=== PATIENT | male | born 1940 | race Caucasian/White ===

== ENCOUNTER 2018-05-02 10:23 | Inpatient (IN) | payer OTHER, MEDICARE ==
[2018-05-02] VITALS (9 sets, daily range): BP systolic 106–142; BP diastolic 51–64; PULSE 60–71; RESP 18–28; TEMP 96.9–99; O2SAT 92–100
[~2018-05-02] VITALS: Ht 182.9 cm; Wt 93.1 kg
[~2018-05-02 10:23] MED LIST: AMLO5TAB2 PO; ATOR40TA16 PO; LISI-515 PO; METF1000 PO; MULT-135 PO; PANT40TA3 PO; TOLT1CAP4 PO; TRAM50 PO; WARF-23 PO
--- NOTE | 2018-05-02 10:44 | PD ---
HPI Chief Complaint: Respiratory Symptoms Time Seen by Provider: 10:30 Travel History International Travel<30 days: No Contact w/Intl Traveler<30days: No Traveled to known affect area: No History of Present Illness HPI This 77-year-old male is complaining of increasing shortness of breath. He says he has been short of breath for 3 or 4 weeks. He has a history of COPD. He smokes a pack of cigarettes a day. He also has had heart valve replacement. He has a [facility]. Basim's valve and is on Coumadin. He is not aware of any history of congestive heart failure. He does have a history of neuropathy of the legs. He has had some swelling of his legs. He had been on water pills and he stopped them about a week ago because are making him urinate quite often. He denies any recent chest pain. He does have a pacemaker. He has been more unsteady on his feet than usual and has had several falls recently PFSH Past Medical History Hx Anticoagulant Therapy: Yes (COUMADIN) Arthritis: Yes Asthma: No Autoimmune Disease: No Anxiety: No Depression: No Heart Rhythm Problems: Yes (HX AFIB, PACER PLACED) Cancer: Yes (BLADDER OVER 10 YEARS) Cardiovascular Problems: Yes (HEART VALVE/PACER) High Cholesterol: Yes (HX) Chemotherapy: Yes (BCG TREATMENTS) Chest Pain: No Congestive Heart Failure: No COPD: No Cerebrovascular Accident: Yes Diabetes: Yes (TYPE 11) Endocrine: No Gastrointestinal Disorders: Yes (GIB) GERD: Yes Genitourinary: Yes (ENLARGED PROSTATE) Hiatal Hernia: Yes (repaired) Hypertension: Yes Immune Disorder: No Implanted Vascular Access Dvce: Yes Musculoskeletal: Yes Neurologic: Yes Psychiatric: No Reproductive: No Respiratory: No Migraines: No Radiation Therapy: No Seizures: No Sickle Cell Disease: No Sleep Apnea: No Thyroid Disease: No Ulcer: No Past Surgical History Abdominal Surgery: Yes (HIATAL HERNIA) AICD: No Arteriovenous Shunt: No Cardiac Surgery: Yes (AORTIC VALVE REPLACEMENT;PACEMAKER) Ear Surgery: No Endocrine Surgery: No Eye Surgery: No Genitourinary Surgery: Yes (BLADDER POLYP REMOVED) Gynecologic Surgery: No Insulin Pump: No Joint Replacement: Yes (RIGHT ) Oral Surgery: No Pacemaker: Yes Thoracic Surgery: No Valve Replacement: Yes Other Surgery: Yes (hiatal hernia repair) Social History Alcohol Use: No Tobacco Use: Yes (PPD) Substance Use: No Allergies-Medications (Allergen,Severity, Reaction): Coded Allergies: MRI PRECAUTION (Verified Adverse Reaction, Severe, ST BASIM PACEMAKER MODEL #[id number], 05/02/18) DML celecoxib (Unverified Adverse Reaction, Unknown, Bleeding, 05/02/18) severe bleeding had to receive 9 units of blood Reported Meds & Prescriptions Reported Meds & Active Scripts Active Reported B12 (Cyanocobalamin) 1,000 Mcg Tab Gabapentin 100 Mg Cap 100 Mg PO BID Multi-Vitamin Daily (Multivitamin) 1 Each Tablet Feosol (Ferrous Sulfate) 325 Mg (65 Mg Iron) Tab 200 Mg PO DAILY Ditropan (Oxybutynin Chloride) 5 Mg Tab 5 Mg PO Q12HR Atorvastatin (Atorvastatin Calcium) 40 Mg Tab 40 Mg PO HS Warfarin 5 Mg Tab 5 Mg PO DAILY Lisinopril 20 Mg Tab 20 Mg PO DAILY Metformin (Metformin HCl) 1,000 Mg Tab 1,000 Mg PO BIDPC With meals Review of Systems General / Constitutional: No: Fever, Chills Eyes: No: Diploplia, Blurred Vision HENT: No: Headaches, Vertigo Cardiovascular: Positive: Edema, No: Chest Pain or Discomfort, Palpitations Respiratory: Positive: Cough, Shortness of Breath, No: Wheezing, Hemoptysis Gastrointestinal: No: Nausea, Vomiting Genitourinary: Positive: Frequency Musculoskeletal: No: Myalgias Skin: No Rash, No Itching Neurologic: Positive: Weakness, Dizziness Endocrine: No: Heat Intolerance, Cold Intolerance Hematologic/Lymphatic: No: Easy Bruising Physical Exam Narrative GENERAL well-developed male SKIN: Focused skin assessment warm/dry. Multiple ecchymotic areas HEAD: Atraumatic. Normocephalic. EYES: Pupils equal and round. No scleral icterus. No injection or drainage. ENT: No nasal bleeding or discharge. Mucous membranes pink and moist. NECK: Trachea midline. No JVD. CARDIOVASCULAR: Regular rate and rhythm. No murmur appreciated. RESPIRATORY: There are occasional rhonchi. There are bibasilar rales GASTROINTESTINAL: Abdomen soft, non-tender, nondistended. Hepatic and splenic margins not palpable. MUSCULOSKELETAL: No obvious deformities. No clubbing. No cyanosis. Bilateral pedal edema NEUROLOGICAL: Awake and alert. No obvious cranial nerve deficits. Motor grossly within normal limits. Slow speech. PSYCHIATRIC: Appropriate mood and affect; insight and judgment normal. Data Data Last Documented VS Vital Signs Date Time Temp Pulse Resp B/P (MAP) Pulse Ox O2 Delivery O2 Flow Rate FiO2 05/02/18 11:00 62 28 119/51 (73) 96 Nasal Cannula 2.00 05/02/18 10:25 99.0 Orders Orders Complete Blood Count With Diff (05/02/18 10:41) Comprehensive Metabolic Panel (05/02/18 10:41) B-Type Natriuretic Peptide (05/02/18 10:41) Act Partial Throm Time (Ptt) (05/02/18 10:41) Prothrombin Time / Inr (Pt) (05/02/18 10:41) Magnesium (Mg) (05/02/18 10:41) Troponin I (05/02/18 10:41) Ua Includes Microscopic (05/02/18 10:41) Iv Access Insert/Monitor (05/02/18 10:41) Electrocardiogram (05/02/18 10:41) Ecg Monitoring (05/02/18 10:41) Oximetry (05/02/18 10:41) Oxygen Administration (05/02/18 10:41) Chest, Single Ap (05/02/18 10:41) Sodium Chloride 0.9% Flush (Ns Flush) (05/02/18 10:45) Albuterol-Ipratropium Neb (Duoneb Neb) (05/02/18 10:45) Ct Brain W/O Iv Contrast(Rout) (05/02/18 11:28) Furosemide Inj (Lasix Inj) (05/02/18 11:45) Admit Order (Ed Use Only) (05/02/18 11:47) Labs Laboratory Tests Test 05/02/18 10:40 White Blood Count 13.8 TH/MM3 Red Blood Count 3.36 MIL/MM3 Hemoglobin 9.6 GM/DL Hematocrit 28.9 % Mean Corpuscular Volume 85.9 FL Mean Corpuscular Hemoglobin 28.7 PG Mean Corpuscular Hemoglobin Concent 33.4 % Red Cell Distribution Width 17.7 % Platelet Count 277 TH/MM3 Mean Platelet Volume 7.6 FL Neutrophils (%) (Auto) 85.6 % Lymphocytes (%) (Auto) 4.9 % Monocytes (%) (Auto) 8.1 % Eosinophils (%) (Auto) 0.1 % Basophils (%) (Auto) 1.3 % Neutrophils # (Auto) 11.8 TH/MM3 Lymphocytes # (Auto) 0.7 TH/MM3 Monocytes # (Auto) 1.1 TH/MM3 Eosinophils # (Auto) 0.0 TH/MM3 Basophils # (Auto) 0.2 TH/MM3 CBC Comment DIFF FINAL Differential Comment Prothrombin Time 56.9 SEC Prothromb Time International Ratio 5.7 RATIO Activated Partial Thromboplast Time 57.8 SEC Blood Urea Nitrogen 59 MG/DL Creatinine 3.80 MG/DL Random Glucose 103 MG/DL Total Protein 7.6 GM/DL Albumin 3.1 GM/DL Calcium Level 8.2 MG/DL Magnesium Level 1.8 MG/DL Alkaline Phosphatase 69 U/L Aspartate Amino Transf (AST/SGOT) 25 U/L Alanine Aminotransferase (ALT/SGPT) 20 U/L Total Bilirubin 0.5 MG/DL Sodium Level 128 MEQ/L Potassium Level 5.6 MEQ/L Chloride Level 99 MEQ/L Carbon Dioxide Level 15.4 MEQ/L Anion Gap 14 MEQ/L Estimat Glomerular Filtration Rate 16 ML/MIN Troponin I 0.04 NG/ML B-Type Natriuretic Peptide 1125 PG/ML [facility] Medical Decision Making Medical Screen Exam Complete: Yes Emergency Medical Condition: Yes Medical Record Reviewed: Yes Differential Diagnosis EKG shows a paced rhythm. Hemoglobin is 9.6 with a white count of 13.8. Sodium is 128 with potassium of 5.6 BUN is elevated at 59 with creatinine of 3.8. Creatinine was previously normal. His INR is 5.7. Patient has congestive failure but also has renal insufficiency. His oxygen saturation on arrival was about 88-90. He has been given repeated nebulizer treatments. He has been diagnosed with COPD in the past and he continues to smoke a pack a day. Narrative Course Patient has CHF and renal insufficiency. He has been given 40 mg IV Lasix. We will need to be admitted for further evaluation Diagnosis Primary Impression: CHF (congestive heart failure) Additional Impression: Renal insufficiency Admitting Information Admitting Physician Requests: Admit Zander Claudio MD May 02, 2018 10:44
[2018-05-02] MEDS ORDERED: SODIUM CHLORIDE 0.9% FLUSH 10 ML FLUSH IVF PRN (10:45)
[2018-05-02] MEDS: RESP: ALBUTEROL 2.5 MG/IPRATROPIUM 0.5 MG NEB (SCH) INH ×2 (10:47→10:48)
[2018-05-02] MEDS ORDERED: FERR200T PO (11:00)
[2018-05-02] MEDS ORDERED: OXYB5TAB8 PO (11:00)
[2018-05-02] MEDS ORDERED: CYAN1TAB24 (11:00)
[2018-05-02] MEDS ORDERED: GABA100C4 PO (11:00)
[2018-05-02] MEDS ORDERED: MULT1TAB46 (11:00)
[2018-05-02 11:03] LABS: AUTOMATED NEUTROPHIL # 11.8 TH/MM3 (1.8-7.7); BASOPHIL # 0.2 TH/MM3 (0-0.2); BASOPHIL % 1.3 % (0.0-2.0); EOSINOPHIL % 0.1 % (0.0-4.0); HEMATOCRIT 28.9 % (39.0-51.0); HEMOGLOBIN 9.6 GM/DL (13.0-17.0); LYMPH % 4.9 % (9.0-44.0); LYMPHOCYTE # 0.7 TH/MM3 (1.0-4.8); MEAN CELL VOLUME 85.9 FL (80.0-100.0); MEAN CORPUSCULAR HEMOGLOBIN 28.7 PG (27.0-34.0); MEAN CORPUSCULAR HGB CONC 33.4 % (32.0-36.0); MEAN PLATELET VOLUME 7.6 FL (7.0-11.0); MONO % 8.1 % (0.0-8.0); MONOCYTE # 1.1 TH/MM3 (0-0.9); NEUT % 85.6 % (16.0-70.0); PLATELET COUNT 277 TH/MM3 (150-450); RED BLOOD COUNT 3.36 MIL/MM3 (4.50-5.90); RED CELL DISTRIBUTION WIDTH 17.7 % (11.6-17.2); WHITE BLOOD COUNT 13.8 TH/MM3 (4.0-11.0)
[2018-05-02 11:16] LABS: CHLORIDE 99 MEQ/L (98-107); SODIUM (NA) 128 MEQ/L (136-145)
[2018-05-02 11:20] LABS: ALBUMIN 3.1 GM/DL (3.4-5.0); CALCIUM 8.2 MG/DL (8.5-10.1)
[2018-05-02 11:21] LABS: BICARBONATE 15.4 MEQ/L (21.0-32.0); BLOOD UREA NITROGEN 59 MG/DL (7-18); GLUCOSE,RANDOM 103 MG/DL (74-106); MAGNESIUM 1.8 MG/DL (1.5-2.5)
[2018-05-02 11:22] LABS: INTERNATIONAL NORMALIZED RATIO 5.7 RATIO; PROTHROMBIN TIME - PATIENT 56.9 SEC (9.8-11.6)
[2018-05-02 11:24] LABS: ALT (GPT) 20 U/L (12-78); AST (GOT) 25 U/L (15-37); GLOMERULAR FILTRATION RATE 16 ML/MIN (>89)
[2018-05-02 11:25] LABS: TOTAL BILIRUBIN ADULT 0.5 MG/DL (0.2-1.0); TOTAL PROTEIN 7.6 GM/DL (6.4-8.2)
--- NOTE | 2018-05-02 11:26 | RADRPT ---
EXAM DATE: 05/02/2018 11:14 AM EDT AGE/SEX: 77 years / Male INDICATIONS: Short of breath CLINICAL DATA: This is the patient's initial encounter. Patient reports that signs and symptoms have been present for 1 month and indicates a pain score of 4/10. MEDICAL/SURGICAL HISTORY: Chronic obstructive pulmonary disease. Hypertension. Carcinoma, kylee dder. AFIb, GERD, Diabetes II Pacemaker. Aortic valve replacement, Hiatal hernia repair COMPARISON: [facility] – [place], CHEST SINGLE AP, 11/21/2016. . FINDINGS: A single AP view of the chest demonstrates cardiomegaly. Pulmonary vessels are engorged. Interstitial prominence throughout the lungs. No effusions. Pacing device overlies the left chest. Median sternot mely wires noted. CONCLUSION: Cardiomegaly with pulmonary vascular engorgement and mild interstitial edema. Electronically signed by: Prudencio Renee MD 05/02/2018 11:25 AM EDT
[2018-05-02 11:27] LABS: ALKALINE PHOSPHATASE 69 U/L (45-117)
[2018-05-02 11:29] LABS: TROPONIN I 0.04 NG/ML (0.02-0.05)
[2018-05-02] MEDS ORDERED: FUROSEMIDE 40 MG/4 ML VIAL IV PUSH ONE (11:45)
[2018-05-02] MEDS ORDERED: RESP: ALBUTEROL 2.5 MG/IPRATROPIUM 0.5 MG NEB (PRN) NEB (12:00)
[2018-05-02] MEDS ORDERED: GLUCAGON 1 MG/ML VIAL OTHER PRN (12:00)
[2018-05-02] MEDS ORDERED: DEXTROSE 50% IN WATER 50 ML VIAL(D50) IV PUSH PRN (12:00)
[2018-05-02] MEDS: INSULIN ASPART SUPPLEMENTAL SCALE SQ SCH ×3 (12:00→20:45)
[2018-05-02] MEDS ORDERED: SODIUM CHLORIDE 0.9% FLUSH 10 ML FLUSH IV FLUSH PRN (12:00)
[2018-05-02] MEDS ORDERED: ACETAMINOPHEN 325 MG TAB PO PRN (12:15)
[2018-05-02] MEDS ORDERED: CALCIUM CARBONATE 500 MG CHEWABLE TAB CHEW PRN (12:15)
[2018-05-02] MEDS ORDERED: ONDANSETRON HCL 4 MG/2 ML VIAL IV PUSH PRN (12:15)
[2018-05-02] MEDS ORDERED: DOCUSATE SODIUM 100 MG CAP PO PRN (12:15)
--- NOTE | 2018-05-02 12:17 | RADRPT ---
EXAM DATE: 05/02/2018 12:01 PM EDT AGE/SEX: 77 years / Male INDICATIONS: Multiple falls. Evaluate for dural hematoma. CLINICAL DATA: This is the patient's initial encounter. Patient reports that signs and symptoms have been present for 3 days and indicates a pain score of 0/10. MEDICAL/SURGICAL HISTORY: Gastroesophageal reflux disease. Carcinoma, bladder. Cerebrovascular di sease. Cardiovascular disease. Hypertension. Diabetes. Pacemaker. Hiatal hernia repair. Aortic v alve replacement. RADIATION DOSE: 58.83 CTDI (mGy) [place] [facility] [place]2016. . TECHNIQUE: CT of the head without contrast. Using automated exposure control and adjustment of the mA and/or kV according to patient size, radiation dose was kept as low as reasonably achievable to ob tain optimal diagnostic quality images. FINDINGS: There is a tiny lacunar infarct in the left parietal periventricular white matter and patchy diminish ed attenuation in periventricular white matter elsewhere. These findings are stable. There is no evid ence of intracranial mass or hemorrhage. There is nothing to suggest acute infarction. The ventricles are stable and symmetric. Posterior fossa and brainstem are unremarkable. The extracranial structure s are benign and intact. CONCLUSION: Stable brain appearance. No acute findings. Electronically signed by: Omar Trent MD 05/02/2018 12:15 PM EDT
[2018-05-02] MEDS: RESP: ALBUTEROL 2.5 MG/IPRATROPIUM 0.5 MG NEB (SCH) NEB ×2 (13:49→19:58)
--- NOTE | 2018-05-02 14:57 | RADRPT ---
EXAM DATE: 05/02/2018 2:37 PM EDT AGE/SEX: 77 years / Male INDICATIONS: Increased Bun and Creatinine. CLINICAL DATA: This is the patient's initial encounter. Patient reports that signs and symptoms have been present for 1 day and indicates a pain score of 0/10. MEDICAL/SURGICAL HISTORY: Hypercholesterolemia. Hypertension. Gastroesophageal reflux disease . CVA. UTI. Bladder polyp. Enlarged prostate. Diabetes. Bladder cancer. Hiatal hernia. . Pacemaker. Aortic valve replacement. Right hip. Hiatal hernia repaired. Bladder polyp removed. COMPARISON: [facility] [place] ABDOMEN & PELVIS W/O CONTRAST, 08/23/2016. . MEASUREMENTS: Right Kidney:__12.6 x 7.3 x 6.9 cm cm Left Kidney:__12.5 x 5.1 x 7.1 cm cm FINDINGS: Right Kidney: There is moderate to severe hydronephrosis without a mass. Left Kidney: There is moderate to severe hydronephrosis without a mass. Bladder: The bladder is distended with estimated volume of 1331 cc and the patient could not void. CONCLUSION: 1. Significantly distended bladder and significant hydronephrosis in the kidneys not present on the prior examination. Distended bladder and the patient was unable to void possibility of bladder outlet obstruction should be entertained. Electronically signed by: Cindy Kincaid MD 05/02/2018 2:56 PM EDT
--- NOTE | 2018-05-02 15:02 | PD.PN.STU ---
Subjective Remarks HPI 77yo male with valve replacement and pacemaker, brought to the ER today for inability to urinate and increase in falls. and daughter are at bedside and provided most of the history. 7 days ago, pt experiencing urinary urgency, frequency, and dysuria. He began taking cipro 2x daily 5 days ago but stopped it after 3 days due to GI upset. His brought him in today because he has not been able to urinate and has not been eating. He fell while trying to get into the car to go to the ER. He fell 3 days ago when he lost his balance in the yard. He uses a cane to ambulate but his says he seems more off balance lately. Daughter says his struggles to walk because of pain from arthritis and always sounds out of breath. Pt denies any changes in his breathing or problems with SOB. They deny any hx of CHF or CKD. PCP is Dr. Gambino. Last saw [facility] in November. Was given lasix for leg swelling but stopped the med 3 weeks ago due to increased urination. Follows with Dr. Franco for chronic anemia. PMH COPD Valve Replacement Pacemaker Chronic anemia DM2 Leg neuropathy hx Bladder CA 10+ years Enlarged Prostate PSH Aortic Valve replacement Pacemaker Hiatal Hernia repair Bladder polyp removal R. Hip replacement Meds Gabapentin Iron oxybutynin Atorvastatin Warfarin Lisinopril Metformin Stiolto Objective Vitals Vital Signs Date Time Temp Pulse Resp B/P (MAP) Pulse Ox O2 Delivery O2 Flow Rate FiO2 05/02/18 13:52 99 2.00 05/02/18 13:19 96.9 60 18 122/60 (80) 96 05/02/18 12:56 05/02/18 11:00 62 28 119/51 (73) 96 Nasal Cannula 2.00 05/02/18 10:35 60 28 93 Nasal Cannula 3.00 05/02/18 10:25 99.0 63 20 142/64 (90) 92 Result Diagram: 05/02/18 1040 05/02/18 1040 Other Results Laboratory Tests Test 05/02/18 10:40 White Blood Count 13.8 TH/MM3 Red Blood Count 3.36 MIL/MM3 Hemoglobin 9.6 GM/DL Hematocrit 28.9 % Mean Corpuscular Volume 85.9 FL Mean Corpuscular Hemoglobin 28.7 PG Mean Corpuscular Hemoglobin Concent 33.4 % Red Cell Distribution Width 17.7 % Platelet Count 277 TH/MM3 Mean Platelet Volume 7.6 FL Neutrophils (%) (Auto) 85.6 % Lymphocytes (%) (Auto) 4.9 % Monocytes (%) (Auto) 8.1 % Eosinophils (%) (Auto) 0.1 % Basophils (%) (Auto) 1.3 % Neutrophils # (Auto) 11.8 TH/MM3 Lymphocytes # (Auto) 0.7 TH/MM3 Monocytes # (Auto) 1.1 TH/MM3 Eosinophils # (Auto) 0.0 TH/MM3 Basophils # (Auto) 0.2 TH/MM3 CBC Comment DIFF FINAL Differential Comment Prothrombin Time 56.9 SEC Prothromb Time International Ratio 5.7 RATIO Activated Partial Thromboplast Time 57.8 SEC Blood Urea Nitrogen 59 MG/DL Creatinine 3.80 MG/DL Random Glucose 103 MG/DL Total Protein 7.6 GM/DL Albumin 3.1 GM/DL Calcium Level 8.2 MG/DL Magnesium Level 1.8 MG/DL Alkaline Phosphatase 69 U/L Aspartate Amino Transf (AST/SGOT) 25 U/L Alanine Aminotransferase (ALT/SGPT) 20 U/L Total Bilirubin 0.5 MG/DL Sodium Level 128 MEQ/L Potassium Level 5.6 MEQ/L Chloride Level 99 MEQ/L Carbon Dioxide Level 15.4 MEQ/L Anion Gap 14 MEQ/L Estimat Glomerular Filtration Rate 16 ML/MIN Troponin I 0.04 NG/ML B-Type Natriuretic Peptide 1125 PG/ML Imaging Last Impressions Head CT 05/02/18 1128 Signed Impressions: CONCLUSION: Stable brain appearance. No acute findings. Chest X-Ray 05/02/18 1041 Signed Impressions: CONCLUSION: Cardiomegaly with pulmonary vascular engorgement and mild interstitial edema . Objective Remarks General - Well developed, no acute distress, oriented. Skin - numerous bruises on arms and chest consistent with fall. Skin tear over pacemaker HEENT - atraumatic, normocephalic. Pupils equal and reactive. Mouth mucosa is dry, upper dentures Cardiovascular - Regular rate and rhythm. No JVD. 2+ edema up to knees. Pulmonary - Bilateral crackles. On nasal cannula 2 L. No accessory muscle use. Abdominal - No pain with palpation. Neurologic - No focal deficits. Medications and IVs Current Medications Medications (Trade) Dose Ordered Sig/Ludmila Route PRN Reason Start Time Stop Time Status Last Admin Dose Admin Sodium Chloride (NS Flush) 2 ml BID IV FLUSH 05/02/18 21:00 Sodium Chloride (NS Flush) 2 ml UNSCH PRN IV FLUSH FLUSH AFTER USING IV ACCESS 05/02/18 12:00 Furosemide (Lasix Inj) 40 mg BID@09,18 IVP 05/02/18 18:00 Dextrose (D50w (Vial) Inj) 50 ml UNSCH PRN IV PUSH HYPOGLYCEMIA-SEE COMMENTS 05/02/18 12:00 Glucagon (Glucagon Inj) 1 mg UNSCH PRN OTHER HYPOGLYCEMIA-SEE COMMENTS 05/02/18 12:00 Insulin Aspart (NovoLOG SUPPLEMENTAL SCALE) 1 ACHS SLIDING SCALE SQ 05/02/18 12:00 Albuterol/ Ipratropium (Duoneb Neb) 1 ampule Q6HR WHILE AWAKE NEB NEB 05/02/18 14:00 05/02/18 13:49 Albuterol/ Ipratropium (Duoneb Neb) 1 ampule Q2HR NEB PRN NEB SOB/WHEEZING 05/02/18 12:00 Acetaminophen (Tylenol) 650 mg Q4H PRN PO Temp > 100.4 05/02/18 12:15 Ondansetron HCl (Zofran Inj) 4 mg Q6H PRN IV PUSH NAUSEA 05/02/18 12:15 Docusate Sodium (Colace) 100 mg BID PRN PO CONSTIPATION 05/02/18 12:15 Magnesium Hydroxide (Milk Of Magnesia Liq) 30 ml DAILY PRN PO for Severe Constipation 05/02/18 12:15 Calcium Carbonate (Tums Chew) 1,000 mg TID PRN CHEW DYSPEPSIA 05/02/18 12:15 Temazepam (Restoril) 15 mg HS PRN PO INSOMNIA 05/02/18 12:15 A/P Assessment and Plan 77yo male presents with inability to urinate and increase in falls Urinary Retention obstruction vs. medication Urinary cath of 1500cc Hx enlarged prostate Child Hold oxybutynin Consult urologist CHF: acute BNP 1125 CXR cardiomegaly, pulmonary vascular engorgement Order Echo Lasix - monitor cr Liquid restriction diet Acute Kidney Injury etiology urinary obstruction vs CHF Cr 3.8 BUN 59 repeat BMP tomorrow, suspect improvement with diuresis and child placement Possible UTI Urinalysis with culture Falls Hx peripheral neuropathy and falls CT neg - unlikely TIA/stroke PT evaluation DM2: chronic, stable Accu checks Sliding scale insulin Hx Valve replacement: chronic, stable Hold coumadin today Monitor INR daily COPD: chronic Wean O2 if sats are stable Breathing tx PRN The exam, history, and the medical decision-making described in the above note were completed with the assistance of KAMRAN Mohr. I reviewed and agree with the findings presented. I attest that I had a [id number] encounter with the patient on the same day, and personally performed and documented my assessment and findings in the medical record. Lelia Mohr May 02, 2018 15:02 Larisa Hurtado MD May 02, 2018 15:42
[2018-05-02] MEDS ORDERED: TAMSULOSIN HCL 0.4 MG CAP PO ONE (15:15)
--- NOTE | 2018-05-02 15:41 | HHI.HP ---
HPI Service [facility] Primary Care Physician Adele Snell MD Admission Diagnosis CHF, RENAL INSUFFICIENCY Diagnoses: Chief Complaint: Weakness, probalems urinating. Travel History International Travel<30 Days: No Contact w/Intl Traveler <30 Da: No Traveled to Known Affected Are: No History of Present Illness 77-year-old male with a medical history significant for diabetes, aortic valve replacement, pacemaker placement, history of bladder cancer and BPH who presented to the hospital for worsening weakness, trouble urinating and dysuria. History obtained from the patient's daughter who is a nurse and his at bedside. The report for the past couple of weeks, the patient has been having problems with urinary urgency, dysuria, and frequency. He is not able to empty his bladder. They thought he had a urinary tract infection and started him on leftover Cipro about 5 days ago for a few days but he stopped taking it due to GI side effects. Overall the patient has poor functional status and has been having issues with shortness of breath, reportedly recently diagnosed with COPD. He has had increasing bilateral lower extremity swelling, 2 pillow orthopnea. Workup in the emergency room revealed acute renal failure, evidence of acute CHF. Review of Systems Constitutional: DENIES: Fever, Chills Respiratory: COMPLAINS OF: Shortness of breath Cardiovascular: DENIES: Chest pain, Dyspnea on Exertion Gastrointestinal: DENIES: Nausea, Vomiting Genitourinary: COMPLAINS OF: Urinary frequency, Urgency, Dysuria Except as stated in HPI: all other systems reviewed are Neg Past Family Social History Past Medical History PMH COPD Valve Replacement Pacemaker Chronic anemia DM2 Leg neuropathy hx Bladder CA 10+ years Enlarged Prostate Past Surgical History Aortic Valve replacement Pacemaker Hiatal Hernia repair Bladder polyp removal R. Hip replacement Reported Medications Reported Meds & Active Scripts Active Reported B12 (Cyanocobalamin) 1,000 Mcg Tab Gabapentin 100 Mg Cap 100 Mg PO BID Multi-Vitamin Daily (Multivitamin) 1 Each Tablet Feosol (Ferrous Sulfate) 325 Mg (65 Mg Iron) Tab 200 Mg PO DAILY Ditropan (Oxybutynin Chloride) 5 Mg Tab 5 Mg PO Q12HR Atorvastatin (Atorvastatin Calcium) 40 Mg Tab 40 Mg PO HS Warfarin 5 Mg Tab 5 Mg PO DAILY Lisinopril 20 Mg Tab 20 Mg PO DAILY Metformin (Metformin HCl) 1,000 Mg Tab 1,000 Mg PO BIDPC With meals Allergies: Coded Allergies: MRI PRECAUTION (Verified Adverse Reaction, Severe, [facility] PACEMAKER MODEL #[id number], 05/02/18) DML celecoxib (Unverified Adverse Reaction, Unknown, Bleeding, 05/02/18) severe bleeding had to receive 9 units of blood Social History Patient continues to smoke 1 pack of cigarettes per day. Occasional alcohol. Physical Exam Vital Signs Vital Signs Date Time Temp Pulse Resp B/P (MAP) Pulse Ox O2 Delivery O2 Flow Rate FiO2 05/02/18 13:52 99 2.00 05/02/18 13:19 96.9 60 18 122/60 (80) 96 05/02/18 12:56 05/02/18 11:00 62 28 119/51 (73) 96 Nasal Cannula 2.00 05/02/18 10:35 60 28 93 Nasal Cannula 3.00 05/02/18 10:25 99.0 63 20 142/64 (90) 92 Physical Exam GENERAL: Elderly and frail male SKIN: Multiple wounds involving the upper torso from. One wound over his pacemaker appear more deep. Another superficial wound over the right shoulder. HEAD: Atraumatic. Normocephalic. No temporal or scalp tenderness. EYES: Pupils equal round and reactive. Extraocular motions intact. No scleral icterus. No injection or drainage. ENT: Nose without bleeding, purulent drainage or septal hematoma. Throat without erythema, tonsillar hypertrophy or exudate. Uvula midline. Airway patent. NECK: Trachea midline. No JVD or lymphadenopathy. Supple, nontender, no meningeal signs. CARDIOVASCULAR: Regular rate and rhythm without murmurs, gallops, or rubs. RESPIRATORY: Bilateral basilar crackles. Wet cough. GASTROINTESTINAL: Abdomen soft, non-tender, nondistended. MUSCULOSKELETAL: 2+ bilateral lower extremity edema NEUROLOGICAL: Awake and alert. Normal speech. Moves all extremities Laboratory Laboratory Tests Test 05/02/18 10:40 White Blood Count 13.8 Red Blood Count 3.36 Hemoglobin 9.6 Hematocrit 28.9 Mean Corpuscular Volume 85.9 Mean Corpuscular Hemoglobin 28.7 Mean Corpuscular Hemoglobin Concent 33.4 Red Cell Distribution Width 17.7 Platelet Count 277 Mean Platelet Volume 7.6 Neutrophils (%) (Auto) 85.6 Lymphocytes (%) (Auto) 4.9 Monocytes (%) (Auto) 8.1 Eosinophils (%) (Auto) 0.1 Basophils (%) (Auto) 1.3 Neutrophils # (Auto) 11.8 Lymphocytes # (Auto) 0.7 Monocytes # (Auto) 1.1 Eosinophils # (Auto) 0.0 Basophils # (Auto) 0.2 CBC Comment DIFF FINAL Differential Comment Prothrombin Time 56.9 Prothromb Time International Ratio 5.7 Activated Partial Thromboplast Time 57.8 Blood Urea Nitrogen 59 Creatinine 3.80 Random Glucose 103 Total Protein 7.6 Albumin 3.1 Calcium Level 8.2 Magnesium Level 1.8 Alkaline Phosphatase 69 Aspartate Amino Transf (AST/SGOT) 25 Alanine Aminotransferase (ALT/SGPT) 20 Total Bilirubin 0.5 Sodium Level 128 Potassium Level 5.6 Chloride Level 99 Carbon Dioxide Level 15.4 Anion Gap 14 Estimat Glomerular Filtration Rate 16 Troponin I 0.04 B-Type Natriuretic Peptide 1125 Result Diagram: 05/02/18 1040 05/02/18 1040 Imaging Last Impressions Head CT 05/02/18 1128 Signed Impressions: CONCLUSION: Stable brain appearance. No acute findings. Chest X-Ray 05/02/18 1041 Signed Impressions: CONCLUSION: Cardiomegaly with pulmonary vascular engorgement and mild interstitial edema . Renal Ultrasound 05/02/18 0000 Signed Impressions: CONCLUSION: 1. Significantly distended bladder and significant hydronephrosis in the kidne ys not present on the prior examination. Distended bladder and the patient was unable to void possibility of bladder outlet obstruction should be entertained. Caprini VTE Risk Assessment Caprini VTE Risk Assessment: Mod/High Risk (score >= 2) VTE Pharm Contraindication: Coagulopathy,INR elevated Caprini Risk Assessment Model Point Value = 1 Point Value = 2 Point Value = 3 Point Value = 5 Age 41-60 Minor surgery BMI > 25 kg/m2 Swollen legs Varicose veins or History of unexplained or recurrent spontaneous Oral contraceptives or hormone replacement Sepsis (< 1 month) Serious lung disease, including pneumonia (< 1 month) Abnormal pulmonary function Acute myocardial infarction Congestive heart failure (< 1 month) History of inflammatory bowel disease Medical patient at bed rest Age 61-74 Arthroscopic surgery Major open surgery (> 45 min) Laparoscopic surgery (> 45 min) Malignancy Confined to bed (> 72 hours) Immobilizing plaster cast Central venous access Age >= 75 History of VTE Family history of VTE Factor V Leiden Prothrombin [id number] Lupus anticoagulant Anticardiolipin antibodies Elevated serum homocysteine Heparin-induced thrombocytopenia Other congenital or acquired thrombophilia Stroke (< 1 month) Elective arthroplasty Hip, pelvis, or leg fracture Acute spinal cord injury (< 1 month) Prophylaxis Regimen Total Risk Factor Score Risk Level Prophylaxis Regimen 0-1 Low Early ambulation 2 Moderate Order ONE of the following: *Sequential Compression Device (SCD) *Heparin 5000 units SQ BID 3-4 Higher Order ONE of the following medications: *Heparin 5000 units SQ TID *Enoxaparin/Lovenox 40 mg SQ daily (WT < 150 kg, CrCl > 30 mL/min) *Enoxaparin/Lovenox 30 mg SQ daily (WT < 150 kg, CrCl > 10-29 mL/min) *Enoxaparin/Lovenox 30 mg SQ BID (WT < 150 kg, CrCl > 30 mL/min) AND/OR *Sequential Compression Device (SCD) 5 or more Highest Order ONE of the following medications: *Heparin 5000 units SQ TID (Preferred with Epidurals) *Enoxaparin/Lovenox 40 mg SQ daily (WT < 150 kg, CrCl > 30 mL/min) *Enoxaparin/Lovenox 30 mg SQ daily (WT < 150 kg, CrCl > 10-29 mL/min) *Enoxaparin/Lovenox 30 mg SQ BID (WT < 150 kg, CrCl > 30 mL/min) AND *Sequential Compression Device (SCD) Assessment and Plan Problem List: (1) Acute renal failure ICD Code: N17.9 - Acute kidney failure, unspecified (2) CHF (congestive heart failure) ICD Code: I50.9 - Heart failure, unspecified Status: Acute (3) HTN (hypertension) ICD Code: I10 - Essential (primary) hypertension Status: Chronic (4) Tobacco dependence ICD Code: F17.200 - Nicotine dependence, unspecified, uncomplicated Status: Chronic (5) Warfarin-induced coagulopathy ICD Code: T45.511A - Poisoning by anticoagulants, accidental (unintentional), initial encounter; D68.9 - Coagulation defect, unspecified Status: Acute (6) BPH (benign prostatic hyperplasia) ICD Code: N40.0 - Enlarged prostate without lower urinary tract symptoms Status: Chronic (7) COPD (chronic obstructive pulmonary disease) ICD Code: J44.9 - Chronic obstructive pulmonary disease, unspecified Status: Acute Assessment and Plan 77 Y/O male presents with worsening urinary retention, fluid overload, renal failure evidence of CHF. Acute renal failure/Urinary retention/obstruction: Likely secondary to combination of urinary retention, CHF - Pulido placed. 1500 cc out with 10 minutes - Known history of BPH. Start Flomax - Treat CHF with Lasix. Follow I/O closely. Acute CHF: BNP 1125, CXR personally reviewed showing cardiomegaly, pulmonary edema. History of aortic valve replacement and atrial fibrillation. - Lasix IV 40 mg twice daily - Follow I/O - Hold off on lisinopril and beta-wally given acute exacerbation and elevated potassium -2D echo ordered. Possible UTI: - Check UA Debility: Likely secondary to above comorbid conditions. PT to evaluate DM2: chronic, stable Accu checks Sliding scale insulin Hx Valve replacement: chronic, stable. INR 5.7 today Hold Coumadin today Monitor INR daily COPD: chronic Wean O2 if sats are stable Breathing tx PRN Discussed Condition With Lelia Mohr MS4 Physician Certification 2 Midnight Certification Type: Admission for Inpatient Services Order for Inpatient Services The services are ordered in accordance with Medicare regulations or non- Medicare payer requirements, as applicable. In the case of services not specified as inpatient-only, they are appropriately provided as inpatient services in accordance with the 2-midnight benchmark. Estimated LOS (days): 3 days is the estimated time the patient will need to remain in the hospital, assuming treatment plan goals are met and no additional complications. Post-Hospital Plan: [facility] Larisa Hurtado MD May 02, 2018 15:41
[2018-05-02] MEDS: FUROSEMIDE 40 MG/4 ML VIAL IVP SCH (17:18)
--- NOTE | 2018-05-02 17:38 | PD.CONS ---
HPI Service Nephrology Consult Requested By Dr. Hurtado Reason for Consult Acute renal failure Primary Care Physician Adele Snell MD History of Present Illness Patient is a 77-year-old white male with history of diabetes, aortic valve replacement, COPD, bladder cancer status post treatment 10 years ago, who was brought in because he was unable to void, has dysuria, poor stream, unable to empty his bladder and lower abdominal discomfort, ultrasound of the kidneys showed bilateral hydronephrosis with distended bladder, possible bladder outlet obstruction, patient continues to smoke cigarettes that he states he is aware of enlarged prostate but has not followed up with urology, Pulido catheter is in place and he is passing urine 3.2 L was collected. His baseline creatinine was 0.8 in October 2016. Current creatinine is 3.8 and potassium was 5.6. Review of Systems Constitutional: COMPLAINS OF: Fatigue Respiratory: COMPLAINS OF: Cough, Shortness of breath Genitourinary: COMPLAINS OF: Urgency, Dysuria Musculoskeletal: COMPLAINS OF: Joint pain, Stiffness, Joint Swelling, Back pain Past Family Social History Allergies: Coded Allergies: MRI PRECAUTION (Verified Adverse Reaction, Severe, [facility] PACEMAKER MODEL #[id number], 05/02/18) DML celecoxib (Unverified Adverse Reaction, Unknown, Bleeding, 05/02/18) severe bleeding had to receive 9 units of blood Past Medical History COPD Valve Replacement Pacemaker Chronic anemia DM2 Leg neuropathy hx Bladder CA 10+ years Enlarged Prostate AVM and GI bleed CVA Past Surgical History Aortic Valve replacement Pacemaker Hiatal Hernia repair Bladder polyp removal R. Hip replacement Reported Medications Reported Meds & Active Scripts Active Reported B12 (Cyanocobalamin) 1,000 Mcg Tab Gabapentin 100 Mg Cap 100 Mg PO BID Multi-Vitamin Daily (Multivitamin) 1 Each Tablet Feosol (Ferrous Sulfate) 325 Mg (65 Mg Iron) Tab 200 Mg PO DAILY Ditropan (Oxybutynin Chloride) 5 Mg Tab 5 Mg PO Q12HR Atorvastatin (Atorvastatin Calcium) 40 Mg Tab 40 Mg PO HS Warfarin 5 Mg Tab 5 Mg PO DAILY Lisinopril 20 Mg Tab 20 Mg PO DAILY Metformin (Metformin HCl) 1,000 Mg Tab 1,000 Mg PO BIDPC With meals Physical Exam Vital Signs Vital Signs Date Time Temp Pulse Resp B/P (MAP) Pulse Ox O2 Delivery O2 Flow Rate FiO2 6/6/18 17:02 66 05/02/18 13:52 99 2.00 05/02/18 13:19 96.9 60 18 122/60 (80) 96 05/02/18 12:56 05/02/18 11:00 62 28 119/51 (73) 96 Nasal Cannula 2.00 05/02/18 10:35 60 28 93 Nasal Cannula 3.00 05/02/18 10:25 99.0 63 20 142/64 (90) 92 05/02/18 03:00 96.9 71 18 120/58 (78) 100 Physical Exam GENERAL: Well-nourished, well-developed patient. SKIN: Warm and dry. HEAD: Normocephalic. EYES: No scleral icterus. No injection or drainage. NECK: Supple, trachea midline. No JVD or lymphadenopathy. CARDIOVASCULAR: Regular rate and rhythm without murmurs, gallops, or rubs. RESPIRATORY: Breath sounds diminished at bases with occasional rhonchi GASTROINTESTINAL: Abdomen soft, non-tender, nondistended. EXTREMITIES: No cyanosis, or edema. NEUROLOGICAL: Awake, alert, and oriented x 3. Non-focal. Laboratory Laboratory Tests Test 05/02/18 10:40 05/02/18 16:45 White Blood Count 13.8 Red Blood Count 3.36 Hemoglobin 9.6 Hematocrit 28.9 Mean Corpuscular Volume 85.9 Mean Corpuscular Hemoglobin 28.7 Mean Corpuscular Hemoglobin Concent 33.4 Red Cell Distribution Width 17.7 Platelet Count 277 Mean Platelet Volume 7.6 Neutrophils (%) (Auto) 85.6 Lymphocytes (%) (Auto) 4.9 Monocytes (%) (Auto) 8.1 Eosinophils (%) (Auto) 0.1 Basophils (%) (Auto) 1.3 Neutrophils # (Auto) 11.8 Lymphocytes # (Auto) 0.7 Monocytes # (Auto) 1.1 Eosinophils # (Auto) 0.0 Basophils # (Auto) 0.2 CBC Comment DIFF FINAL Differential Comment Prothrombin Time 56.9 Prothromb Time International Ratio 5.7 Activated Partial Thromboplast Time 57.8 Blood Urea Nitrogen 59 Creatinine 3.80 Random Glucose 103 Total Protein 7.6 Albumin 3.1 Calcium Level 8.2 Magnesium Level 1.8 Alkaline Phosphatase 69 Aspartate Amino Transf (AST/SGOT) 25 Alanine Aminotransferase (ALT/SGPT) 20 Total Bilirubin 0.5 Sodium Level 128 Potassium Level 5.6 Chloride Level 99 Carbon Dioxide Level 15.4 Anion Gap 14 Estimat Glomerular Filtration Rate 16 Troponin I 0.04 0.03 B-Type Natriuretic Peptide 1125 Result Diagram: 05/02/18 1040 05/02/18 1040 Imaging Last Impressions Head CT 05/02/18 1128 Signed Impressions: CONCLUSION: Stable brain appearance. No acute findings. Chest X-Ray 05/02/18 1041 Signed Impressions: CONCLUSION: Cardiomegaly with pulmonary vascular engorgement and mild interstitial edema . Renal Ultrasound 05/02/18 0000 Signed Impressions: CONCLUSION: 1. Significantly distended bladder and significant hydronephrosis in the kidne ys not present on the prior examination. Distended bladder and the patient was unable to void possibility of bladder outlet obstruction should be entertained. Assessment and Plan Problem List: (1) Acute bilateral obstructive uropathy ICD Codes: N13.9 - Obstructive and reflux uropathy, unspecified Plan: Patient appears to have bladder neck obstruction due to enlarged prostate and needs to follow with urology He has responded well to Pulido catheter placement and has good urine output His potassium to decline with post obstructive diuresis (2) Acute renal failure ICD Codes: N17.9 - Acute kidney failure, unspecified Status: Acute Plan: Due to obstructive uropathy, please consult urology to follow-up Nephrology can monitor labs remotely We will follow as needed basis (3) BPH (benign prostatic hyperplasia) ICD Codes: N40.0 - Enlarged prostate without lower urinary tract symptoms Status: Chronic Plan: Urological consult (4) Warfarin-induced coagulopathy ICD Codes: T45.511A - Poisoning by anticoagulants, accidental (unintentional), initial encounter; D68.9 - Coagulation defect, unspecified Status: Acute Plan: INR is 5.7 Josemanuel Gonzalez MD May 02, 2018 17:38
--- NOTE | 2018-05-02 17:41 | ECHRPT ---
Indication: HEART FAILURE CONCLUSIONS Normal left ventricular size. Mild concentric left ventricular hypertrophy. The left ventricular systolic function is normal with an estimated ejection fraction in the range of 55-60%. The left atrial size is moderately dilated. The right atrial size is moderately dilated.. Aortic valve sclerosis and calcification. Moderate to severe aortic stenosis. Moderate mitral valve regurgitation. Heavy calcification of the posterior mitral valve leaflet. Mitral annular calcification. There is moderate tricuspid valve regurgitation. There is estimated [id number] pulmonary hypertension present (range 60-70 mmHg). BP: 122 / 60 HR: 60 Rhythm: Sinus MEASUREMENTS (Male / Female) Normal Values Technical Quality:Very technically difficult study 2D ECHO LV Diastolic Diameter PLAX 4.4 cm 4.2 - 5.9 / 3.9 - 5.3 cm LV Systolic Diameter PLAX 3.7 cm IVS Diastolic Thickness 1.4 cm 0.6 - 1.0 / 0.6 - 0.9 cm LVPW Diastolic Thickness 1.4 cm 0.6 - 1.0 / 0.6 - 0.9 cm LV Relative Wall Thickness 0.6 RV Internal Dim ED PLAX 4.1 cm LVOT Diameter 1.9 cm Aortic Root Diameter 3.1 cm DOPPLER AV Peak Velocity 377.0 cm/s AV Peak Gradient 56.9 mmHg AV Mean Gradient 36.5 mmHg AV Velocity Time Integral 107.5 cm LVOT Peak Velocity 70.5 cm/s LVOT Peak Gradient 2.0 mmHg LVOT Velocity Time Integral 13.6 cm AV Area Cont Eq vti 0.4 cm AV Area Cont Eq pk 0.5 cm Mitral E Point Velocity 184.0 cm/s LV E' Lateral Velocity 8.7 cm/s Mitral E to LV E' Lateral Ratio 21.2 LV E' Septal Velocity 6.3 cm/s Mitral E to LV E' Septal Ratio 29.0 TV Peak Velocity 378.0 cm/s TR Peak Velocity 386.0 cm/s TR Peak Gradient 59.6 mmHg Right Atrial Pressure 10.0 mmHg Pulmonary Artery Systolic Pressu 69.6 mmHg Right Ventricular Systolic Press 69.6 mmHg PV Peak Velocity 36.1 cm/s PV Peak Gradient 0.5 mmHg FINDINGS LEFT VENTRICLE Normal left ventricular size. Mild concentric left ventricular hypertrophy. The left ventricular systolic function is normal with an estimated ejection fraction in the range of 55-60%. RIGHT VENTRICLE Normal right ventricular size and systolic function. LEFT ATRIUM The left atrial size is moderately dilated. RIGHT ATRIUM The right atrial size is moderately dilated. ATRIAL SEPTUM No atrial level shunt is demonstrated by color flow Doppler interrogation. AORTA The aortic root and proximal ascending aorta are not well visualized. MITRAL VALVE Mild thickening of the mitral valve leaflets. Moderate mitral valve regurgitation. Heavy calcification of the posterior mitral valve leaflet. Mitral annular calcification. AORTIC VALVE Aortic valve area is 0.36 cm. Aortic valve mean gradient is 36.5 mmHg. The aortic prosthesis is not well visualized. Moderate to severe aortic stenosis. Aortic valve sclerosis and calcification. TRICUSPID VALVE There is moderate tricuspid valve regurgitation. The estimated pulmonary arterial pressure is 69.6 mmHg. There is estimated [id number] pulmonary hypertension present (range 60-70 mmHg). PULMONARY VALVE No pulmonary valve regurgitation or stenosis. VESSELS The inferior vena cava is normal in size. PERICARDIUM No pericardial effusion. Marco Stephenson MD, FACC (Electronically Signed) Final Date:02 May 2018 17:40
--- NOTE | 2018-05-02 18:15 | EKG ---
Date Performed: 05/02/2018 Time Performed: 10:53:52 PTAGE: 77 years EKG: ELECTRONIC VENTRICULAR PACEMAKER ABNORMAL RHYTHM ECG PREVIOUS TRACING : 11/19/2016 12.18 Since the previous tracing, no significant change noted DOCTOR: Marco Stephenson Interpretating Date/Time 05/02/2018 18:14:31
[2018-05-02] MEDS: TEMAZEPAM 15 MG CAP PO PRN (20:43)
[2018-05-02] MEDS: SODIUM CHLORIDE 0.9% FLUSH 10 ML FLUSH IV FLUSH SCH (20:43)
[2018-05-02 23:12] LABS: BILIRUBIN, URINE NEG (NEG); BLOOD, URINE LARGE (NEG); GLUCOSE,URINE NEG (NEG); KETONE, URINE NEG (NEG); NITRITE,URINE NEG (NEG); URINE COLOR YELLOW (YELLW/STRAW); URINE LEUKOCYTE ESTERASE SMALL (NEG)
[2018-05-02 23:22] LABS: SQUAMOUS EPITHELIAL CELL URINE 0-5 /hpf (0-5); WBC, URINE INNUM /hpf (0-5); WHITE BLOOD CELL CLUMPS MOD
[2018-05-02 23:23] LABS: AMORPHOUS SEDIMENT, URINE MOD; BACTERIA, URINE OCC /hpf
[2018-05-03] VITALS (11 sets, daily range): BP systolic 96–134; BP diastolic 42–60; PULSE 56–80; RESP 17–20; TEMP 97.1–98.4; O2SAT 92–96
[2018-05-03 06:12] LABS: AUTOMATED NEUTROPHIL # 9.4 TH/MM3 (1.8-7.7); BASOPHIL % 0.2 % (0.0-2.0); EOSINOPHIL # 0.1 TH/MM3 (0-0.4); EOSINOPHIL % 0.5 % (0.0-4.0); HEMATOCRIT 24.8 % (39.0-51.0); HEMOGLOBIN 8.3 GM/DL (13.0-17.0); LYMPH % 5.9 % (9.0-44.0); LYMPHOCYTE # 0.7 TH/MM3 (1.0-4.8); MEAN CELL VOLUME 86.1 FL (80.0-100.0); MEAN CORPUSCULAR HEMOGLOBIN 28.9 PG (27.0-34.0); MEAN CORPUSCULAR HGB CONC 33.5 % (32.0-36.0); MEAN PLATELET VOLUME 7.8 FL (7.0-11.0); MONO % 8.9 % (0.0-8.0); NEUT % 84.5 % (16.0-70.0); PLATELET COUNT 238 TH/MM3 (150-450); RED BLOOD COUNT 2.88 MIL/MM3 (4.50-5.90); RED CELL DISTRIBUTION WIDTH 17.3 % (11.6-17.2); WHITE BLOOD COUNT 11.2 TH/MM3 (4.0-11.0)
[2018-05-03 06:23] LABS: PROTHROMBIN TIME - PATIENT 71.3 SEC (9.8-11.6)
[2018-05-03 06:24] LABS: BICARBONATE 20.2 MEQ/L (21.0-32.0)
[2018-05-03 06:27] LABS: CREATININE 2.9 MG/DL (0.60-1.30)
[2018-05-03 06:30] LABS: INTERNATIONAL NORMALIZED RATIO 7.1 RATIO
[2018-05-03] MEDS: RESP: ALBUTEROL 2.5 MG/IPRATROPIUM 0.5 MG NEB (SCH) NEB ×3 (07:31→19:44)
[2018-05-03] MEDS: INSULIN ASPART SUPPLEMENTAL SCALE SQ SCH ×4 (08:00→22:08)
[2018-05-03] MEDS: TAMSULOSIN HCL 0.4 MG CAP PO SCH (08:58)
[2018-05-03] MEDS: FUROSEMIDE 40 MG/4 ML VIAL IVP SCH (08:58)
[2018-05-03] MEDS: SODIUM CHLORIDE 0.9% FLUSH 10 ML FLUSH IV FLUSH SCH ×2 (08:59→22:09)
--- NOTE | 2018-05-03 09:07 | PD.PN.STU ---
Subjective Remarks Patient is sitting up and eating breakfast. Reports feeling better than yesterday but says the compression stockings and SCD are causing him pain and irritation. Denies SOB or abdominal pain. Pulido is not bothering him. Slept through the night. Objective Vitals Vital Signs Date Time Temp Pulse Resp B/P (MAP) Pulse Ox O2 Delivery O2 Flow Rate FiO2 05/03/18 07:31 94 Nasal Cannula 3.00 05/03/18 04:31 97.9 56 20 104/50 (68) 94 05/03/18 00:28 97.1 62 20 96/42 (60) 95 05/02/18 21:02 98.0 67 20 106/56 (73) 94 05/02/18 20:14 62 05/02/18 20:00 94 Nasal Cannula 3.00 05/02/18 17:02 66 05/02/18 13:52 99 2.00 05/02/18 13:19 96.9 60 18 122/60 (80) 96 05/02/18 12:56 05/02/18 11:00 62 28 119/51 (73) 96 Nasal Cannula 2.00 05/02/18 10:35 60 28 93 Nasal Cannula 3.00 05/02/18 10:25 99.0 63 20 142/64 (90) 92 I/O 05/02/18 05/02/18 05/02/18 05/03/18 05/03/18 05/03/18 07:00 15:00 23:00 07:00 15:00 23:00 Intake Total 480 ml Output Total 4120 ml 400 ml Balance -3640 ml -400 ml Intake Oral 480 ml Output Urine Total 4120 ml 400 ml # Voids 1 # Bowel Movements 0 Result Diagram: 05/03/18 0510 05/03/18 0510 Other Results Laboratory Tests Test 05/02/18 10:40 05/02/18 16:45 05/02/18 22:20 05/02/18 23:00 White Blood Count 13.8 TH/MM3 Red Blood Count 3.36 MIL/MM3 Hemoglobin 9.6 GM/DL Hematocrit 28.9 % Mean Corpuscular Volume 85.9 FL Mean Corpuscular Hemoglobin 28.7 PG Mean Corpuscular Hemoglobin Concent 33.4 % Red Cell Distribution Width 17.7 % Platelet Count 277 TH/MM3 Mean Platelet Volume 7.6 FL Neutrophils (%) (Auto) 85.6 % Lymphocytes (%) (Auto) 4.9 % Monocytes (%) (Auto) 8.1 % Eosinophils (%) (Auto) 0.1 % Basophils (%) (Auto) 1.3 % Neutrophils # (Auto) 11.8 TH/MM3 Lymphocytes # (Auto) 0.7 TH/MM3 Monocytes # (Auto) 1.1 TH/MM3 Eosinophils # (Auto) 0.0 TH/MM3 Basophils # (Auto) 0.2 TH/MM3 CBC Comment DIFF FINAL Differential Comment Prothrombin Time 56.9 SEC Prothromb Time International Ratio 5.7 RATIO Activated Partial Thromboplast Time 57.8 SEC Blood Urea Nitrogen 59 MG/DL Creatinine 3.80 MG/DL Random Glucose 103 MG/DL Total Protein 7.6 GM/DL Albumin 3.1 GM/DL Calcium Level 8.2 MG/DL Magnesium Level 1.8 MG/DL Alkaline Phosphatase 69 U/L Aspartate Amino Transf (AST/SGOT) 25 U/L Alanine Aminotransferase (ALT/SGPT) 20 U/L Total Bilirubin 0.5 MG/DL Sodium Level 128 MEQ/L Potassium Level 5.6 MEQ/L Chloride Level 99 MEQ/L Carbon Dioxide Level 15.4 MEQ/L Anion Gap 14 MEQ/L Estimat Glomerular Filtration Rate 16 ML/MIN Troponin I 0.04 NG/ML 0.03 NG/ML 0.04 NG/ML B-Type Natriuretic Peptide 1125 PG/ML Urine Color YELLOW Urine Turbidity SL CLOUDY Urine pH 5.0 Urine Specific Mission 1.015 Urine Protein 30 mg/dL Urine Glucose (UA) NEG mg/dL Urine Ketones NEG mg/dL Urine Occult Blood LARGE Urine Nitrite NEG Urine Bilirubin NEG Urine Urobilinogen 0.2 MG/DL Urine Leukocyte Esterase SMALL Urine RBC 10-14 /hpf Urine WBC INNUM /hpf Urine WBC Clumps MOD Urine Squamous Epithelial Cells 0-5 /hpf Urine Amorphous Sediment MOD Urine Bacteria OCC /hpf Microscopic Urinalysis Comment CATH-CULTURE IND Test 05/03/18 05:10 05/03/18 05:40 White Blood Count 11.2 TH/MM3 Red Blood Count 2.88 MIL/MM3 Hemoglobin 8.3 GM/DL Hematocrit 24.8 % Mean Corpuscular Volume 86.1 FL Mean Corpuscular Hemoglobin 28.9 PG Mean Corpuscular Hemoglobin Concent 33.5 % Red Cell Distribution Width 17.3 % Platelet Count 238 TH/MM3 Mean Platelet Volume 7.8 FL Neutrophils (%) (Auto) 84.5 % Lymphocytes (%) (Auto) 5.9 % Monocytes (%) (Auto) 8.9 % Eosinophils (%) (Auto) 0.5 % Basophils (%) (Auto) 0.2 % Neutrophils # (Auto) 9.4 TH/MM3 Lymphocytes # (Auto) 0.7 TH/MM3 Monocytes # (Auto) 1.0 TH/MM3 Eosinophils # (Auto) 0.1 TH/MM3 Basophils # (Auto) 0.0 TH/MM3 CBC Comment DIFF FINAL Differential Comment Blood Urea Nitrogen 62 MG/DL Creatinine 2.90 MG/DL Random Glucose 101 MG/DL Calcium Level 8.0 MG/DL Sodium Level 131 MEQ/L Potassium Level 5.1 MEQ/L Chloride Level 101 MEQ/L Carbon Dioxide Level 20.2 MEQ/L Anion Gap 10 MEQ/L Estimat Glomerular Filtration Rate 21 ML/MIN Prothrombin Time 71.3 SEC Prothromb Time International Ratio 7.1 RATIO Test 05/02/18 10:40 05/03/18 05:40 Prothromb Time International Ratio 5.7 RATIO 7.1 RATIO Prothrombin Time 56.9 SEC (9.8-11.6) 71.3 SEC (9.8-11.6) Objective Remarks NAD, sitting up right Dimished breath sounds more so on the right lower lob, crackles, dullness on percussion right lower lobe. Regular rate and rhythm 2+ edema bilateral legs and feet, improved from yesterday. Medications and IVs Current Medications Medications (Trade) Dose Ordered Sig/Ludmila Route PRN Reason Start Time Stop Time Status Last Admin Dose Admin Sodium Chloride (NS Flush) 2 ml BID IV FLUSH 05/02/18 21:00 05/02/18 20:43 Sodium Chloride (NS Flush) 2 ml UNSCH PRN IV FLUSH FLUSH AFTER USING IV ACCESS 05/02/18 12:00 Furosemide (Lasix Inj) 40 mg BID@09,18 IVP 05/02/18 18:00 05/02/18 17:18 Dextrose (D50w (Vial) Inj) 50 ml UNSCH PRN IV PUSH HYPOGLYCEMIA-SEE COMMENTS 05/02/18 12:00 Glucagon (Glucagon Inj) 1 mg UNSCH PRN OTHER HYPOGLYCEMIA-SEE COMMENTS 05/02/18 12:00 Insulin Aspart (NovoLOG SUPPLEMENTAL SCALE) 1 ACHS SLIDING SCALE SQ 05/02/18 12:00 Albuterol/ Ipratropium (Duoneb Neb) 1 ampule Q6HR WHILE AWAKE NEB NEB 05/02/18 14:00 05/03/18 07:31 Albuterol/ Ipratropium (Duoneb Neb) 1 ampule Q2HR NEB PRN NEB SOB/WHEEZING 05/02/18 12:00 Acetaminophen (Tylenol) 650 mg Q4H PRN PO Temp > 100.4 05/02/18 12:15 Ondansetron HCl (Zofran Inj) 4 mg Q6H PRN IV PUSH NAUSEA 05/02/18 12:15 Docusate Sodium (Colace) 100 mg BID PRN PO CONSTIPATION 05/02/18 12:15 Magnesium Hydroxide (Milk Of Magnesia Liq) 30 ml DAILY PRN PO for Severe Constipation 05/02/18 12:15 Calcium Carbonate (Tums Chew) 1,000 mg TID PRN CHEW DYSPEPSIA 05/02/18 12:15 Temazepam (Restoril) 15 mg HS PRN PO INSOMNIA 05/02/18 12:15 05/02/18 20:43 Tamsulosin HCl (Flomax) 0.4 mg DAILY PO 05/03/18 09:00 A/P Assessment and Plan Warfarin induced Coagulopathy INR 7.1 Hold Coumadin Repeat INR tomorrow Urinary Retention: stable hx BPH continue flomax Pulido Awaiting consult urologist Acute Kidney Injury improving Cr 2.9, trending down Repeat BMP tomorrow UTI wbc 11.2 Urinalysis positive for leuk esterase/ wbc/ bacteria Pending cultures Begin Rocephin Possible CHF BNP 1125 CXR cardiomegaly, pulmonary vascular engorgement Waiting on Echo results Lasix for pulmonary edema - monitor cr, monitor ins/outs Falls Hx peripheral neuropathy and falls CT neg - unlikely TIA/stroke Hold gabapentin for now PT evaluation DM2: chronic, stable Accu checks Sliding scale insulin Hx Valve replacement: chronic, stable Hold coumadin today Monitor INR daily COPD: chronic Wean O2 if sats are stable Breathing tx PRN The exam, history, and the medical decision-making described in the above note were completed with the assistance of KAMRAN Mohr. I reviewed and agree with the findings presented. I attest that I had a [id number] encounter with the patient on the same day, and personally performed and documented my assessment and findings in the medical record. Lelia Mohr May 03, 2018 09:07 Larisa Hurtado MD May 03, 2018 13:12
--- NOTE | 2018-05-03 13:20 | HHI.PR ---
Subjective Remarks Patient reports he is feeling better today. He slept well last night. Denies increase in shortness of breath. Lower extremity edema is improving. -4 L on fluid balance. Objective Vitals Vital Signs Date Time Temp Pulse Resp B/P (MAP) Pulse Ox O2 Delivery O2 Flow Rate FiO2 05/03/18 09:43 98.0 60 20 112/56 (74) 95 05/03/18 09:09 98.4 80 18 98/54 (69) 96 05/03/18 07:31 94 Nasal Cannula 3.00 05/03/18 04:31 97.9 56 20 104/50 (68) 94 05/03/18 00:28 97.1 62 20 96/42 (60) 95 05/02/18 21:02 98.0 67 20 106/56 (73) 94 05/02/18 20:14 62 05/02/18 20:00 94 Nasal Cannula 3.00 05/02/18 17:02 66 05/02/18 13:52 99 2.00 05/02/18 13:19 96.9 60 18 122/60 (80) 96 I/O 05/02/18 05/02/18 05/02/18 05/03/18 05/03/18 05/03/18 07:00 15:00 23:00 07:00 15:00 23:00 Intake Total 480 ml Output Total 4120 ml 400 ml Balance -3640 ml -400 ml Intake Oral 480 ml Output Urine Total 4120 ml 400 ml # Voids 1 # Bowel Movements 0 Result Diagram: 05/03/18 0510 05/03/18 0510 Objective Remarks GENERAL: Elderly male in no acute distress CARDIOVASCULAR: Normal rate and regular rhythm without murmurs, gallops, or rubs. RESPIRATORY: Good respiratory efforts. Faint crackles at the bases otherwise clear to auscultation bilaterally. GASTROINTESTINAL: Abdomen soft, non-tender, non-distended. Normal active bowel sounds MUSCULOSKELETAL: 1+ bilateral lower extremity edema NEURO: Alert & Oriented x4 to person, place, time, situation. Moves all ext x4 PSYCH: Appropriate mood and affect. A/P Problem List: (1) Acute renal failure ICD Code: N17.9 - Acute kidney failure, unspecified Status: Acute (2) CHF (congestive heart failure) ICD Code: I50.9 - Heart failure, unspecified Status: Acute (3) HTN (hypertension) ICD Code: I10 - Essential (primary) hypertension Status: Chronic (4) Tobacco dependence ICD Code: F17.200 - Nicotine dependence, unspecified, uncomplicated Status: Chronic (5) Warfarin-induced coagulopathy ICD Code: T45.511A - Poisoning by anticoagulants, accidental (unintentional), initial encounter; D68.9 - Coagulation defect, unspecified Status: Acute (6) BPH (benign prostatic hyperplasia) ICD Code: N40.0 - Enlarged prostate without lower urinary tract symptoms Status: Chronic (7) COPD (chronic obstructive pulmonary disease) ICD Code: J44.9 - Chronic obstructive pulmonary disease, unspecified Status: Acute Assessment and Plan 77 Y/O male presents with worsening urinary retention, fluid overload, renal failure evidence of CHF. Acute renal failure/Urinary retention/obstruction: Likely secondary to combination of urinary retention, CHF - Pulido in place and draining well. - Known history of BPH. Patient started on Flomax. Avoid oxybutynin. -Continue to treat CHF with Lasix. Can transition to oral. Follow I/O closely. - Appreciate urology input. Patient is to be discharged with a Pulido to follow- up outpatient with urology. Acute CHF: BNP 1125, CXR personally reviewed showing cardiomegaly, pulmonary edema. History of aortic valve replacement and atrial fibrillation. -Status post Lasix IV. Transition to oral Lasix 20 mg daily - Follow I/O - Hold off on lisinopril and beta-wally given acute exacerbation and elevated potassium - 2D echo results pending Possible UTI: -Start Rocephin. Follow urine cultures Debility: Likely secondary to above comorbid conditions. PT to evaluate DM2: chronic, stable Accu checks Sliding scale insulin Warfarin induced coagulopathy/Hx Valve replacement: INR up to 7 today. No signs of any active bleeding Continue to hold Coumadin today Monitor INR daily COPD: chronic Wean O2 if sats are stable Breathing tx PRN Discharge Planning Follow-up 2D echo, follow urine cultures. Possible discharge in the next 1-2 days. Needs to DC with the Pulido catheter to follow-up outpatient with urology. PT to evaluate. Larisa Hurtado MD May 03, 2018 13:20
--- NOTE | 2018-05-03 17:02 | PD.WCN.NOT ---
Wound Consult Description: Wound consult ordered by for wound management. Communicated with: Alexia MEYERS, Recommendation: 1. Cleanse Right upper extremity and left chest skin tears with normal saline 2. Apply Versatel to right upper extremity skin tear cover with ABD secure with rolled gauze .leave Versatel in place x7 days may change secondary dressing if dressing becomes soiled or dislodged. 3. Apply Xeroform single layer to left chest skin tear change every other day or as needed for dislodgement/exudate 4. Sign and date all dressings.Please avoid placing Adhesive directly on patient skin. Additional Information: Patient was seen today by sports writer for wound management of right upper extremity/ left chest skin tears.Patient alert and oriented x4 MINTO.Denies any discomfort distress at this time.Dressings removed from right upper extremity and left upper chest.Patient noted to have ~4 superficial skin tears to right upper extremity .All skin tears cleansed with normal saline and pat dry Versatel one applied to wound bases and covered with ABD secured with rolled gauze.Dressings signed and dated.Scant bloody drainage noted to posterior forearm skin tear.no signs and symptoms of infection.Superficial skin tear to left upper chest over pace maker cleansed with normal saline and pat dry single layer of Xeroform applied to wound base and left open to air.Armament Mechanic was able to partial reapproximate skin flap on all skin tears.Patient has very friable skin sports writer would recommend avoiding any adhesive directly on skin.Patients INR with in normal range at this time.No acute signs or symptoms of bleeding noted.Patient tolerated wound care well.Armament Mechanic assisted patient in sitting up in bed and meal preparation.Patient had no further questions or concerns upon writers departure. Kev Hester [facility] May 03, 2018 17:02
--- NOTE | 2018-05-03 18:42 | EKG ---
Date Performed: 05/02/2018 Time Performed: 16:32:20 PTAGE: 77 years EKG: ELECTRONIC VENTRICULAR PACEMAKER Consider lateral injury. Underlying rhythm is probably art rial fibrillation. Since PREVIOUS TRACING , no significant change noted, except one Intrinsic beat that appears on present tracing. PREVIOUS TRACIN05/02/2018 10.53 DOCTOR: Nicole Ortega Interpretating Date/Time 05/03/2018 18:40:41
--- NOTE | 2018-05-03 18:46 | EKG ---
Date Performed: 05/02/2018 Time Performed: 22:12:35 PTAGE: 77 years EKG: SUPRAVENTRICULAR RHYTHM Rhythm appears to anaccellerated junctional rhythm, but its fast en ough that the patient is overriding the pacemaker. I cannot exclude atrial fibrillation with a compet ing junctional Pacemaker. The ischemic appearing inferolateral T wave changes may be Simply due to ch ronic ventricular pacing, but myocardial ischemia Should be excluded clinically. INCOMPLETE RIGHT BUN DLE BRANCH BLOCK POSSIBLE LATERAL MYOCARDIAL INFARCTION MODERATE T-WAVE ABNORMALITY, CONSIDER ANTERIO R ISCHEMIA MODERATE T-WAVE ABNORMALITY, CONSIDER INFERIOR ISCHEMIA. ABNORMAL ECG PREVIOUS TRACING : 05/02/2018 16.32 DOCTOR: Nicole Ortega Interpretating Date/Time 05/03/2018 18:44:44
[2018-05-03] MEDS: MAGNESIUM HYDROXIDE SUSP 30 ML CUP PO PRN (20:37)
[2018-05-03] MEDS: TEMAZEPAM 15 MG CAP PO PRN (22:09)
[2018-05-04] VITALS (8 sets, daily range): BP systolic 127–156; BP diastolic 51–70; PULSE 60–64; RESP 18–20; TEMP 96.5–98.9; O2SAT 91–100
[2018-05-04] MEDS: RESP: ALBUTEROL 2.5 MG/IPRATROPIUM 0.5 MG NEB (SCH) NEB ×3 (07:45→20:02)
[2018-05-04 07:49] LABS: HEMATOCRIT 26.1 % (39.0-51.0); HEMOGLOBIN 9.1 GM/DL (13.0-17.0); MEAN CELL VOLUME 86.1 FL (80.0-100.0); MEAN CORPUSCULAR HEMOGLOBIN 29.8 PG (27.0-34.0); MEAN CORPUSCULAR HGB CONC 34.7 % (32.0-36.0); MEAN PLATELET VOLUME 7.9 FL (7.0-11.0); PLATELET COUNT 231 TH/MM3 (150-450); RED BLOOD COUNT 3.03 MIL/MM3 (4.50-5.90); RED CELL DISTRIBUTION WIDTH 17.5 % (11.6-17.2); WHITE BLOOD COUNT 7.7 TH/MM3 (4.0-11.0)
[2018-05-04 07:56] LABS: CALCIUM 8.4 MG/DL (8.5-10.1)
[2018-05-04 07:57] LABS: BICARBONATE 24.4 MEQ/L (21.0-32.0); PROTHROMBIN TIME - PATIENT 29.8 SEC (9.8-11.6)
[2018-05-04] MEDS: INSULIN ASPART SUPPLEMENTAL SCALE SQ SCH ×4 (08:00→20:33)
[2018-05-04 08:08] LABS: CREATININE 1.5 MG/DL (0.60-1.30)
[2018-05-04] MEDS: SODIUM CHLORIDE 0.9% FLUSH 10 ML FLUSH IV FLUSH SCH ×2 (08:13→20:31)
[2018-05-04] MEDS: TAMSULOSIN HCL 0.4 MG CAP PO SCH (08:13)
[2018-05-04] MEDS: FUROSEMIDE 40 MG TAB PO SCH (08:13)
[2018-05-04] MEDS: MAGNESIUM HYDROXIDE SUSP 30 ML CUP PO PRN (08:19)
--- NOTE | 2018-05-04 16:03 | HHI.PR ---
Subjective Remarks Pt has no complaints. Denies any CP/SOB/N/V Objective Vitals Vital Signs Date Time Temp Pulse Resp B/P (MAP) Pulse Ox O2 Delivery O2 Flow Rate FiO2 05/04/18 15:43 97.6 60 18 149/64 (92) 98 05/04/18 11:38 96.6 60 18 154/67 (96) 100 05/04/18 07:59 96.5 60 18 155/67 (96) 100 05/04/18 03:44 20 97 05/04/18 00:12 98.9 64 20 127/51 (76) 91 05/03/18 20:58 97.7 59 20 132/51 (78) 94 05/03/18 19:45 95 Nasal Cannula 2.00 05/03/18 16:00 97.6 60 17 134/60 (84) 96 I/O 05/03/18 05/03/18 05/03/18 05/04/18 05/04/18 05/04/18 07:00 15:00 23:00 07:00 15:00 23:00 Intake Total 920 ml 120 ml Output Total 400 ml 3900 ml 500 ml Balance -400 ml -2980 ml -380 ml Intake Oral 920 ml 120 ml Output Urine Total 400 ml 3900 ml 500 ml Stool Total 0 ml # Voids 1 Result Diagram: 05/04/18 0710 05/04/18 0710 Imaging Last Impressions Head CT 05/02/18 1128 Signed Impressions: CONCLUSION: Stable brain appearance. No acute findings. Chest X-Ray 05/02/18 1041 Signed Impressions: CONCLUSION: Cardiomegaly with pulmonary vascular engorgement and mild interstitial edema . Renal Ultrasound 05/02/18 0000 Signed Impressions: CONCLUSION: 1. Significantly distended bladder and significant hydronephrosis in the kidne ys not present on the prior examination. Distended bladder and the patient was unable to void possibility of bladder outlet obstruction should be entertained. Objective Remarks GENERAL: Elderly male in no acute distress CARDIOVASCULAR: Normal rate and regular rhythm without murmurs RESPIRATORY: Good respiratory efforts. mostly clear to auscultation bilaterally. GASTROINTESTINAL: Abdomen soft, non-tender, non-distended. Normal active bowel sounds MUSCULOSKELETAL: 1+ bilateral lower extremity edema NEURO: Moves all ext x4 A/P Problem List: (1) Acute renal failure ICD Code: N17.9 - Acute kidney failure, unspecified Status: Acute (2) CHF (congestive heart failure) ICD Code: I50.9 - Heart failure, unspecified Status: Acute (3) HTN (hypertension) ICD Code: I10 - Essential (primary) hypertension Status: Chronic (4) Tobacco dependence ICD Code: F17.200 - Nicotine dependence, unspecified, uncomplicated Status: Chronic (5) Warfarin-induced coagulopathy ICD Code: T45.511A - Poisoning by anticoagulants, accidental (unintentional), initial encounter; D68.9 - Coagulation defect, unspecified Status: Acute (6) BPH (benign prostatic hyperplasia) ICD Code: N40.0 - Enlarged prostate without lower urinary tract symptoms Status: Chronic (7) COPD (chronic obstructive pulmonary disease) ICD Code: J44.9 - Chronic obstructive pulmonary disease, unspecified Status: Acute Assessment and Plan 77 Y/O male presents with worsening urinary retention, fluid overload, renal failure evidence of CHF. Acute renal failure/Urinary retention/obstruction: Likely secondary to combination of urinary retention, CHF - Pulido in place and draining well. - Known history of BPH. Patient started on Flomax. Avoid oxybutynin. -Continue to treat CHF with Lasix po (s/p IV lasix). Follow I/O closely. - Appreciate urology input. Patient is to be discharged with a Pulido to follow- up outpatient with urology. Acute CHF: BNP 1125, CXR personally reviewed showing cardiomegaly, pulmonary edema. History of aortic valve replacement and atrial fibrillation. -Status post Lasix IV. On Lasix 40 mg daily - Follow I/O - Hold off on lisinopril and beta-wally given acute exacerbation and elevated potassium - 2D echo showing an EF of 55-60% Possible UTI: -on Rocephin. urine cultures pending Debility: Likely secondary to above comorbid conditions. PT to evaluate DM2: chronic, stable Accu checks Sliding scale insulin Warfarin induced coagulopathy/Hx Valve replacement: INR up to 7.1 yesterday and now down to 3.0. No signs of any active bleeding Continue to hold Coumadin today Monitor INR daily COPD: chronic Wean O2 if sats are stable Breathing tx PRN Discharge Planning follow final urine cultures. Possible discharge tomorrow. Needs to DC with the Pulido catheter to follow-up outpatient with urology. PT evaluated the patient and recommended rehab however apparently Pt is refusing this. agreeable w whatever decision pt wants. Will f/u in AM regarding d/c planning. If he continues to refuse, will offer home health PT and a 3008 form will be done in case pt changes his mind. Walk test has been ordered Daily Iqbal MD May 04, 2018 16:03
[2018-05-05] VITALS (7 sets, daily range): BP systolic 129–168; BP diastolic 60–68; PULSE 58–65; RESP 18–20; TEMP 97–98.7; O2SAT 93–96
[2018-05-05 06:40] LABS: AUTOMATED NEUTROPHIL # 5.6 TH/MM3 (1.8-7.7); BASOPHIL % 0.5 % (0.0-2.0); EOSINOPHIL # 0.2 TH/MM3 (0-0.4); EOSINOPHIL % 2.2 % (0.0-4.0); HEMOGLOBIN 8.7 GM/DL (13.0-17.0); LYMPH % 11.3 % (9.0-44.0); LYMPHOCYTE # 0.8 TH/MM3 (1.0-4.8); MEAN CELL VOLUME 85.7 FL (80.0-100.0); MEAN CORPUSCULAR HEMOGLOBIN 29.7 PG (27.0-34.0); MEAN CORPUSCULAR HGB CONC 34.7 % (32.0-36.0); MEAN PLATELET VOLUME 7.4 FL (7.0-11.0); MONO % 10.6 % (0.0-8.0); MONOCYTE # 0.8 TH/MM3 (0-0.9); NEUT % 75.4 % (16.0-70.0); PLATELET COUNT 289 TH/MM3 (150-450); RED BLOOD COUNT 2.92 MIL/MM3 (4.50-5.90); RED CELL DISTRIBUTION WIDTH 17.9 % (11.6-17.2); WHITE BLOOD COUNT 7.4 TH/MM3 (4.0-11.0)
[2018-05-05 06:47] LABS: INTERNATIONAL NORMALIZED RATIO 2.4 RATIO; PROTHROMBIN TIME - PATIENT 24.2 SEC (9.8-11.6)
[2018-05-05 06:53] LABS: CALCIUM 8.5 MG/DL (8.5-10.1)
[2018-05-05 06:54] LABS: BICARBONATE 26.3 MEQ/L (21.0-32.0); MAGNESIUM 1.9 MG/DL (1.5-2.5)
[2018-05-05] MEDS: RESP: ALBUTEROL 2.5 MG/IPRATROPIUM 0.5 MG NEB (SCH) NEB ×3 (07:25→19:15)
[2018-05-05] MEDS: INSULIN ASPART SUPPLEMENTAL SCALE SQ SCH ×4 (08:11→21:00)
[2018-05-05] MEDS: SODIUM CHLORIDE 0.9% FLUSH 10 ML FLUSH IV FLUSH SCH ×2 (08:14→23:08)
[2018-05-05] MEDS: FUROSEMIDE 40 MG TAB PO SCH (08:15)
[2018-05-05] MEDS: TAMSULOSIN HCL 0.4 MG CAP PO SCH (08:15)
[2018-05-05] MEDS: amLODIPine BESYLATE 5 MG TAB PO SCH (09:00)
--- NOTE | 2018-05-05 11:04 | HHI.PR ---
Subjective Remarks Pt has no complaints. no pain, nausea or vomiting. Per RN, he was very upset this morning but much calmer now. when asked if he would be ok going to rehab he states "I guess'. Objective Vitals Vital Signs Date Time Temp Pulse Resp B/P (MAP) Pulse Ox O2 Delivery O2 Flow Rate FiO2 05/05/18 07:35 97.4 58 20 168/68 (101) 93 05/05/18 07:30 94 21 05/05/18 00:00 97.4 60 20 143/63 (89) 93 05/04/18 20:05 94 21 05/04/18 20:00 98.1 64 20 156/70 (98) 96 05/04/18 15:43 97.6 60 18 149/64 (92) 98 05/04/18 11:38 96.6 60 18 154/67 (96) 100 I/O 05/04/18 05/04/18 05/04/18 05/05/18 05/05/18 05/05/18 07:00 15:00 23:00 07:00 15:00 23:00 Intake Total 120 ml 60 ml 120 ml Output Total 500 ml 200 ml 1150 ml Balance -380 ml -200 ml -1090 ml 120 ml Intake Oral 120 ml 60 ml 120 ml Output Urine Total 500 ml 200 ml 1150 ml Result Diagram: 05/05/18 0545 05/05/18 0545 Imaging Last Impressions Head CT 05/02/18 1128 Signed Impressions: CONCLUSION: Stable brain appearance. No acute findings. Chest X-Ray 05/02/18 1041 Signed Impressions: CONCLUSION: Cardiomegaly with pulmonary vascular engorgement and mild interstitial edema . Renal Ultrasound 05/02/18 0000 Signed Impressions: CONCLUSION: 1. Significantly distended bladder and significant hydronephrosis in the kidne ys not present on the prior examination. Distended bladder and the patient was unable to void possibility of bladder outlet obstruction should be entertained. Objective Remarks GENERAL: laying in bed, at times seems to want to ignore me but answers CARDIOVASCULAR: Normal rate and regular rhythm without murmurs RESPIRATORY: Good respiratory efforts. mostly clear to auscultation bilaterally. GASTROINTESTINAL: Abdomen soft, non-tender, non-distended. Normal active bowel sounds MUSCULOSKELETAL: moves ext A/P Problem List: (1) Acute renal failure ICD Code: N17.9 - Acute kidney failure, unspecified Status: Acute (2) CHF (congestive heart failure) ICD Code: I50.9 - Heart failure, unspecified Status: Acute (3) HTN (hypertension) ICD Code: I10 - Essential (primary) hypertension Status: Chronic (4) Tobacco dependence ICD Code: F17.200 - Nicotine dependence, unspecified, uncomplicated Status: Chronic (5) Warfarin-induced coagulopathy ICD Code: T45.511A - Poisoning by anticoagulants, accidental (unintentional), initial encounter; D68.9 - Coagulation defect, unspecified Status: Acute (6) BPH (benign prostatic hyperplasia) ICD Code: N40.0 - Enlarged prostate without lower urinary tract symptoms Status: Chronic (7) COPD (chronic obstructive pulmonary disease) ICD Code: J44.9 - Chronic obstructive pulmonary disease, unspecified Status: Acute Assessment and Plan 77 Y/O male presents with worsening urinary retention, fluid overload, renal failure evidence of CHF. Acute renal failure/Urinary retention/obstruction: Likely secondary to combination of urinary retention, CHF - Pulido in place and draining well. - Known history of BPH. Patient started on Flomax. Avoid oxybutynin. -Continue to treat CHF with Lasix po (s/p IV lasix). Follow I/O closely. - Appreciate urology input. Patient is to be discharged with a Pulido to follow- up outpatient with urology. Acute CHF: BNP 1125, CXR personally reviewed showing cardiomegaly, pulmonary edema. History of aortic valve replacement and atrial fibrillation. -Status post Lasix IV. On Lasix 40 mg daily - Follow I/O - Hold off on lisinopril and beta-wally given acute exacerbation and elevated potassium - 2D echo showing an EF of 55-60%, also shows mod to severe aortic stenosis. Discussed case w senior environmental consultant cardiology, pt to f/u w cards as an outpt. No need for inpatient consult as he is clinically stable. Possible UTI: -on Rocephin. urine cultures growing group D enteroccocus, waiting for final cultures. Debility: Likely secondary to above comorbid conditions. PT to evaluate DM2: chronic, stable Accu checks Sliding scale insulin Warfarin induced coagulopathy/Hx Valve replacement: INR up to 7.1 yesterday and now down to 2.4. No signs of any active bleeding. I have resumed his coumadin to 5mg po daily w a pharmacy consult in place. Monitor INR daily COPD: chronic Wean O2 if sats are stable Breathing tx PRN Discharge Planning awaiting final urine cultures which should be available later today. Possible discharge later today or tomorrow. Needs to DC with the Pulido catheter to follow-up outpatient with urology. PT evaluated the patient and recommended rehab however apparently Pt initially refusing this but today seems ok w going. agreeable w whatever decision pt wants. Will reconsult CM for assistance w d/c planning. If he continues to refuse, will offer home health PT and a [id number] form will be done in case pt changes his mind. Walk test was ordered and he passed Daily Iqbal MD May 05, 2018 11:04
[2018-05-05] MEDS ORDERED: AMOXICILLIN (TRIHYDRATE) 500 MG CAP PO ONE (12:00)
--- NOTE | 2018-05-05 15:11 | RADRPT ---
EXAM DATE: 05/05/2018 3:04 PM EDT AGE/SEX: 77 years / Male INDICATIONS: Altered mental status. History of multiple falls. CLINICAL DATA: This is the patient's subsequent encounter. Patient reports that signs and symptoms h ave been present for 3 days and indicates a pain score of 0/10. MEDICAL/SURGICAL HISTORY: . Hypercholesterolemia. Hypertension. Gastroesophageal reflux disease. CV A. UTI. Bladder polyp. Enlarged prostate. Diabetes. Bladder cancer. Hiatal hernia. . Pacemaker. Aort ic valve replacement. Right hip. Hiatal hernia repaired. Bladder polyp removed. RADIATION DOSE: 61.26 CTDI (mGy) COMPARISON: [facility], CT BRAIN W/O CONTRAST, 05/02/2018. [facility] [place], CT BRAIN W/O CONTRAST, 06/25/2016. . TECHNIQUE: CT of the head without contrast. Using automated exposure control and adjustment of the mA and/or kV according to patient size, radiation dose was kept as low as reasonably achievable to ob tain optimal diagnostic quality images. FINDINGS: Cerebrum: The ventricles and sulci are mildly prominent, characteristic of central and cortical atro phy, stable from 2016. No evidence of midline shift, mass lesion, hemorrhage or acute infarction. N o extraaxial fluid collections are seen. Posterior Fossa: The cerebellum and brainstem are intact. The 4th ventricle is midline. The cerebe llopontine angle is unremarkable. Extracranial: The visualized portion of the orbits is intact. Skull: The calvaria is intact. No evidence of skull fracture. CONCLUSION: 1. No acute findings in the brain. 2. Stable mild central and cortical atrophy. Electronically signed by: Prudencio Garcia MD 05/05/2018 3:09 PM EDT
[2018-05-05] MEDS: WARFARIN SOD 5 MG TAB PO SCH (17:27)
[2018-05-05] MEDS: AMOXICILLIN (TRIHYDRATE) 500 MG CAP PO SCH (20:13)
[2018-05-05] MEDS: TEMAZEPAM 15 MG CAP PO PRN (23:12)
[2018-05-06] MEDS: AMOXICILLIN (TRIHYDRATE) 500 MG CAP PO SCH ×3 (04:01→21:53)
[2018-05-06 07:33] VITALS: BP 132/60; PULSE 62; RESP 20; TEMP 97.2; O2SAT 94
[2018-05-06] MEDS: RESP: ALBUTEROL 2.5 MG/IPRATROPIUM 0.5 MG NEB (SCH) NEB (07:38)
[2018-05-06 07:39] VITALS: O2SAT 98
[2018-05-06] MEDS: FUROSEMIDE 40 MG TAB PO SCH (08:14)
[2018-05-06] MEDS: amLODIPine BESYLATE 5 MG TAB PO SCH (08:14)
[2018-05-06] MEDS: TAMSULOSIN HCL 0.4 MG CAP PO SCH (08:14)
[2018-05-06] MEDS: INSULIN ASPART SUPPLEMENTAL SCALE SQ SCH ×4 (08:14→21:00)
[2018-05-06] MEDS: SODIUM CHLORIDE 0.9% FLUSH 10 ML FLUSH IV FLUSH SCH ×2 (08:14→21:53)
[2018-05-06 09:30] LABS: INTERNATIONAL NORMALIZED RATIO 2.3 RATIO; PROTHROMBIN TIME - PATIENT 23.2 SEC (9.8-11.6)
[2018-05-06 09:37] LABS: CALCIUM 8.7 MG/DL (8.5-10.1); CREATININE 0.89 MG/DL (0.60-1.30)
[2018-05-06 09:38] LABS: BICARBONATE 26.6 MEQ/L (21.0-32.0)
[2018-05-06 11:09] VITALS: BP 162/67; PULSE 60; RESP 20; TEMP 96.6; O2SAT 96
[2018-05-06 11:36] LABS: FOLATE 8.1 NG/ML (3.1-17.5)
--- NOTE | 2018-05-06 13:43 | HHI.PR ---
Subjective Remarks Pt denies pain, now tells me that he wants to go home and not rehab. Pt knows he is at [facility], still cant tell me the year. states he is in [place], [place] , knows his . He does get annoyed w me asking him questions. Denies any pain , nausea or vomiting Objective Vitals Vital Signs Date Time Temp Pulse Resp B/P (MAP) Pulse Ox O2 Delivery O2 Flow Rate FiO2 05/06/18 11:09 96.6 60 20 162/67 (98) 96 05/06/18 07:39 98 21 05/06/18 07:33 97.2 62 20 132/60 (84) 94 05/05/18 23:50 97.0 60 18 129/60 (83) 93 05/05/18 20:00 98.4 65 18 153/67 (95) 96 05/05/18 19:17 95 21 I/O 05/05/18 05/05/18 05/05/18 05/06/18 05/06/18 05/06/18 07:00 15:00 23:00 07:00 15:00 23:00 Intake Total 60 ml 120 ml 840 ml 60 ml 240 ml Output Total 1150 ml 2850 ml 1000 ml Balance -1090 ml 120 ml -2010 ml -940 ml 240 ml Intake Oral 60 ml 120 ml 840 ml 60 ml 240 ml Output Urine Total 1150 ml 2850 ml 1000 ml # Bowel Movements 1 1 Result Diagram: 05/05/18 0545 05/06/18 0810 Imaging Last Impressions Head CT 05/05/18 0000 Signed Impressions: CONCLUSION: 1. No acute findings in the brain. 2. Stable mild central and cortical atrophy. Chest X-Ray 05/02/18 1041 Signed Impressions: CONCLUSION: Cardiomegaly with pulmonary vascular engorgement and mild interstitial edema . Renal Ultrasound 05/02/18 0000 Signed Impressions: CONCLUSION: 1. Significantly distended bladder and significant hydronephrosis in the kidne ys not present on the prior examination. Distended bladder and the patient was unable to void possibility of bladder outlet obstruction should be entertained. Objective Remarks GENERAL: sitting up on his recliner. appears comfortable CARDIOVASCULAR: Normal rate and regular rhythm without murmurs RESPIRATORY: Good respiratory efforts. mostly clear to auscultation bilaterally. GASTROINTESTINAL: Abdomen soft, non-tender, non-distended. Normal active bowel sounds MUSCULOSKELETAL: moves ext, 5/5 muscle strength on his extremities. follows command neuro: he is alert and oriented. cannot tell me the year. he can repeat "no ands , ifs or buts" gets upset w me asking him questions A/P Problem List: (1) Acute renal failure ICD Code: N17.9 - Acute kidney failure, unspecified Status: Acute (2) CHF (congestive heart failure) ICD Code: I50.9 - Heart failure, unspecified Status: Acute (3) HTN (hypertension) ICD Code: I10 - Essential (primary) hypertension Status: Chronic (4) Tobacco dependence ICD Code: F17.200 - Nicotine dependence, unspecified, uncomplicated Status: Chronic (5) Warfarin-induced coagulopathy ICD Code: T45.511A - Poisoning by anticoagulants, accidental (unintentional), initial encounter; D68.9 - Coagulation defect, unspecified Status: Acute (6) BPH (benign prostatic hyperplasia) ICD Code: N40.0 - Enlarged prostate without lower urinary tract symptoms Status: Chronic (7) COPD (chronic obstructive pulmonary disease) ICD Code: J44.9 - Chronic obstructive pulmonary disease, unspecified Status: Acute Assessment and Plan 77 Y/O male presents with worsening urinary retention, fluid overload, renal failure evidence of CHF. Acute renal failure/Urinary retention/obstruction: Likely secondary to combination of urinary retention, CHF - Pulido in place and draining well. - Known history of BPH. Patient started on Flomax. Avoid oxybutynin. -Continue to treat CHF with Lasix po (s/p IV lasix). Follow I/O closely. - Appreciate urology input. Patient is to be discharged with a Pulido to follow- up outpatient with urology. Acute CHF: BNP 1125, CXR personally reviewed showing cardiomegaly, pulmonary edema. History of aortic valve replacement and atrial fibrillation. -Status post Lasix IV. On Lasix 40 mg daily - Follow I/O - Hold off on lisinopril and beta-wally given acute exacerbation and elevated potassium - 2D echo showing an EF of 55-60%, also shows mod to severe aortic stenosis. Discussed case w powertrain control systems engineer cardiology on 04/04/18, pt to f/u w cards as an outpt. No need for inpatient consult as he is clinically stable. Possible UTI: -on Rocephin. urine cultures growing group D enteroccocus, waiting for final cultures. Debility: Likely secondary to above comorbid conditions. PT to evaluate DM2: chronic, stable Accu checks Sliding scale insulin Warfarin induced coagulopathy/Hx Valve replacement: INR up to 7.1 yesterday and now down to 2.3. No signs of any active bleeding. On coumadin to 5mg po daily w a pharmacy consult in place. Monitor INR daily. Pt is on coumadin Encephalopathy: neurology consulted. PT's concerned about pt's mentation. She feels that he is slow in finding his words and not acting himself. CT brain and ammonia levels negative. Pt has a pacemaker and MRI wasn't ordered. Will await recs from neuro. COPD: chronic Wean O2 if sats are stable Breathing tx PRN Discharge Planning Needs to DC with the Pulido catheter to follow-up outpatient with urology. Pt is scheduled to go to rehab. awaiting final recs from neuro Daily Iqbal MD May 06, 2018 13:43
[2018-05-06 15:05] VITALS: BP 158/66; PULSE 66; RESP 20; TEMP 97; O2SAT 96
[2018-05-06] MEDS: WARFARIN SOD 5 MG TAB PO SCH (16:17)
[2018-05-06] MEDS ORDERED: WARFARIN SOD 2.5 MG TAB PO ONE (18:00)
--- NOTE | 2018-05-06 19:09 | MB ---
cc: Daljit Ferreira MD, PhD DATE: 05/06/2018 REASON FOR CONSULTATION: Mental status change. HISTORY OF PRESENT ILLNESS: Mr. Miller is a 77-year-old man who has a history of aortic valve replacement, atrial fibrillation, and history of previous strokes, who presented to the hospital last week with generalized weakness, difficulty urinating with urinary retention, lower extremity edema, which was getting worse, and alteration in mental status. He was found to have a urinary tract infection, renal insufficiency, as well as CHF. He has been treated appropriately with antibiotics and diuresis. However, he has still had some mental status changes, which are improving actually the past day or 2, but then his noted yesterday, he seemed to have an episode where he had trouble getting words out, was more confused, but he had no focal weakness, no facial droop, etc. This has since improved. PAST MEDICAL HISTORY: Remarkable for [facility] aortic valve replacement. He has a history of pacemaker placement, COPD, history of bladder cancer, BPH, diabetes type 2, peripheral neuropathy with pain, hiatal hernia repair, bladder polyp removal, right hip replacement surgery. CURRENT MEDICATIONS: Coumadin 2.5 mg daily, amoxicillin, and also Coumadin 5 mg daily, amlodipine 5 mg daily, Lasix 40 mg daily, Flomax 0.4 mg daily, Tylenol p.r.n., Zofran p.r.n., Colace p.r.n. constipation, milk of magnesia p.r.n., Restoril p.r.n. NEUROLOGIC EXAMINATION: Blood pressure 158/66, pulse is 66, respirations are 20, temperature 97 degrees. Higher cortical function: Patient is alert. He is oriented to the month but not the year. He says it is 2007. He is oriented to self. He is oriented to place. He recalls 1/3 objects in 3 minutes. His remote memory is normal. 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 His speech is fluent at this time. He makes no paraphasic errors. His comprehension is normal. He has no dysarthria. Cranial nerves: The pupils are equal. Extraocular movements are intact. There is no facial asymmetry. Tongue protrudes to the midline. Facial sensation is normal. Sternocleidomastoid and trapezius strength are normal. On motor exam, he demonstrates 5/5 strength of his deltoid, biceps, triceps, interossei, iliopsoas, quads, hamstring and tibialis anterior muscles. He has no drift. Fine motor skills are normal. DIAGNOSTIC DATA: CT of the brain was accomplished on 05/02/2018 and then repeated yesterday on 05/05/2018. It shows atrophy, chronic ischemic changes, but no acute change present. There is no evidence of stroke. LABORATORY DATA: White count of 7400. When he came in, it was 13,800. Hemoglobin 8.7, hematocrit 25%, platelet count 289,000. Sedimentation rate is 1. Sodium is 141, potassium 4.3, chloride 106, CO2 is 26.6, the BUN is 26, creatinine 0.89, GFR is 83, glucose 107, calcium 8.7. B12 is 1523. INR 2.3, PT 23.2. INR on 05/03 was 7.1. UA: PH is 5, specific gravity 1.015, innumerable wbc's, 10-14 rbc's are identified. Urine culture is positive for Enterococcus faecalis. IMPRESSION: I believe the patient's mental status changes are most likely on the basis of a metabolic encephalopathy from urinary tract infection, dehydration and renal insufficiency, which seems to be improving. I do not find any focal signs to indicate a stroke at this time. Initial CT was negative and then a followup CT 3 days later was negative for acute stroke. The family asked me today about obtaining an MRI scan of the brain for further evaluation. I reviewed the cards associated with his aortic valve. The valve does appear to be MRI compatible with certain MRI machines. There is no literature that the family can provide at this time regarding the pacemaker, if whether or not that is MRI compatible. RECOMMENDATIONS: We will consult with the patient's quantitative developer as to whether or not the pacemaker is MRI compatible. If it is, I would recommend MRI of the brain. If it is not MRI compatible, then obviously would not recommend MRI of the brain because of the potential complications, especially in view of the fact that there is no definitive sign of stroke at this time. Will obtain, for completeness sake, an echocardiogram to check the aortic valve, rule out vegetation as well as carotid ultrasound. Thank you for asking us to see this patient in consultation. Daljit Ferreira MD, PhD ABBY/CHRISTOPHER , 05:53 PM , 07:08 PM
[2018-05-06 19:15] VITALS: O2SAT 95
[2018-05-06 20:00] VITALS: BP 144/65; PULSE 65; RESP 20; TEMP 97.9; O2SAT 95
[2018-05-06 23:25] LABS: BILIRUBIN, URINE NEG (NEG); BLOOD, URINE MOD (NEG); GLUCOSE,URINE NEG (NEG); KETONE, URINE NEG (NEG); NITRITE,URINE NEG (NEG); URINE COLOR YELLOW (YELLW/STRAW); URINE LEUKOCYTE ESTERASE SMALL (NEG)
[2018-05-06 23:29] LABS: BACTERIA, URINE FEW /hpf
[2018-05-07] VITALS (7 sets, daily range): BP systolic 143–169; BP diastolic 65–72; PULSE 59–64; RESP 20; TEMP 97.2–98; O2SAT 91–98
[2018-05-07] MEDS: AMOXICILLIN (TRIHYDRATE) 500 MG CAP PO SCH ×3 (04:55→20:44)
[2018-05-07 06:39] LABS: INTERNATIONAL NORMALIZED RATIO 2.5 RATIO; PROTHROMBIN TIME - PATIENT 25.5 SEC (9.8-11.6)
[2018-05-07] MEDS: INSULIN ASPART SUPPLEMENTAL SCALE SQ SCH ×4 (08:03→20:45)
[2018-05-07] MEDS: amLODIPine BESYLATE 5 MG TAB PO SCH (09:13)
[2018-05-07] MEDS: FUROSEMIDE 40 MG TAB PO SCH (09:13)
[2018-05-07] MEDS: TAMSULOSIN HCL 0.4 MG CAP PO SCH (09:13)
[2018-05-07] MEDS: SODIUM CHLORIDE 0.9% FLUSH 10 ML FLUSH IV FLUSH SCH ×2 (09:13→20:45)
--- NOTE | 2018-05-07 10:20 | RADRPT ---
EXAM DATE: 05/07/2018 9:58 AM EDT AGE/SEX: 77 years / Male INDICATIONS: Carotid stenosis. CLINICAL DATA: This is the patient's initial encounter. Patient reports that signs and symptoms have been present for 1 day and indicates a pain score of 0/10. MEDICAL/SURGICAL HISTORY: Hypercholesterolemia. Gastrointestinal bleed. Arthritis. CVA. AFib . HTN. Dyspnea. Anticoagulant therapy, Coumadin. Enlarged prostate. Dysuria. Type II Diabetes. Carcin yuliana, bladder. Pacemaker. Aortic valve replacement. Hiatal hernia repair. Bladder polyp removed. Righ t hip replacement. Chemotherapy. Blood transfusions. COMPARISON: None available. VELOCITY PARAMETERS: ICA/CCA Ratio: Right 1.5 , Left 2.1 ICA: Right 178 cm/sec, Left 229 cm/sec CCA: Right 122 cm/sec, Left 108 cm/sec ECA: Right 130 cm/sec, Left 161 cm/sec Vertebral: Right 68 cm/sec antegrade, Left 58 cm/sec antegrade FINDINGS: Right Carotid: There is moderate, calcified atherosclerotic plaquing at the bifurcation. The wavefo shai are within normal limits. Left Carotid: There is moderate, calcified atherosclerotic plaquing at the bifurcation. The wavefor ms are within normal limits. Other: None. CONCLUSION: 1. Right Internal Carotid Artery: Findings indicate <50% stenosis. 2. Left Internal Carotid Artery: Findings indicate 50-69% stenosis. Electronically signed by: nEzo Wells MD 05/07/2018 10:19 AM EDT
--- NOTE | 2018-05-07 11:22 | HHI.PR ---
Subjective Remarks Pt seen earlier this morning. Has no complaints. Today he knows his name, , he is in the hospital/in [facility]/ knows the year and the month but cannot tell me the day. He does take some time to answer my questions but compared to other days he is mostly correct. Denied any CP/sob/n/v Objective Vitals Vital Signs Date Time Temp Pulse Resp B/P (MAP) Pulse Ox O2 Delivery O2 Flow Rate FiO2 05/07/18 08:43 97.6 63 20 159/70 (99) 91 05/07/18 00:00 97.9 60 20 145/65 (91) 95 05/06/18 20:00 97.9 65 20 144/65 (91) 95 05/06/18 19:15 95 21 05/06/18 15:05 97.0 66 20 158/66 (96) 96 05/06/18 11:09 96.6 60 20 162/67 (98) 96 I/O 05/06/18 05/06/18 05/06/18 05/07/18 05/07/18 05/07/18 07:00 15:00 23:00 07:00 15:00 23:00 Intake Total 60 ml 1560 ml Output Total 1000 ml 1500 ml 550 ml 800 ml Balance -940 ml 60 ml -550 ml -800 ml Intake Oral 60 ml 1560 ml Output Urine Total 1000 ml 1500 ml 550 ml 800 ml # Bowel Movements 1 2 0 Result Diagram: 05/05/18 0545 05/06/18 0810 Imaging Last Impressions Carotid Artery Ultrasound 05/07/18 0000 Signed Impressions: CONCLUSION: 1. Right Internal Carotid Artery: Findings indicate <50% stenosis. 2. Left Internal Carotid Artery: Findings indicate 50-69% stenosis. Head CT 05/05/18 0000 Signed Impressions: CONCLUSION: 1. No acute findings in the brain. 2. Stable mild central and cortical atrophy. Chest X-Ray 05/02/18 1041 Signed Impressions: CONCLUSION: Cardiomegaly with pulmonary vascular engorgement and mild interstitial edema . Renal Ultrasound 05/02/18 0000 Signed Impressions: CONCLUSION: 1. Significantly distended bladder and significant hydronephrosis in the kidne ys not present on the prior examination. Distended bladder and the patient was unable to void possibility of bladder outlet obstruction should be entertained. Objective Remarks GENERAL:laying in bed CARDIOVASCULAR: appears regular w no murmurs RESPIRATORY: Good respiratory efforts. mostly clear to auscultation bilaterally. GASTROINTESTINAL: Abdomen soft, non-tender, non-distended. Normal active bowel sounds MUSCULOSKELETAL: moves ext, follows command neuro: able to tell me the year, month but cannot tell me the day. knows where he is, city and state, name and . He does take some time to answer questions A/P Problem List: (1) Acute renal failure ICD Code: N17.9 - Acute kidney failure, unspecified Status: Acute (2) CHF (congestive heart failure) ICD Code: I50.9 - Heart failure, unspecified Status: Acute (3) HTN (hypertension) ICD Code: I10 - Essential (primary) hypertension Status: Chronic (4) Tobacco dependence ICD Code: F17.200 - Nicotine dependence, unspecified, uncomplicated Status: Chronic (5) Warfarin-induced coagulopathy ICD Code: T45.511A - Poisoning by anticoagulants, accidental (unintentional), initial encounter; D68.9 - Coagulation defect, unspecified Status: Acute (6) BPH (benign prostatic hyperplasia) ICD Code: N40.0 - Enlarged prostate without lower urinary tract symptoms Status: Chronic (7) COPD (chronic obstructive pulmonary disease) ICD Code: J44.9 - Chronic obstructive pulmonary disease, unspecified Status: Acute Assessment and Plan 77 Y/O male presents with worsening urinary retention, fluid overload, renal failure evidence of CHF. Acute renal failure/Urinary retention/obstruction: Likely secondary to combination of urinary retention, CHF - Pulido in place and draining well. - Known history of BPH. Patient started on Flomax. Avoid oxybutynin. -Continue to treat CHF with Lasix po (s/p IV lasix). Follow I/O closely. - Appreciate urology input. Patient is to be discharged with a Pulido to follow- up outpatient with urology. Acute CHF: BNP 1125, CXR personally reviewed showing cardiomegaly, pulmonary edema. History of aortic valve replacement and atrial fibrillation. -Status post Lasix IV. On Lasix 40 mg daily - Follow I/O - Hold off on lisinopril and beta-wally given acute exacerbation and elevated potassium - 2D echo showing an EF of 55-60%, also shows mod to severe aortic stenosis. Discussed case w cardiac monitor cardiology on 04/04/18, pt to f/u w cards as an outpt. No need for inpatient consult as he is clinically stable. Possible UTI: -s/p Rocephin. urine cultures growing enteroccocus faecalis sensitive to ampicillin, currently on amoxicillin. Debility: Likely secondary to above comorbid conditions. PT to evaluate DM2: chronic, stable Accu checks Sliding scale insulin Warfarin induced coagulopathy/Hx Valve replacement: INR up to 7.1 yesterday and now down to 2.5. No signs of any active bleeding. On coumadin to 5mg po daily w a pharmacy consult in place. Monitor INR daily. Encephalopathy: neurology consulted. PT's concerned about pt's mentation. She feels that he is slow in finding his words and not acting himself. CT brain and ammonia levels negative. Pt has a pacemaker and MRI wasn't ordered. Medical staff called Dr. Villegas's, pt's card placer, office and medical staff was told that pacemaker is "conditional" for MRI. Dr. Ferreira did evaluate the patient. ordered carotid u/s which showed right internal carotid art w <50% stenosis and left internal w 50-69% stenosis. Dr. Ferreira recommends obtaining CTA head/neck which have been ordered. Discussed w Dr. Ferreira regarding pacemaker being "conditional", it was decided that there is not enough evidence to justify the risk to obtain and MRI and risk the pacemaker. Team suspects strongly a metabolic encephalopathy related to his UTI/CHF. Dr. Ferreira will evaluate the patient again later today. COPD: chronic Breathing tx PRN oxygen only as needed Discharge Planning Needs to DC with the Pulido catheter to follow-up outpatient with urology. Pt is scheduled to go to rehab. awaiting final recs from neuro. f/u on CT head/ neck results Daily Iqbal MD May 07, 2018 11:22
[2018-05-07] MEDS ORDERED: IOHEXOL 350 MG/ML 10 ML VIAL (for RAD DIAG) IVCONTRAST ONE (12:22)
--- NOTE | 2018-05-07 15:25 | RADRPT ---
EXAM DATE: 05/07/2018 2:41 PM EDT AGE/SEX: 77 years / Male INDICATIONS: Syncope. CLINICAL DATA: This is the patient's initial encounter. Patient reports that signs and symptoms have been present for 1 day and indicates a pain score of 0/10. MEDICAL/SURGICAL HISTORY: Diabetes. Chronic obstructive pulmonary disease. Pacemaker. aortic valve replacement RADIATION DOSE: 42.31 CTDI (mGy) ; Combined studies COMPARISON: [facility], CTA CAROTID ARTERIES W 3D RECON, 11/19/2016. . TECHNIQUE: Volumetric scanning was performed using a multirow detector CT scanner during bolus infus ion of 90 ml Omnipaque 350 (iohexol) nonionic water-soluble contrast as a cumulative dose for multip le exams. The data was postprocessed with a variety of visualization algorithms including full-volu me maximum intensity projection, multiplanar sliding thin-slab reformation, curved-planar reformation , and surface-rendering techniques. Using automated exposure control and adjustment of the mA and/or kV according to patient size, radiation dose was kept as low as reasonably achievable to obtain opti mal diagnostic quality images. FINDINGS: Aortic Arch: There is a two-vessel origin of the great vessels from the aorta. No evidence of ostia l narrowing is diffuse atherosclerotic plaque associated with the arch vessels. Right Carotid: The common carotid artery is patent. Heavily calcified atheromatous plaque is seen in volving the carotid bulb extending into the ECA and ICA origins. There has been progression from the prior study. A focal high-grade stenosis measuring 70% by NASCET criteria involving the proximal ICA. This stenosis is relatively short segment. The more cephalad portion of the extracranial ICA is valderrama nt. 30% stenosis involving the ECA origin. Left Carotid: Heavily calcified atheromatous plaque involving the carotid bulb and origins of the IC A and ECA. Utilizing NASCET criteria there is a 50% stenosis of the ICA origin. The more cephalad por tion of the extracranial ICA is patent. ECA is patent. Common carotid is patent. Vertebrals: The vertebral arteries have a symmetric diameter. No stenotic lesions are seen. Emphysematous changes noted within the visualized lung apices. Elevated flow velocities and ICA/CCA ratios have been found to correlate with increased degrees of ve ssel stenosis, calculated as percentage of diameter relative to a normal segment of distal ICA/CCA. CONCLUSION: 1. Progression in the patient's calcified atherosclerotic plaque involving the carotid arteries when compared to the 2016 exam. There is a 70% stenosis by NASCET criteria involving the right ICA. Left ICA measures 50%. 2. Patent vertebral arteries. 3. Emphysematous changes. Electronically signed by: Prudencio Renee MD 05/07/2018 3:23 PM EDT
--- NOTE | 2018-05-07 15:38 | RADRPT ---
EXAM DATE: 05/07/2018 2:39 PM EDT AGE/SEX: 77 years / Male INDICATIONS: Syncope. CLINICAL DATA: This is the patient's initial encounter. Patient reports that signs and symptoms have been present for 1 day and indicates a pain score of 0/10. MEDICAL/SURGICAL HISTORY: Diabetes. Chronic obstructive pulmonary disease. Pacemaker. RADIATION DOSE: 42.31 CTDI (mGy) ; Combined studies COMPARISON: [facility], CTA BRAIN W 3D RECON, 11/19/2016. . TECHNIQUE: Volumetric scanning was performed using a multi-row detector CT scanner during bolus infu adrian of 90 ml Omnipaque 350 (iohexol) nonionic water-soluble contrast as a single exam dose. The d myles was post processed with a variety of visualization algorithms including full volume maximum inten sity projection, multi-planar sliding thin slab reformation, curved planar reformation, and surface r endering techniques. Using automated exposure control and adjustment of the mA and/or kV according t o patient size, radiation dose was kept as low as reasonably achievable to obtain optimal diagnostic quality images. FINDINGS: There is excellent visualization of the major intracranial arteries out to the second-order branch ve ssels. There is no evidence for aneurysm, vessel truncation or stenosis, and no evidence for vascula r malformation. CONCLUSION: 1. Normal CT angiogram of the brain. Electronically signed by: Enzo Wells MD 05/07/2018 3:37 PM EDT
[2018-05-07] MEDS: WARFARIN SOD 5 MG TAB PO SCH (16:31)
--- NOTE | 2018-05-07 17:13 | HHI.PR ---
Review/Management Diagnosis Metabolic encephalopathy related to UTI, dehydration--improving. Mental status is better today. I find no evidence of stroke or TIA. Unable to do MRI due to pacemaker. I think his right carotid stenosis is asymptomatic with no lateralizing sx. Will consult vascular surgery for their evaluation. Plan consult vascular surgery regarding right carotid stenosis Diagnosis/Plan: Subjective Subjective Comments No acute events reported States he is feeling better, back to his baseline state Active Medications Current Medications Medications (Trade) Dose Ordered Sig/Ludmila Route Start Time Stop Time Status Last Admin (NS Flush) 2 ml BID IV FLUSH 05/02/18 21:00 05/07/18 09:13 (NS Flush) 2 ml UNSCH PRN IV FLUSH 05/02/18 12:00 (D50w (Vial) Inj) 50 ml UNSCH PRN IV PUSH 05/02/18 12:00 (Glucagon Inj) 1 mg UNSCH PRN OTHER 05/02/18 12:00 (NovoLOG SUPPLEMENTAL SCALE) 1 ACHS SLIDING SCALE SQ 05/02/18 12:00 05/03/18 22:08 (Duoneb Neb) 1 ampule Q2HR NEB PRN NEB 05/02/18 12:00 (Tylenol) 650 mg Q4H PRN PO 05/02/18 12:15 (Zofran Inj) 4 mg Q6H PRN IV PUSH 05/02/18 12:15 (Colace) 100 mg BID PRN PO 05/02/18 12:15 05/03/18 20:33 (Milk Of Magnesia Liq) 30 ml DAILY PRN PO 05/02/18 12:15 05/04/18 08:19 (Tums Chew) 1,000 mg TID PRN CHEW 05/02/18 12:15 (Restoril) 15 mg HS PRN PO 05/02/18 12:15 05/05/18 23:12 (Flomax) 0.4 mg DAILY PO 05/03/18 09:00 05/07/18 09:13 (Lasix) 40 mg DAILY PO 05/04/18 09:00 05/07/18 09:13 (Norvasc) 5 mg DAILY PO 05/05/18 09:00 05/07/18 09:13 Pharmacy Profile Note 0 ml @ 0 mls/hr UNSCH OTHER 05/05/18 11:00 (Coumadin) 5 mg DAILY@1600 PO 05/05/18 16:00 05/07/18 16:31 (Trimox) 500 mg Q8H PO 05/05/18 20:00 05/07/18 12:26 Allergies Allergies Coded Allergies MRI PRECAUTION (Verified Adverse Reaction, Severe, [employer] PACEMAKER MODEL # [id number], 05/02/18) celecoxib (Unverified Adverse Reaction, Unknown, Bleeding, 05/02/18) Review of Systems All other ROS: ROS reviewed as documented in chart Exam I&O / VS Vital Signs Date Time Temp Pulse Resp B/P (MAP) Pulse Ox O2 Delivery O2 Flow Rate FiO2 05/07/18 15:50 97.2 61 20 143/67 (92) 96 Automatic Cuff 05/07/18 12:27 164/72 (102) 05/07/18 11:30 97.2 64 20 169/72 (104) 96 05/07/18 11:30 98 05/07/18 08:43 97.6 63 20 159/70 (99) 91 05/07/18 00:00 97.9 60 20 145/65 (91) 95 05/06/18 20:00 97.9 65 20 144/65 (91) 95 05/06/18 19:15 95 21 General: Alert and Oriented, No acute distress Eye: EOMI Respiratory: Non-labored respirations Neurologic: Alert, Oriented, CN II-XII intact, Normal DTR's Psychiatric: Cooperative, Appropriate mood & affect Exam Comments Alert, oriented times 3. speech is fluent without paraphasic error. Normal recall of presidents. Naming ability is normal CN 2-12 normal MOTOR 5/5 BUE and BLE. No drift. Normal fine motor skills bilaterally Objective Radiology Results CTA brain--normal CTA neck--70% right carotid stenosis. Micro and Labs Laboratory Tests Test 05/06/18 23:00 05/07/18 05:15 Urine Color YELLOW Urine Turbidity CLEAR Urine pH 5.0 Urine Specific Edison 1.020 Urine Protein 30 Urine Glucose (UA) NEG Urine Ketones NEG Urine Occult Blood MOD Urine Nitrite NEG Urine Bilirubin NEG Urine Urobilinogen 0.2 Urine Leukocyte Esterase SMALL Urine RBC 25-49 Urine WBC 20-24 Urine Squamous Epithelial Cells 6-8 Urine Bacteria FEW Microscopic Urinalysis Comment CULTURE INDICATED Prothrombin Time 25.5 Prothromb Time International Ratio 2.5 Date/Time Source Procedure Growth Status 05/06/18 23:00 Urine Clean Catch Urine Culture Pending Received Daljit Ferreira MD PhD May 07, 2018 17:13
[2018-05-08] VITALS: BP 115/54; PULSE 60; RESP 20; TEMP 97.9; O2SAT 96
[2018-05-08] MEDS: AMOXICILLIN (TRIHYDRATE) 500 MG CAP PO SCH ×2 (04:00→13:00)
[2018-05-08 05:57] LABS: INTERNATIONAL NORMALIZED RATIO 2.5 RATIO; PROTHROMBIN TIME - PATIENT 25.4 SEC (9.8-11.6)
--- NOTE | 2018-05-08 07:51 | HHI.PR ---
Review/Management Diagnosis Metabolic encephalopathy related to UTI, dehydration--improving. Mental status is better today. I find no evidence of stroke or TIA. Unable to do MRI due to pacemaker. I think his right carotid stenosis is asymptomatic with no lateralizing sx. Will consult vascular surgery for their evaluation. Plan consult vascular surgery regarding right carotid stenosis Diagnosis/Plan: Subjective Subjective Comments I spoke with cardiac solar maintenance technician this am. Patient had transthoracic echo on 05/02/18 , but the prosthetic aortic valve was not well visualized. Will consult with patients private tutor Dr Villegas regarding need for SONYA to better visualize the valve Active Medications Current Medications Medications (Trade) Dose Ordered Sig/Ludmila Route Start Time Stop Time Status Last Admin (NS Flush) 2 ml BID IV FLUSH 05/02/18 21:00 05/07/18 20:45 (NS Flush) 2 ml UNSCH PRN IV FLUSH 05/02/18 12:00 (D50w (Vial) Inj) 50 ml UNSCH PRN IV PUSH 05/02/18 12:00 (Glucagon Inj) 1 mg UNSCH PRN OTHER 05/02/18 12:00 (NovoLOG SUPPLEMENTAL SCALE) 1 ACHS SLIDING SCALE SQ 05/02/18 12:00 05/03/18 22:08 (Duoneb Neb) 1 ampule Q2HR NEB PRN NEB 05/02/18 12:00 (Tylenol) 650 mg Q4H PRN PO 05/02/18 12:15 (Zofran Inj) 4 mg Q6H PRN IV PUSH 05/02/18 12:15 (Colace) 100 mg BID PRN PO 05/02/18 12:15 05/03/18 20:33 (Milk Of Magnesia Liq) 30 ml DAILY PRN PO 05/02/18 12:15 05/04/18 08:19 (Tums Chew) 1,000 mg TID PRN CHEW 05/02/18 12:15 (Restoril) 15 mg HS PRN PO 05/02/18 12:15 05/05/18 23:12 (Flomax) 0.4 mg DAILY PO 05/03/18 09:00 05/07/18 09:13 (Lasix) 40 mg DAILY PO 05/04/18 09:00 05/07/18 09:13 (Norvasc) 5 mg DAILY PO 6/9/18 09:00 05/07/18 09:13 Pharmacy Profile Note 0 ml @ 0 mls/hr UNSCH OTHER 05/05/18 11:00 (Coumadin) 5 mg DAILY@1600 PO 05/05/18 16:00 05/07/18 16:31 (Trimox) 500 mg Q8H PO 05/05/18 20:00 05/08/18 04:00 Allergies Allergies Coded Allergies MRI PRECAUTION (Verified Adverse Reaction, Severe, [employer]EVE PACEMAKER MODEL # [id number], 05/02/18) celecoxib (Unverified Adverse Reaction, Unknown, Bleeding, 05/02/18) Review of Systems All other ROS: ROS reviewed as documented in chart Exam I&O / VS Vital Signs Date Time Temp Pulse Resp B/P (MAP) Pulse Ox O2 Delivery O2 Flow Rate FiO2 05/08/18 00:00 97.9 60 20 115/54 (74) 96 05/07/18 20:00 98.0 59 20 144/65 (91) 97 05/07/18 19:46 95 21 05/07/18 15:50 97.2 61 20 143/67 (92) 96 Automatic Cuff 05/07/18 12:27 164/72 (102) 05/07/18 11:30 97.2 64 20 169/72 (104) 96 05/07/18 11:30 98 05/07/18 08:43 97.6 63 20 159/70 (99) 91 General: Alert and Oriented, No acute distress Eye: EOMI Respiratory: Non-labored respirations Neurologic: Alert, Oriented, CN II-XII intact, Normal DTR's Psychiatric: Cooperative, Appropriate mood & affect Exam Comments Alert, oriented times 3. speech is fluent without paraphasic error. Normal recall of presidents. Naming ability is normal CN 2-12 normal MOTOR 5/5 BUE and BLE. No drift. Normal fine motor skills bilaterally Objective Micro and Labs Laboratory Tests Test 05/08/18 05:36 Prothrombin Time 25.4 Prothromb Time International Ratio 2.5 Date/Time Source Procedure Growth Status 05/06/18 23:00 Urine Clean Catch Urine Culture Pending Received Daljit Ferreira MD PhD May 08, 2018 07:51
[2018-05-08] MEDS: INSULIN ASPART SUPPLEMENTAL SCALE SQ SCH ×3 (07:54→16:49)
[2018-05-08 08:00] VITALS: BP 134/64; PULSE 60; RESP 18; TEMP 97.8; O2SAT 94; O2SAT 95
--- NOTE | 2018-05-08 09:19 | PD.VS.PN ---
Subjective Subjective/Hospital Course Reviewed imaging studies w/ Dr. Rodriguez No surgical intervention scheduled at this time Recommend CV R/F modification- ASA/Statin therapy Arranged out pt follow up in 4W with a surveillance Carotid Duplex D/w Dr. Timbo Watson [employer] GRADUATE INTERN [facility] [phone] Objective Vitals/I&O Date Time Temp Pulse Resp B/P (MAP) Pulse Ox O2 Delivery O2 Flow Rate FiO2 05/08/18 08:00 97.8 60 18 134/64 (87) 94 05/08/18 00:00 97.9 60 20 115/54 (74) 96 05/07/18 20:00 98.0 59 20 144/65 (91) 97 05/07/18 19:46 95 21 05/07/18 15:50 97.2 61 20 143/67 (92) 96 Automatic Cuff 05/07/18 12:27 164/72 (102) 05/07/18 11:30 97.2 64 20 169/72 (104) 96 05/07/18 11:30 98 05/08/18 05/08/18 05/08/18 07:00 15:00 23:00 Output Total 800 ml Balance -800 ml Laboratory Laboratory Tests Test 05/08/18 05:36 Prothrombin Time 25.4 Prothromb Time International Ratio 2.5 Date/Time Source Procedure Growth Status 05/06/18 23:00 Urine Clean Catch Urine Culture Pending Received Imaging Last 48 hours Impressions Neck CTA 05/07/18 0000 Signed Impressions: CONCLUSION: 1. Progression in the patient's calcified atherosclerotic plaque involving the carotid arteries when compared to the 2016 exam. There is a 70% stenosis by NA SCET criteria involving the right ICA. Left ICA measures 50%. 2. Patent vertebral arteries. 3. Emphysematous changes. Head CTA 05/07/18 0000 Signed Impressions: CONCLUSION: 1. Normal CT angiogram of the brain. Carotid Artery Ultrasound 05/07/18 0000 Signed Impressions: CONCLUSION: 1. Right Internal Carotid Artery: Findings indicate <50% stenosis. 2. Left Internal Carotid Artery: Findings indicate 50-69% stenosis. Emely Watson [facility] May 08, 2018 09:19
[2018-05-08] MEDS: SODIUM CHLORIDE 0.9% FLUSH 10 ML FLUSH IV FLUSH SCH (09:37)
[2018-05-08] MEDS: TAMSULOSIN HCL 0.4 MG CAP PO SCH (09:37)
[2018-05-08] MEDS: FUROSEMIDE 40 MG TAB PO SCH (09:38)
[2018-05-08] MEDS: amLODIPine BESYLATE 5 MG TAB PO SCH (09:38)
--- NOTE | 2018-05-08 10:45 | HHI.PR ---
Subjective Remarks Patient seen and evaluated today in follow-up for encephalopathy, urinary retention and CHF exacerbation. Patient also appears to have urinary tract infection with Enterococcus faecalis. Currently on amoxicillin Still confused today. No new complaints otherwise Case discussed with vascular surgery who recommended outpatient follow-up Objective Vitals Vital Signs Date Time Temp Pulse Resp B/P (MAP) Pulse Ox O2 Delivery O2 Flow Rate FiO2 05/08/18 08:00 97.8 60 18 134/64 (87) 94 05/08/18 00:00 97.9 60 20 115/54 (74) 96 05/07/18 20:00 98.0 59 20 144/65 (91) 97 05/07/18 19:46 95 21 05/07/18 15:50 97.2 61 20 143/67 (92) 96 Automatic Cuff 05/07/18 12:27 164/72 (102) 05/07/18 11:30 97.2 64 20 169/72 (104) 96 05/07/18 11:30 98 I/O 05/07/18 05/07/18 05/07/18 05/08/18 05/08/18 05/08/18 07:00 15:00 23:00 07:00 15:00 23:00 Intake Total 821 ml Output Total 800 ml 2175 ml 800 ml Balance -800 ml -1354 ml -800 ml Intake Oral 821 ml Output Urine Total 800 ml 2175 ml 800 ml # Bowel Movements 0 2 0 Result Diagram: 05/05/18 0545 05/06/18 0810 Imaging Last Impressions Neck CTA 05/07/18 0000 Signed Impressions: CONCLUSION: 1. Progression in the patient's calcified atherosclerotic plaque involving the carotid arteries when compared to the 2016 exam. There is a 70% stenosis by NA SCET criteria involving the right ICA. Left ICA measures 50%. 2. Patent vertebral arteries. 3. Emphysematous changes. Head CTA 05/07/18 0000 Signed Impressions: CONCLUSION: 1. Normal CT angiogram of the brain. Carotid Artery Ultrasound 05/07/18 0000 Signed Impressions: CONCLUSION: 1. Right Internal Carotid Artery: Findings indicate <50% stenosis. 2. Left Internal Carotid Artery: Findings indicate 50-69% stenosis. Head CT 05/05/18 0000 Signed Impressions: CONCLUSION: 1. No acute findings in the brain. 2. Stable mild central and cortical atrophy. Chest X-Ray 05/02/18 1041 Signed Impressions: CONCLUSION: Cardiomegaly with pulmonary vascular engorgement and mild interstitial edema . Renal Ultrasound 05/02/18 0000 Signed Impressions: CONCLUSION: 1. Significantly distended bladder and significant hydronephrosis in the kidne ys not present on the prior examination. Distended bladder and the patient was unable to void possibility of bladder outlet obstruction should be entertained. Objective Remarks Skin with multiple ecchymosis in various stages of healing GENERAL: This is a well-nourished, well-developed patient, confused CARDIOVASCULAR: Regular rate and rhythm without murmurs, gallops, or rubs. RESPIRATORY: Clear to auscultation. Breath sounds equal bilaterally. No wheezes , rales, or rhonchi. GASTROINTESTINAL: Abdomen soft, non-tender, nondistended. Normal active bowel sounds MUSCULOSKELETAL: Extremities without clubbing, cyanosis, or edema. NEURO: Alert & Oriented x4 to person, moves all 4 extremities A/P Problem List: (1) Acute renal failure ICD Code: N17.9 - Acute kidney failure, unspecified Status: Acute Plan: Probably secondary to urinary tract infection and urinary retention Resolved with renal function back to baseline (2) CHF (congestive heart failure) ICD Code: I50.9 - Heart failure, unspecified Status: Acute Plan: Patient with probable right-sided heart failure with acute exacerbation thereof Some evidence of pulmonary artery hypertension Improved after Lasix, will add Coreg instead of Norvasc which can cause fluid retention Follow-up heart rate (3) HTN (hypertension) ICD Code: I10 - Essential (primary) hypertension Status: Chronic Plan: Currently controlled (4) Tobacco dependence ICD Code: F17.200 - Nicotine dependence, unspecified, uncomplicated Status: Chronic Plan: Patient with some evidence of pulmonary artery hypertension and right- sided heart failure question cor pulmonale (5) Warfarin-induced coagulopathy ICD Code: T45.511A - Poisoning by anticoagulants, accidental (unintentional), initial encounter; D68.9 - Coagulation defect, unspecified Status: Acute Plan: Resolved (6) BPH (benign prostatic hyperplasia) ICD Code: N40.0 - Enlarged prostate without lower urinary tract symptoms Status: Chronic Plan: Patient with significant urinary retention of 1.5 L. Maintain Pulido with urology outpatient Continue Flomax and treat urinary tract infection (7) COPD (chronic obstructive pulmonary disease) ICD Code: J44.9 - Chronic obstructive pulmonary disease, unspecified Status: Acute Plan: Continue bronchodilators (8) Acute encephalopathy ICD Code: G93.40 - Encephalopathy, unspecified Status: Resolved Plan: Likely multifactorial due to acute kidney injury with urinary tract infection. Neurological workup unremarkable at this time. Did discuss with vascular surgery regarding carotid artery stenosis who recommended nonsurgical intervention continued follow-up (9) Aortic valve disorder ICD Code: I35.9 - Nonrheumatic aortic valve disorder, unspecified Plan: Cardiology has been consulted by neurology to evaluate prosthetic valve Continue Coumadin No evidence of endocarditis (10) DM type 2 (diabetes mellitus, type 2) ICD Code: E11.9 - Type 2 diabetes mellitus without complications Status: Chronic Plan: Currently controlled metformin has been held Continue diabetic diet with sliding scale and insulin Discharge Planning Likely to snf facility pending cardiology Akila Mccoy MD May 08, 2018 10:45
[2018-05-08 12:00] VITALS: BP 134/60; PULSE 60; RESP 18; TEMP 97; O2SAT 95
[2018-05-08 16:00] VITALS: BP 133/62; PULSE 62; RESP 18; TEMP 97.1; O2SAT 94
[2018-05-08] MEDS ORDERED: AMOX500C PO (16:22)
[2018-05-08] MEDS ORDERED: FURO40TA PO (16:22)
[2018-05-08] MEDS ORDERED: CARV3.125 PO (16:22)
[2018-05-08] MEDS ORDERED: TAMS5CAP PO (16:22)
--- NOTE | 2018-05-08 16:22 | HHI.DCPOC ---
Discharge Care Plan Diagnosis: (1) Acute encephalopathy (2) DM type 2 (diabetes mellitus, type 2) (3) Aortic valve disorder (4) HTN (hypertension) Goals to Promote Your Health * To prevent worsening of your condition and complications * To maintain your health at the optimal level Directions to Meet Your Goals Take your medications as prescribed Follow your dietary instruction Follow activity as directed Keep your appointments as scheduled Take your immunizations and boosters as scheduled If your symptoms worsen call your PCP, if no PCP go to Urgent Care Center or Emergency Room Smoking is Dangerous to Your Health. Avoid second hand smoke Call the 24-hour hour crisis hotline for domestic abuse at Akila Izquierdo MD May 08, 2018 16:22
--- NOTE | 2018-05-08 16:40 | HHI.DS ---
Discharge Summary Admission Date May 02, 2018 at 11:48 Discharge Date: May 08, 2018 Admitting Diagnosis CHF, RENAL INSUFFICIENCY (1) Acute renal failure ICD Code: N17.9 - Acute kidney failure, unspecified Status: Acute (2) CHF (congestive heart failure) ICD Code: I50.9 - Heart failure, unspecified Status: Acute (3) HTN (hypertension) ICD Code: I10 - Essential (primary) hypertension Status: Chronic (4) Tobacco dependence ICD Code: F17.200 - Nicotine dependence, unspecified, uncomplicated Status: Chronic (5) Warfarin-induced coagulopathy ICD Code: T45.511A - Poisoning by anticoagulants, accidental (unintentional), initial encounter; D68.9 - Coagulation defect, unspecified Status: Acute (6) BPH (benign prostatic hyperplasia) ICD Code: N40.0 - Enlarged prostate without lower urinary tract symptoms Status: Chronic (7) COPD (chronic obstructive pulmonary disease) ICD Code: J44.9 - Chronic obstructive pulmonary disease, unspecified Status: Acute (8) Acute encephalopathy ICD Code: G93.40 - Encephalopathy, unspecified Status: Resolved (9) Aortic valve disorder ICD Code: I35.9 - Nonrheumatic aortic valve disorder, unspecified (10) DM type 2 (diabetes mellitus, type 2) ICD Code: E11.9 - Type 2 diabetes mellitus without complications Status: Chronic Procedures None Brief History - From Admission 77-year-old male with a medical history significant for diabetes, aortic valve replacement, pacemaker placement, history of bladder cancer and BPH who presented to the hospital for worsening weakness, trouble urinating and dysuria. History obtained from the patient's daughter who is a nurse and his at bedside. The report for the past couple of weeks, the patient has been having problems with urinary urgency, dysuria, and frequency. He is not able to empty his bladder. They thought he had a urinary tract infection and started him on leftover Cipro about 5 days ago for a few days but he stopped taking it due to GI side effects. Overall the patient has poor functional status and has been having issues with shortness of breath, reportedly recently diagnosed with COPD. He has had increasing bilateral lower extremity swelling, 2 pillow orthopnea. Workup in the emergency room revealed acute renal failure, evidence of acute CHF. CBC/BMP: 05/05/18 0545 05/06/18 0810 Significant Findings Laboratory Tests Test 05/06/18 08:10 05/06/18 09:31 05/06/18 23:00 05/07/18 05:15 Prothrombin Time 23.2 SEC (9.8-11.6) 25.5 SEC (9.8-11.6) Blood Urea Nitrogen 26 MG/DL (7-18) Random Glucose 107 MG/DL (74-106) Estimat Glomerular Filtration Rate 83 ML/MIN (>89) Vitamin B12 Level 1523 PG/ML (193-986) Urine Protein 30 mg/dL (NEG-TRACE) Urine Occult Blood MOD (NEG) Urine Leukocyte Esterase SMALL (NEG) Urine RBC 25-49 /hpf (0-3) Urine WBC 20-24 /hpf (0-5) Urine Squamous Epithelial Cells 6-8 /hpf (0-5) Urine Bacteria FEW /hpf (NONE) Test 05/08/18 05:36 Prothrombin Time 25.4 SEC (9.8-11.6) Imaging Last Impressions Neck CTA 05/07/18 0000 Signed Impressions: CONCLUSION: 1. Progression in the patient's calcified atherosclerotic plaque involving the carotid arteries when compared to the 2016 exam. There is a 70% stenosis by NA SCET criteria involving the right ICA. Left ICA measures 50%. 2. Patent vertebral arteries. 3. Emphysematous changes. Head CTA 05/07/18 0000 Signed Impressions: CONCLUSION: 1. Normal CT angiogram of the brain. Carotid Artery Ultrasound 05/07/18 0000 Signed Impressions: CONCLUSION: 1. Right Internal Carotid Artery: Findings indicate <50% stenosis. 2. Left Internal Carotid Artery: Findings indicate 50-69% stenosis. Head CT 05/05/18 0000 Signed Impressions: CONCLUSION: 1. No acute findings in the brain. 2. Stable mild central and cortical atrophy. Chest X-Ray 05/02/18 1041 Signed Impressions: CONCLUSION: Cardiomegaly with pulmonary vascular engorgement and mild interstitial edema . Renal Ultrasound 05/02/18 0000 Signed Impressions: CONCLUSION: 1. Significantly distended bladder and significant hydronephrosis in the kidne ys not present on the prior examination. Distended bladder and the patient was unable to void possibility of bladder outlet obstruction should be entertained. PE at Discharge Skin with multiple ecchymosis in various stages of healing GENERAL: This is a well-nourished, well-developed patient, confused CARDIOVASCULAR: Regular rate and rhythm without murmurs, gallops, or rubs. RESPIRATORY: Clear to auscultation. Breath sounds equal bilaterally. No wheezes , rales, or rhonchi. GASTROINTESTINAL: Abdomen soft, non-tender, nondistended. Normal active bowel sounds MUSCULOSKELETAL: Extremities without clubbing, cyanosis, or edema. NEURO: Alert & Oriented x4 to person, moves all 4 extremities Pt update on day of discharge see daily progress note Hospital Course Patient seen in follow for AMS/Encephalopathy. Neurological work up was unremarkable. Patient did have congestive heart failure with mild exacerbation did well with gentle diuresis. Patient was not able to have MRI due to PPM. He was found to have urinary retention and UTI. He was treated with amoxicillin for enterococcus. He had 1.5 L urine retention. He did have imaging to suggest carotid stenosis. No further work up was indicated per [facility]. He was quite confused. He was seen by neurology as well. Echocardiogram was done. There was no reason to make an EEG per cardiology. Pt Condition on Discharge: Good Discharge Disposition: Discharge to SNF Discharge Time: <= 30 minutes Discharge Instructions DIET: Follow Instructions for: As Tolerated, No Restrictions Activities you can perform: Regular-No Restrictions Follow up Referrals: Cardiology - 2 Weeks PCP Follow-up - 1 Week Urology - 1 Week Vascular Surgery - 4 Weeks @ Vascular Surgery with Kwan Rodriguez MD Your surveillance Carotid Duplex is scheduled 06/12/18 @ 10:00 Your Follow Up appointment is scheduled on 06/13/18 @ 1:45 New Medications: Amoxicillin (Amoxicillin) 500 Mg Cap 500 MG PO Q8H for Infection, #6 CAP Carvedilol (Coreg) 3.125 Mg Tab 3.125 MG PO Q12HR for Blood Pressure Management, #62 TAB Furosemide (Furosemide) 40 Mg Tab 40 MG PO DAILY for fluid management, #31 TAB Tamsulosin (Flomax) 0.4 Mg Cap 0.4 MG PO DAILY for urinary retention, #60 CAP Continued Medications: Atorvastatin (Atorvastatin) 40 Mg Tab 40 MG PO HS for Cholesterol Management, #30 TAB 0 Refills Cyanocobalamin (B12) 1,000 Mcg Tab Ferrous Sulfate (Feosol) 325 Mg (65 Mg Iron) Tab 200 MG PO DAILY for Nutritional Supplement, #30 TAB 0 Refills Gabapentin (Gabapentin) 100 Mg Cap 300 MG PO TID, #60 CAP 0 Refills Lisinopril (Lisinopril) 20 Mg Tab 20 MG PO DAILY, #30 TAB 0 Refills Metformin (Metformin) 1,000 Mg Tab 1000 MG PO BIDPC for Blood Sugar Management, #60 TAB 0 Refills With meals Multivitamin (Multi-Vitamin Daily) 1 Each Tablet Oxybutynin (Ditropan) 5 Mg Tab 5 MG PO Q12HR for Urinary Symptom Managemen, #60 TAB 0 Refills Warfarin (Warfarin) 5 Mg Tab 5 MG PO DAILY for Blood Clot Prevention, #30 TAB 0 Refills Akila Izquierdo MD May 08, 2018 16:40
[2018-05-08] MEDS: WARFARIN SOD 5 MG TAB PO SCH (16:46)
[2018-05-08] MEDS ORDERED: CARVEDILOL 3.125 MG TAB PO SCH (21:00)
== END 2018-05-08 19:39 | DRG 682 ==
LOC: PHED 10:23 → PHEDA 11:48 → PH3B 12:50
PROVIDERS: ADMIT Hospitalist; ATTEND Hospitalist
DX: N17.9 Acute kidney failure, unspecified (principal); G93.41 Metabolic encephalopathy; D68.9 Coagulation defect, unspecified; T45.515A Adverse effect of anticoagulants, initial encounter; E11.42 Type 2 diabetes mellitus with diabetic polyneuropathy; Z79.84 Long term (current) use of oral hypoglycemic drugs; I27.20 Pulmonary hypertension, unspecified; I11.0 Hypertensive heart disease with heart failure; I50.814 Right heart failure due to left heart failure; I48.91 Unspecified atrial fibrillation; N39.0 Urinary tract infection, site not specified; B95.2 Enterococcus as the cause of diseases classified elsewhere; G57.90 Unspecified mononeuropathy of unspecified lower limb; Z95.2 Presence of prosthetic heart valve; Z95.0 Presence of cardiac pacemaker; N13.30 Unspecified hydronephrosis; N40.1 Benign prostatic hyperplasia with lower urinary tract symptoms; R33.8 Other retention of urine; J44.9 Chronic obstructive pulmonary disease, unspecified; F17.210 Nicotine dependence, cigarettes, uncomplicated; D64.9 Anemia, unspecified; I65.21 Occlusion and stenosis of right carotid artery; Z86.73 Personal history of transient ischemic attack (TIA), and cerebral infarction without residual deficits; Z91.81 History of falling; Z85.51 Personal history of malignant neoplasm of bladder; Z96.641 Presence of right artificial hip joint
CPT/HCPCS: 70450; 70496; 70498; 71045; 76775; 80048; 80053; 81001; 82140; 82607; 82746; 82948; 83735; 83880; 84443; 84484; 85025; 85027; 85610; 85652; 85730; 86592; 87077; 87086; 87186; 93005; 93306; 93880; 94150; 94618; 94640; 94664; J1815; J1940; Q9967

== ENCOUNTER 2018-06-18 00:45 | Observation (INO) ==
[2018-06-18 01:00] LABS: Baso # (Auto) 0.1 th/mm3 (0.0-0.2); Baso % (Auto) 0.8 % (0.0-2.0); Eos # (Auto) 0.1 th/mm3 (0.0-0.4); Eos % (Auto) 1.5 % (0.0-4.0); Hemoglobin 10.8 gm/dL (13.0-17.0); Lymph # (Auto) 2.5 th/mm3 (1.0-4.8); Lymph % (Auto) 30.1 % (9.0-44.0); Mean Corpuscular HGB Conc 33.6 % (32.0-36.0); Mean Corpuscular Hemoglobin 29.8 pg (27.0-34.0); Mean Corpuscular Volume 88.5 fL (80.0-100.0); Mean Platelet Volume 7.3 fL (7.0-11.0); Mono # (Auto) 0.8 th/mm3 (0.0-0.9); Mono % (Auto) 9.2 % (0.0-8.0); Neut # (Auto) 4.8 th/mm3 (1.8-7.7); Neut % (Auto) 58.4 % (16.0-70.0); Platelet Count 314 th/mm3 (150-450); Red Blood Count 3.61 mil/mm3 (4.50-5.90); Red Cell Distribution Width 18.7 % (11.6-17.2); White Blood Count 8.2 th/mm3 (4.0-11.0)
[2018-06-18] MEDS: Sod Chloride 0.9% Inj 1,000 ML IV.CONT SCH ×4 (01:06→16:55)
[2018-06-18 01:15] LABS: Activated Partial Thrombo Time 43.4 sec (24.3-30.1); INR 4.4 Ratio; Prothrombin Time 44.5 sec (9.8-11.6)
--- NOTE | 2018-06-18 01:18 | CT ---
EXAM DATE: 06/18/2018 12:59 AM EDT AGE/SEX: 77 years / Male INDICATIONS: Stroke Alert. Right sided weakness. CLINICAL DATA: This is the patient's initial encounter. Patient reports that signs and symptoms have been present for 1 day and indicates a pain score of 0/10. MEDICAL/SURGICAL HISTORY: Cardiovascular disease. Cerebrovascular disease. Pacemaker. RADIATION DOSE: 56.35 CTDI (mGy) COMPARISON: [facility], CT BRAIN W/O CONTRAST, 05/05/2018. . TECHNIQUE: CT of the head without contrast. Using automated exposure control and adjustment of the mA and/or kV according to patient size, radiation dose was kept as low as reasonably achievable to ob tain optimal diagnostic quality images. DICOM format image data is available electronically for revi ew and comparison. FINDINGS: Cerebrum: Stable cortical and central atrophy. Periventricular and scattered deep white matter tract areas of diminished attenuation characteristic of small vessel ischemic demyelination No evidence of midline shift, mass lesion, hemorrhage or acute infarction. No extraaxial fluid collections are see n. Posterior Fossa: Suggestion of an old pontine infarct on the left. The 4th ventricle is midline. T he cerebellopontine angle is unremarkable. Extracranial: The visualized portion of the orbits is intact. Skull: The calvaria is intact. No evidence of skull fracture. CONCLUSION: 1. Chronic changes with stable cortical and central atrophy and scattered periventricular and deep w susu matter tracts small vessel ischemic demyelination. 2. 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 Report was called by [Dr. Jordan to ]Dr. Go in the ED at 0115 hours Electronically signed by: Jhon Jordan MD 06/18/2018 1:16 AM EDT
[2018-06-18 01:19] LABS: Creatine Kinase 42 U/L (39-308)
--- NOTE | 2018-06-18 01:33 | ED ---
HPI General Chief Complaint: Stroke Alert Stated Complaint: Stroke alert Time Seen by Provider: 06/18/18 00:46 Source: patient Mode of arrival: EMS Limitations: no limitations History of Present Illness HPI Narrative: The patient is a 77 year old male who presents to the [facility] emergency department with a history stroke symptoms that were noticed by ambulance services when they were called out to the patient's house by the patient's . The patient was last seen normal at 21:00 when he went to bed. His reports that she awoke with him having gurgling respirations. She attempted to wake him and he had a decreased level of consciousness and appeared to be altered. Ambulance services were called and the patient was having difficulty speaking and also had decreased public affairs officer strength in the right upper extremity, thus the stroke alert was called. The patient does have a prior history of TIA, diabetes mellitus, chronic anticoagulation on Coumadin. The patient arrives awake and alert. The patient reports that he is unsure why he is here. He denies having any patient is alert to person place, and time, however he is confused about the circumstances that brought him to this facility. He denies having any headache or neck pain. He denies having any known recent fevers. He denies having any worsening cough or congestion. On review of systems otherwise, he denies having any chest pain, shortness of breath, abdominal pain, vomiting, diarrhea, or urinary symptoms. Related Data Home Medications Medication Instructions Recorded Confirmed acetaminophen [Tylenol Arthritis 650 mg PO Q8H PRN 06/18/18 06/18/18 Pain] atorvastatin 40 mg PO DAILY 06/18/18 06/18/18 cyanocobalamin-cobamamide [B12] 1,000 mg SUBLINGUAL DAILY 06/18/18 06/18/18 ferrous sulfate [iron] 325 mg PO DAILY 06/18/18 06/18/18 furosemide 40 mg PO DAILY 06/18/18 06/18/18 lisinopril 20 mg PO BID 06/18/18 06/18/18 metformin 1,000 mg PO BID 06/18/18 06/18/18 tamsulosin 0.4 mg PO DAILY 06/18/18 06/18/18 warfarin 5 mg PO 4XW 06/18/18 06/18/18 warfarin 10 mg PO QTUTHSA 07/23/18 07/23/18 Allergies Allergy/AdvReac Type Severity Reaction Status Date / Time celecoxib AdvReac Unknown Bleeding Verified 06/18/18 00:48 MRI PRECAUTION AdvReac Severe ST STEVE Uncoded 06/18/18 00:48 PACEMAKER MODEL #[id number] Review of Systems ROS Unobtainable All other systems reviewed negative except as stated in HPI REPLACED BY [facility] Medical History Medical History CHF (congestive heart failure) (Acute) Diabetes mellitus (Acute) HLD (hyperlipidemia) (Acute) HTN (hypertension) (Acute) History of bladder cancer (Acute) Pacemaker (Acute) TIA (transient ischemic attack) (Acute) Surgical History Surgical History Aortic valve replaced (Acute) History of repair of hiatal hernia (Acute) S/P hip replacement (Acute) Family History Family History Other Diabetes Social History Social History Substance History: No History of Abuse Second Hand Smoke Exposure: No Smoking Status: Current every day smoker Tobacco Type: Cigarettes How Often Do You Have a Drink Containing Alcohol: Never Recent Travel in [facility] within the Last 8 Weeks: No Recent Out of Country Travel within the Last 8 Weeks: No Immunization History Tetanus Immunization: Unsure Hx Influenza Vaccine This Season: No Exam Const General: cooperative, no acute distress and well developed Nutritional Appearance: well nourished [facility] Head: normocephalic and atraumatic Nose: no nasal discharge and no epistaxis Mouth: oral mucosae normal and moist mucous membranes Throat: posterior oropharynx normal Eyes Sclera: normal sclerae Pupils: PERRL Neck Neck: trachea midline and no JVD Resp Effort & Inspection: no use of accessory muscles Auscultation: clear to auscultation bilaterally Cardio Rate: regular rate Heart Sounds: no gallops, no murmurs and no rubs GI Inspection: non-distended Palpation: soft, no hepatosplenomegaly and nontender Skin General: dry skin (warm) Neuro General: alert, awake and oriented x3 Cranial Nerves: CN's II-XI intact bilaterally Speech: speech normal Motor: no movement abnormalities noted Sensory Exam: no sensory deficits noted Extrem General: normal to inspection, no clubbing, no cyanosis and no edema Psych Mood: congruent mood Affect: normal affect Judgment: judgment good Course Reevaluation(s) Reevaluation #1: The patient on reevaluation continues to be asymptomatic, no recurrence of neurologic symptoms. Consultations Consultation #1: The patient's case including history, pertinent physical examination findings, and laboratory studies were discussed with Dr. Orosco. It was agreed that the patient would be admitted to the hospitalist service. Initial Documented Vital Signs Temperature 98 F 06/18/18 00:54 Pulse Rate 64 06/18/18 00:54 Respiratory Rate 18 06/18/18 00:54 Blood Pressure 184/78 H 06/18/18 00:54 Pulse Oximetry 10 L 06/18/18 00:54 Last Documented Vital Signs Temperature 97.9 F 06/18/18 16:00 Pulse Rate 60 06/18/18 16:00 Respiratory Rate 18 06/18/18 16:00 Blood Pressure 122/59 L 06/18/18 16:00 Pulse Oximetry 97 06/18/18 16:00 NIH Stroke Scale NIH Stroke Scale Level of Consciousness: 0-Alert Orientation Questions: 0-Answers both correct Responds to Commands: 0-Both tasks correct Gaze Eye Movement: 0-Horizontal movement WNL Visual [place]: 0-No visual field defect Facial Movement: 0-Normal Motor Functions Arm LEFT: 0-No drift Motor Functions Arm RIGHT: 0-No drift Motor Functions Leg LEFT: 0-No drift Motor Functions Leg RIGHT: 0-No drift Limb Ataxia: 0-No ataxia Sensory Loss: 0-No sensory loss Best Language: 0-Normal Articulation: 0-Normal Extinction or Inattention Sensory: 0-Absent Total: 0 Quality Measure Queries Stroke Last date observed well: 06/17/18 Last time observed well: 21:00 Medical Decision Making MDM Narrative Medical decision making narrative: During the course of the patient's emergency department visit, the patient's history, examination, and differential diagnosis were reviewed with the patient. The patient was placed on a quality assurance monitor final with oximetry and frequent blood pressure monitoring. The patient had IV access obtained and blood work sent for analysis. The patient was noted prior to arrival to have a blood sugar 111. Stroke alert was called upon the patient's arrival. Dr. Sharma, the neurologist on-call was called and I spoke to him at 12:48 AM. Given the fact that the patient's symptoms have resolved, the patient is not a candidate for TPA at this time. 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 I Spoke to Dr. Jordan regarding this at 1:15 AM. The patient was initially provided normal saline at 70 mL/h, the head of the bed was placed flat. Patient's blood pressure was monitored closely. I-STAT with creatinine revealed a sodium of 131, potassium 4.3, chloride 102, BUN 21, glucose 104, hemoglobin 11.2, creatinine 1.2. Inr is 4.4. The patient's results were discussed with the patient, including the plan of care. I explained that further testing and/ or monitoring is indicated based on the patient's history, examination, and/ or laboratory findings. Therefore, I recommended admission for additional evaluation. The patient expressed understanding and was agreeable with this plan. The patient was admitted to the hospital in guarded condition and sent to a bed under the care of [facility] service. Differential Diagnosis Differential Diagnosis: Ischemic stroke, versus TIA, versus intracranial hemorrhage, versus intracranial mass, versus encephalopathy Medical Records Medical records reviewed: Yes I reviewed the patient's medical records. Lab Data Lab results reviewed: Yes I reviewed the patient's lab results. Result diagrams: 06/18/18 00:46 Lab Results 06/18/18 06/18/18 06/18/18 Range/Units 00:46 00:46 00:46 WBC 8.2 (4.0-11.0) th/mm3 RBC 3.61 L (4.50-5.90) mil/mm3 Hgb 10.8 L (13.0-17.0) gm/dL POC Hgb (Calc) 11.2 L (13.0-17.0) g/dL Hct 32.0 L (39.0-51.0) % POC Hct 33.0 L (39-51.0) % MCV 88.5 (80.0-100.0) fL MCH 29.8 (27.0-34.0) pg MCHC 33.6 (32.0-36.0) % RDW 18.7 H (11.6-17.2) % Plt Count 314 (150-450) th/mm3 MPV 7.3 (7.0-11.0) fL Neut % (Auto) 58.4 (16.0-70.0) % Lymph % (Auto) 30.1 (9.0-44.0) % [place] % (Auto) 9.2 H (0.0-8.0) % Eos % (Auto) 1.5 (0.0-4.0) % Baso % (Auto) 0.8 (0.0-2.0) % Neut # (Auto) 4.8 (1.8-7.7) th/mm3 Lymph # (Auto) 2.5 (1.0-4.8) th/mm3 [place] # (Auto) 0.8 (0.0-0.9) th/mm3 Eos # (Auto) 0.1 (0.0-0.4) th/mm3 Baso # (Auto) 0.1 (0.0-0.2) th/mm3 WBC Differential . Differential Comment Auto diff final PT 44.5 H (9.8-11.6) sec INR 4.4 Ratio APTT 43.4 H (24.3-30.1) sec Fibrinogen 546 H (227-377) mg/dL POC Sodium 139 (137-144) mmol/L POC Potassium 4.3 (3.6-5.0) mmol/L POC Chloride 102 (102-111) mmol/L POC BUN 21 (5-21) mg/dL POC Creatinine 1.2 (0.6-1.3) mg/dL POC Glucose 104 (68-110) mg/dL Total Creatine Kinase 42 (39-308) U/L Troponin I Less than 0.02 L (0.02-0.05) ng/mL Urine Color (Yellw/Straw) Urine Clarity (Clear) Urine pH (5.0-8.5) Ur Specific [place] (1.002-1.035) Urine Protein (Neg-Trace) mg/dL Urine Glucose (UA) (Negative) mg/dL Urine Ketones (Negative) mg/dL Urine Occult Blood (Negative) Urine Nitrate (Negative) Urine Bilirubin (Negative) Urine Urobilinogen (Less than 2) mg/dL Ur Leukocyte Esterase (Negative) Urine RBC (0-3) /hpf Urine WBC (0-5) /hpf Hyaline Casts (0-3) /lpf Urine Mucus (Occasional) /lpf Micro UA Comment Urine Culture Comments Blood Type Blood Type Recheck Antibody Screen 06/18/18 06/18/18 06/18/18 Range/Units 00:46 04:11 04:40 WBC (4.0-11.0) th/mm3 RBC (4.50-5.90) mil/mm3 Hgb (13.0-17.0) gm/dL POC Hgb (Calc) (13.0-17.0) g/dL Hct (39.0-51.0) % POC Hct (39-51.0) % MCV (80.0-100.0) fL MCH (27.0-34.0) pg MCHC (32.0-36.0) % RDW (11.6-17.2) % Plt Count (150-450) th/mm3 MPV (7.0-11.0) fL Neut % (Auto) (16.0-70.0) % Lymph % (Auto) (9.0-44.0) % [place] % (Auto) (0.0-8.0) % Eos % (Auto) (0.0-4.0) % Baso % (Auto) (0.0-2.0) % Neut # (Auto) (1.8-7.7) th/mm3 Lymph # (Auto) (1.0-4.8) th/mm3 [place] # (Auto) (0.0-0.9) th/mm3 Eos # (Auto) (0.0-0.4) th/mm3 Baso # (Auto) (0.0-0.2) th/mm3 WBC Differential Differential Comment PT (9.8-11.6) sec INR Ratio APTT (24.3-30.1) sec Fibrinogen (227-377) mg/dL POC Sodium (137-144) mmol/L POC Potassium (3.6-5.0) mmol/L POC Chloride (102-111) mmol/L POC BUN (5-21) mg/dL POC Creatinine (0.6-1.3) mg/dL POC Glucose 128 H (68-110) mg/dL Total Creatine Kinase (39-308) U/L Troponin I (0.02-0.05) ng/mL Urine Color Yellow (Yellw/Straw) Urine Clarity Clear (Clear) Urine pH 5.0 (5.0-8.5) Ur Specific [place] 1.035 (1.002-1.035) Urine Protein Negative (Neg-Trace) mg/dL Urine Glucose (UA) Negative (Negative) mg/dL Urine Ketones Negative (Negative) mg/dL Urine Occult Blood Small H (Negative) Urine Nitrate Negative (Negative) Urine Bilirubin Negative (Negative) Urine Urobilinogen 2.0 H (Less than 2) mg/dL Ur Leukocyte Esterase Trace H (Negative) Urine RBC 7 H (0-3) /hpf Urine WBC 4 (0-5) /hpf Hyaline Casts 10 (0-3) /lpf Urine Mucus Few H (Occasional) /lpf Micro UA Comment Culture not ind Urine Culture Comments Culture not ind Blood Type A Negative Blood Type Recheck Not needed Antibody Screen Negative 06/18/18 06/18/18 06/18/18 Range/Units 08:46 11:54 18:39 WBC (4.0-11.0) th/mm3 RBC (4.50-5.90) mil/mm3 Hgb (13.0-17.0) gm/dL POC Hgb (Calc) (13.0-17.0) g/dL Hct (39.0-51.0) % POC Hct (39-51.0) % MCV (80.0-100.0) fL MCH (27.0-34.0) pg MCHC (32.0-36.0) % RDW (11.6-17.2) % Plt Count (150-450) th/mm3 MPV (7.0-11.0) fL Neut % (Auto) (16.0-70.0) % Lymph % (Auto) (9.0-44.0) % [place] % (Auto) (0.0-8.0) % Eos % (Auto) (0.0-4.0) % Baso % (Auto) (0.0-2.0) % Neut # (Auto) (1.8-7.7) th/mm3 Lymph # (Auto) (1.0-4.8) th/mm3 [place] # (Auto) (0.0-0.9) th/mm3 Eos # (Auto) (0.0-0.4) th/mm3 Baso # (Auto) (0.0-0.2) th/mm3 WBC Differential Differential Comment PT (9.8-11.6) sec INR Ratio APTT (24.3-30.1) sec Fibrinogen (227-377) mg/dL POC Sodium (137-144) mmol/L POC Potassium (3.6-5.0) mmol/L POC Chloride (102-111) mmol/L POC BUN (5-21) mg/dL POC Creatinine (0.6-1.3) mg/dL POC Glucose 120 H 105 134 H (68-110) mg/dL Total Creatine Kinase (39-308) U/L Troponin I (0.02-0.05) ng/mL Urine Color (Yellw/Straw) Urine Clarity (Clear) Urine pH (5.0-8.5) Ur Specific [place] (1.002-1.035) Urine Protein (Neg-Trace) mg/dL Urine Glucose (UA) (Negative) mg/dL Urine Ketones (Negative) mg/dL Urine Occult Blood (Negative) Urine Nitrate (Negative) Urine Bilirubin (Negative) Urine Urobilinogen (Less than 2) mg/dL Ur Leukocyte Esterase (Negative) Urine RBC (0-3) /hpf Urine WBC (0-5) /hpf Hyaline Casts (0-3) /lpf Urine Mucus (Occasional) /lpf Micro UA Comment Urine Culture Comments Blood Type Blood Type Recheck Antibody Screen Imaging Data Radiologist's impression: Head CTA 06/18/18 00:00 CONCLUSION: 1. Intracranial vessels are all patent without aneurysmal or embolic disease. 2. Emphysematous changes in the lung apices Neck CTA 06/18/18 00:00 CONCLUSION: 1. Heavily calcified atheromatous plaque with 70% stenosis of the right ICA and 40-50% stenosis of the left ICA. 2. Patent vertebral arteries. Chest X-Ray 06/18/18 00:47 CONCLUSION: 1. Stable examination with chronic appearing interstitial changes, particularly in the right lung. 2. Heart size remains borderline prominent. 3. Stable prominence of the central pulmonary vasculature possibly representing some degree of pulmonary hypertension. 4. No acute infiltrate. Head CT 06/18/18 00:47 CONCLUSION: 1. Chronic changes with stable cortical and central atrophy and scattered periventricular and deep white matter tracts small vessel ischemic demyelination. 2. 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 Report was called by [Dr. Jordan to ]Dr. Go in the ED at 0115 hours ECG Data Attestation: I personally reviewed and interpreted this ECG as follows: Interpretation: The patient had an EKG done on arrival that shows a heart rate of 63, no evident P waves, suspicious for atrial fibrillation, QRS duration is 117 ms with a moderate intraventricular conduction delay, QTC [address] segment elevation, however T waves are inverted in lead II, lead III, aVF. Discharge Plan Discharge Disposition Patient Disposition: 30 Still Patient Discharge Order Discharge Orders: Cardiology Clear for Discharge (Routine); Ordered 06/18/18 Ordered By: Daquan Mata Discharge Details Diagnosis: Transient cerebral ischemia Physicians Team ED Provider: Kayla Go Primary Care Provider: Adele Snell Attending Provider: Rober Patel Other Providers: Juventino Cedillo ; Daquan Mata Discharge Interventions Interventions: ED Discharge Assessment Last Done: 06/18/18 03:35 Vital Signs Last Done: 06/18/18 02:00 Status ED Status: Left Department Discharge Information Discharge Date/Time: 06/18/18 03:36
--- NOTE | 2018-06-18 01:52 | XR ---
EXAM DATE: 06/18/2018 1:16 AM EDT AGE/SEX: 77 years / Male INDICATIONS: Stroke Alert. CLINICAL DATA: This is the patient's initial encounter. Patient reports that signs and symptoms have been present for 1 day and indicates a pain score of 0/10. MEDICAL/SURGICAL HISTORY: Hypercholesterolemia. Gastrointestinal bleed. Arthritis. CVA. A-Fi b. HTN. Diabetes. Carcinoma bladder. . Pacemaker. Aortic valve replacement. Hiatal hernia repair. Bl adder polyp removed. Right hip replacement COMPARISON: [facility], CHEST SINGLE AP, 05/02/2018. . FINDINGS: A single AP view of the chest demonstrates stable chronic appearing interstitial changes. Heart size is borderline prominent with some stable prominence of the central pulmonary vasculature. Left subcla vian bipolar pacer is radiographically intact as are the median sternotomy wires. Osseous structures are intact with multilevel degenerative spurring. CONCLUSION: 1. Stable examination with chronic appearing interstitial changes, particularly in the right lung. 2. Heart size remains borderline prominent. 3. Stable prominence of the central pulmonary vasculature possibly representing some degree of pulmo nary hypertension. 4. No acute infiltrate. Electronically signed by: Jhon Jordan MD 06/18/2018 1:51 AM EDT
[2018-06-18] MEDS ORDERED: Dextrose 50% in Water 50 ML Vial IV.PUSH PRN (02:15)
--- NOTE | 2018-06-18 02:28 | P.HP ---
History of Present Illness Service: [facility] Primary Care Physician: Adele Snell MD History of Present Illness: 77-year-old male with a past medical history significant for CHF with pacemaker , history of multiple, hyperlipidemia and bladder cancer presents to the emergency department for evaluation of altered mental status. The patient's reported that they were in bed when her started crying and his arm was started. She reports he was nonresponsive and unable to follow commands. She called EMS for a alert was called for white and no verbal responses to any questions. In route, the symptoms resolved. The patient has a pacemaker and cannot have an MRI. CT of the head negative. During her interview, the patient is alert and oriented 3. He has no complaints at this time. No chest pain or shortness of breath. No abdominal pain. No lateralizing signs/ symptoms. No fevers/chills. No nausea/vomiting/diarrhea. Review of Systems All other systems reviewed negative except as stated in HPI [facility] - History History Provided By: Patient - Medical History Medical History: Medical History (Last Updated 06/18/18 @ 02:23 by Jeanne Orosco MD) CHF (congestive heart failure) Diabetes mellitus HLD (hyperlipidemia) HTN (hypertension) History of bladder cancer Pacemaker TIA (transient ischemic attack) - Surgical History Surgical History: Surgical History (Last Updated 06/18/18 @ 02:24 by Jeanne Orosco MD) Aortic valve replaced History of repair of hiatal hernia S/P hip replacement - Family History Family History: Family History (Last Updated 06/18/18 @ 02:24 by Jeanne Orosco MD) Other Diabetes - Tobacco History Second Hand Smoke Exposure: No Tobacco Use In Past 30 Days: No Smoking Status: Current every day smoker Tobacco Type: Cigarettes - Alcohol History How Often Do You Have a Drink Containing Alcohol: Never - Substance Use History Substance History: No History of Abuse - Travel History Recent Travel in the [place] Within the Last 8 Weeks: No Recent Travel Out of the Country Within the Last 8 Weeks: No - Immunization History Tetanus Immunization: Unsure Hx Influenza Vaccine This Season: No Medications and Allergies Active Medications: Active Medications Atorvastatin Calcium (Lipitor) 40 mg PO DAILY ZURDO Dextrose (D50w Vial) 50 ml IV.PUSH UNSCH PRN PRN Reason: PER HYPOGLYCEMIA PROTOCOL Ferrous Sulfate (Ferosul) 325 mg PO DAILY ZURDO Furosemide (Lasix) 40 mg PO DAILY ZURDO Sodium Chloride (Ns Inj) 1,000 mls @ 70 mls/hr IV.CONT .[id number] ZURDO Last Admin: 06/18/18 01:06 Dose: 70 mls/hr Allergies Allergy/AdvReac Type Severity Reaction Status Date / Time celecoxib AdvReac Unknown Bleeding Verified 06/18/18 00:48 MRI PRECAUTION AdvReac Severe [facility] STEVE Uncoded 06/18/18 00:48 PACEMAKER MODEL #[id number] Home Medications Medication Instructions Recorded Confirmed Type acetaminophen [Tylenol Arthritis 650 mg PO Q8H PRN 06/18/18 06/18/18 History Pain] atorvastatin 40 mg PO DAILY 06/18/18 06/18/18 History cyanocobalamin-cobamamide [B12] 1,000 mg SUBLINGUAL DAILY 06/18/18 06/18/18 History ferrous sulfate [iron] 325 mg PO DAILY 06/18/18 06/18/18 History furosemide 40 mg PO DAILY 06/18/18 06/18/18 History lisinopril 20 mg PO BID 06/18/18 06/18/18 History metformin 1,000 mg PO BID 06/18/18 06/18/18 History tamsulosin 0.4 mg PO DAILY 06/18/18 06/18/18 History warfarin 5 mg PO 4XW 06/18/18 06/18/18 History warfarin 10 mg PO QTUTHSA 06/18/18 06/18/18 History Exam Vital signs: Vital Signs 06/18/18 00:54 06/18/18 01:07 Temperature 98 F Pulse Rate 64 68 Respiratory Rate 18 18 Blood Pressure 184/78 H 165/65 H Pulse Oximetry 10 L 93 L Intake & Output 06/17/18 06/17/18 06/18/18 06:59 18:59 06:59 Weight 82.8 kg Narrative: Gen.: No acute distress Head: Normocephalic. Atraumatic. EENT: Pupils equal round and reactive to light. Nose without drainage. Airway intact. Throat without injection. Cardiovascular: Regular rate and rhythm. No murmurs, rubs or gallops. Respiratory: Lungs clear to auscultation bilaterally. No wheezes or rhonchi. Abdomen: Soft, nontender, nondistended. No peritoneal signs. Musculoskeletal: No gross deformities. No edema. Skin: No obvious rashes or erythema. Neuro: Sensory intact. Cranial nerves II through XII intact. No slurred speech. Answers questions appropriately. 5/5 strength throughout. Psych: Appropriate mood and affect Results - Labs CBC & Chem 7: 06/18/18 00:46 Labs: Laboratory Results - last 24 hr 06/18/18 06/18/18 06/18/18 00:46 00:46 00:46 WBC 8.2 RBC 3.61 L Hgb 10.8 L POC Hgb (Calc) 11.2 L Hct 32.0 L POC Hct 33.0 L MCV 88.5 MCH 29.8 MCHC 33.6 RDW 18.7 H Plt Count 314 MPV 7.3 Neut % (Auto) 58.4 Lymph % (Auto) 30.1 [place] % (Auto) 9.2 H Eos % (Auto) 1.5 Baso % (Auto) 0.8 Neut # (Auto) 4.8 Lymph # (Auto) 2.5 [place] # (Auto) 0.8 Eos # (Auto) 0.1 Baso # (Auto) 0.1 WBC Differential . Differential Comment Auto diff final PT 44.5 H INR 4.4 APTT 43.4 H Fibrinogen 546 H POC Sodium 139 POC Potassium 4.3 POC Chloride 102 POC BUN 21 POC Creatinine 1.2 POC Glucose 104 Total Creatine Kinase 42 Troponin I Less than 0.02 L Blood Type Blood Type Recheck Antibody Screen 06/18/18 00:46 WBC RBC Hgb POC Hgb (Calc) Hct POC Hct MCV MCH MCHC RDW Plt Count MPV Neut % (Auto) Lymph % (Auto) [place] % (Auto) Eos % (Auto) Baso % (Auto) Neut # (Auto) Lymph # (Auto) [place] # (Auto) Eos # (Auto) Baso # (Auto) WBC Differential Differential Comment PT INR APTT Fibrinogen POC Sodium POC Potassium POC Chloride POC BUN POC Creatinine POC Glucose Total Creatine Kinase Troponin I Blood Type A Negative Blood Type Recheck Not needed Antibody Screen Negative - Imaging Impressions Chest X-Ray 06/18/18 00:47 CONCLUSION: 1. Stable examination with chronic appearing interstitial changes, particularly in the right lung. 2. Heart size remains borderline prominent. 3. Stable prominence of the central pulmonary vasculature possibly representing some degree of pulmonary hypertension. 4. No acute infiltrate. Head CT 06/18/18 00:47 CONCLUSION: 1. Chronic changes with stable cortical and central atrophy and scattered periventricular and deep white matter tracts small vessel ischemic demyelination. 2. 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 Report was called by [Dr. Jordan to ]Dr. Go in the ED at 0115 hours Caprini VTE Risk Assessment Caprini VTE Risk Assessment: Moderate/High Risk (score >= 2) Caprini Risk Assessment Model: Point Value = 1 Point Value = 2 Point Value = 3 Point Value = 5 Age 41-60 Minor surgery BMI > 25 kg/m2 Swollen legs Varicose veins or History of unexplained or recurrent spontaneous Oral contraceptives or hormone replacement Sepsis (< 1 month) Serious lung disease, including pneumonia (< 1 month) Abnormal pulmonary function Acute myocardial infarction Congestive heart failure (< 1 month) History of inflammatory bowel disease Medical patient at bed rest Age 61-74 Arthroscopic surgery Major open surgery (> 45 min) Laparoscopic surgery (> 45 min) Malignancy Confined to bed (> 72 hours) Immobilizing plaster cast Central venous access Age >= 75 History of VTE Family history of VTE Factor V Leiden Prothrombin [id number] Lupus anticoagulant Anticardiolipin antibodies Elevated serum homocysteine Heparin-induced thrombocytopenia Other congenital or acquired thrombophilia Stroke (< 1 month) Elective arthroplasty Hip, pelvis, or leg fracture Acute spinal cord injury (< 1 month) Prophylaxis Regimen: Total Risk Factor Score Risk Level Prophylaxis Regimen 0-1 Low Early ambulation 2 Moderate Order ONE of the following: *Sequential Compression Device (SCD) *Heparin 5000 units SQ BID 3-4 Higher Order ONE of the following medications: *Heparin 5000 units SQ TID *Enoxaparin/Lovenox 40 mg SQ daily (WT < 150 kg, CrCl > 30 mL/min) *Enoxaparin/Lovenox 30 mg SQ daily (WT < 150 kg, CrCl > 10-29 mL/min) *Enoxaparin/Lovenox 30 mg SQ BID (WT < 150 kg, CrCl > 30 mL/min) AND/OR *Sequential Compression Device (SCD) 5 or more Highest Order ONE of the following medications: *Heparin 5000 units SQ TID (Preferred with Epidurals) *Enoxaparin/Lovenox 40 mg SQ daily (WT < 150 kg, CrCl > 30 mL/min) *Enoxaparin/Lovenox 30 mg SQ daily (WT < 150 kg, CrCl > 10-29 mL/min) *Enoxaparin/Lovenox 30 mg SQ BID (WT < 150 kg, CrCl > 30 mL/min) AND *Sequential Compression Device (SCD) Assessment and Plan - Plan Assessment/plan: 1. TIA/altered mental status UA pending CT head negative for acute process CTA, carotid ultrasound pending Neurology consulted, appreciate recommendations 2. Supratherapeutic INR Holding home Coumadin Pharmacy consulted to assist with Coumadin dosing 3. CHF Continue home medications Status post pacemaker placement 4. Diabetes mellitus Holding home metformin Sliding-scale insulin Monitor blood glucose 5. Hypertension/hyperlipidemia Continue home medications FEN N.p.o. Electrolytes: Monitor and replete as needed NS at 70 cc/hour Coumadin
[2018-06-18] MEDS ORDERED: Warfarin Consult Pharmacy 1 EACH OTHER SCH (03:00)
--- NOTE | 2018-06-18 03:58 | CT ---
EXAM DATE: 06/18/2018 3:49 AM EDT AGE/SEX: 77 years / Male INDICATIONS: Right sided weakness. CLINICAL DATA: This is the patient's initial encounter. Patient reports that signs and symptoms have been present for 1 day and indicates a pain score of 0/10. MEDICAL/SURGICAL HISTORY: Cardiovascular disease. Cerebrovascular disease. Hypertension. Diabete s Bladder cancer Pacemaker. RADIATION DOSE: 27.97 CTDI (mGy) ; Combined studies [place] [facility] [place]18[place]. . TECHNIQUE: Volumetric scanning was performed using a multi-row detector CT scanner during bolus infu adrian of 80 ml Omnipaque 350 (iohexol) nonionic water-soluble contrast as a cumulative dose for multi ple exams. The data was post processed with a variety of visualization algorithms including full vo lume maximum intensity projection, multi-planar sliding thin slab reformation, curved planar reformat ion, and surface rendering techniques. Using automated exposure control and adjustment of the mA and /or kV according to patient size, radiation dose was kept as low as reasonably achievable to obtain o ptimal diagnostic quality images. DICOM format image data is available electronically for review and comparison. FINDINGS: There is excellent visualization of the major intracranial arteries out to the second-order branch ve ssels. There is no evidence for aneurysm, vessel truncation or stenosis, and no evidence for vascula r malformation.. Emphysematous changes in fibrosis in the lung apices. CONCLUSION: 1. Intracranial vessels are all patent without aneurysmal or embolic disease. 2. Emphysematous changes in the lung apices Electronically signed by: Jhon Jordan MD 06/18/2018 3:57 AM EDT
[2018-06-18] MEDS: Insulin NovoLOG Aspart Correctional Sugar Inj SQ SCH ×5 (04:46→22:38)
[2018-06-18 04:55] LABS: Bilirubin,Urine Negative (Negative); Clarity,Urine Clear (Clear); Color,Urine Yellow (Yellw/Straw); Glucose,Urine (UA) Negative (Negative); Hyaline Casts,Urine 10 /lpf (0-3); Leukocyte Esterase,Urine Trace (Negative); Mucus,Urine Few /lpf (Occasional); Nitrite,Urine Negative (Negative); Specific Gravity,Urine 1.035 (1.002-1.035)
[2018-06-18] MEDS: Furosemide 40 MG Tablet PO SCH (09:32)
[2018-06-18] MEDS: Ferrous Sulfate 325 MG Tablet PO SCH (09:32)
[2018-06-18] MEDS: Lisinopril 20 MG Tablet PO SCH ×2 (09:32→22:29)
--- NOTE | 2018-06-18 10:17 | P.PN ---
Subjective Interval history: Follow up visit CHF with bpm, history of multiple TIAs, HLD, bladder cancer, altered mental status. Today. Reports he is doing well. States he does not know why he is hospital. Oriented to time, date, person, place. States it is going to be his birthday and he does not want to be in the hospital during his birthday [birth year]. Denies pain and discomfort. Denies SOB/ dyspnea. Denies chest pain, palpitations, headaches, dizziness. Denies fevers, chills, n/v/d. Denies dysuria. Physical Exam Vital signs: Vital Signs 06/18/18 00:54 06/18/18 01:07 06/18/18 02:00 Temperature 98 F Pulse Rate 64 68 78 Respiratory Rate 18 18 16 Blood Pressure 184/78 H 165/65 H 107/78 Pulse Oximetry 10 L 93 L 06/18/18 04:00 06/18/18 08:00 Temperature 98.2 F 97.7 F Pulse Rate 57 L 60 Respiratory Rate 16 16 Blood Pressure 121/59 L 132/63 Pulse Oximetry 95 93 L Intake & Output 06/17/18 06/18/18 06/18/18 18:59 06:59 18:59 Weight 82.8 kg Narrative: GENERAL: This is a well-nourished, well-developed patient, in no apparent distress. SKIN: Warm and dry HEENT: Normocephalic. Pupils equal round and reactive. Nose without bleeding. Airway patent. NECK: Trachea midline. No JVD. Supple. CARDIOVASCULAR: Regular rate and rhythm without murmurs, gallops, or rubs. RESPIRATORY: Clear to auscultation. Breath sounds equal bilaterally. No wheezes , rales, or rhonchi. GASTROINTESTINAL: Abdomen soft, non-tender, nondistended. Bowel Sounds normoactive x4. MUSCULOSKELETAL: Extremities without clubbing, cyanosis, or edema. NEUROLOGICAL: Awake and alert. Oriented to time, place, person. No focal neuro deficit. Moves all extremities. Normal speech. Results - Labs CBC & Chem 7: 06/18/18 00:46 Laboratory Results - last 24 hr 06/18/18 06/18/18 06/18/18 00:46 00:46 00:46 WBC 8.2 RBC 3.61 L Hgb 10.8 L POC Hgb (Calc) 11.2 L Hct 32.0 L POC Hct 33.0 L MCV 88.5 MCH 29.8 MCHC 33.6 RDW 18.7 H Plt Count 314 MPV 7.3 Neut % (Auto) 58.4 Lymph % (Auto) 30.1 [place] % (Auto) 9.2 H Eos % (Auto) 1.5 Baso % (Auto) 0.8 Neut # (Auto) 4.8 Lymph # (Auto) 2.5 [place] # (Auto) 0.8 Eos # (Auto) 0.1 Baso # (Auto) 0.1 WBC Differential . Differential Comment Auto diff final PT 44.5 H INR 4.4 APTT 43.4 H Fibrinogen 546 H POC Sodium 139 POC Potassium 4.3 POC Chloride 102 POC BUN 21 POC Creatinine 1.2 POC Glucose 104 Total Creatine Kinase 42 Troponin I Less than 0.02 L Urine Color Urine Clarity Urine pH Ur Specific [place] Urine Protein Urine Glucose (UA) Urine Ketones Urine Occult Blood Urine Nitrate Urine Bilirubin Urine Urobilinogen Ur Leukocyte Esterase Urine RBC Urine WBC Hyaline Casts Urine Mucus Micro UA Comment Urine Culture Comments Blood Type Blood Type Recheck Antibody Screen 06/18/18 06/18/18 06/18/18 00:46 04:11 04:40 WBC RBC Hgb POC Hgb (Calc) Hct POC Hct MCV MCH MCHC RDW Plt Count MPV Neut % (Auto) Lymph % (Auto) [place] % (Auto) Eos % (Auto) Baso % (Auto) Neut # (Auto) Lymph # (Auto) [place] # (Auto) Eos # (Auto) Baso # (Auto) WBC Differential Differential Comment PT INR APTT Fibrinogen POC Sodium POC Potassium POC Chloride POC BUN POC Creatinine POC Glucose 128 H Total Creatine Kinase Troponin I Urine Color Yellow Urine Clarity Clear Urine pH 5.0 Ur Specific [place] 1.035 Urine Protein Negative Urine Glucose (UA) Negative Urine Ketones Negative Urine Occult Blood Small H Urine Nitrate Negative Urine Bilirubin Negative Urine Urobilinogen 2.0 H Ur Leukocyte Esterase Trace H Urine RBC 7 H Urine WBC 4 Hyaline Casts 10 Urine Mucus Few H Micro UA Comment Culture not ind Urine Culture Comments Culture not ind Blood Type A Negative Blood Type Recheck Not needed Antibody Screen Negative 06/18/18 08:46 WBC RBC Hgb POC Hgb (Calc) Hct POC Hct MCV MCH MCHC RDW Plt Count MPV Neut % (Auto) Lymph % (Auto) [place] % (Auto) Eos % (Auto) Baso % (Auto) Neut # (Auto) Lymph # (Auto) [place] # (Auto) Eos # (Auto) Baso # (Auto) WBC Differential Differential Comment PT INR APTT Fibrinogen POC Sodium POC Potassium POC Chloride POC BUN POC Creatinine POC Glucose 120 H Total Creatine Kinase Troponin I Urine Color Urine Clarity Urine pH Ur Specific [place] Urine Protein Urine Glucose (UA) Urine Ketones Urine Occult Blood Urine Nitrate Urine Bilirubin Urine Urobilinogen Ur Leukocyte Esterase Urine RBC Urine WBC Hyaline Casts Urine Mucus Micro UA Comment Urine Culture Comments Blood Type Blood Type Recheck Antibody Screen - Imaging Impressions Head CTA 06/18/18 00:00 CONCLUSION: 1. Intracranial vessels are all patent without aneurysmal or embolic disease. 2. Emphysematous changes in the lung apices Chest X-Ray 06/18/18 00:47 CONCLUSION: 1. Stable examination with chronic appearing interstitial changes, particularly in the right lung. 2. Heart size remains borderline prominent. 3. Stable prominence of the central pulmonary vasculature possibly representing some degree of pulmonary hypertension. 4. No acute infiltrate. Head CT 06/18/18 00:47 CONCLUSION: 1. Chronic changes with stable cortical and central atrophy and scattered periventricular and deep white matter tracts small vessel ischemic demyelination. 2. 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 Report was called by [Dr. Jordan to ]Dr. Go in the ED at 0115 hours Assessment and Plan - Plan 77-year-old male with a past medical history significant for CHF with pacemaker , history of multiple, hyperlipidemia and bladder cancer presents to the emergency department for evaluation of altered mental status. TIA/altered mental status -UA pending -CT head negative for acute process -CTA neck showed Heavily calcified atheromatous plaque with 70% stenosis of the right ICA and 40-50% stenosis of the left ICA. 2. Patent vertebral arteries. -Carotid ultrasound previously done 05/07/18 Right Internal Carotid Artery, Findings indicate <50% stenosis. Left Internal Carotid Artery: Findings indicate 50-69% stenosis. -Neurology consulted, Dr. Canales appreciate recommendations. Started on Keppra 500 mg twice daily. -EEG pending -Cardiology consulted to further verify if this is a cardiac event, may interrogate pacer. -As per neurology if cardiology cleared patient he may be able to go home. Supratherapeutic INR -Holding home Coumadin -Pharmacy consulted to assist with Coumadin dosing -Monitor INR CHF, not in exacerbation -Continue home medications -Status post pacemaker placement, possible interrogation cardiology consulted. Diabetes mellitus -Holding home metformin -Sliding-scale insulin -Monitor blood glucose Hypertension/hyperlipidemia -Continue home medications DVT Prop Code Status: Full Code Discussed Condition With: Patient, nursing Discharge Planning: DC home when cleared with cardiology and neurology
[2018-06-18] MEDS ORDERED: Acetaminophen 325 MG Tablet PO PRN (10:20)
--- NOTE | 2018-06-18 10:35 | MB ---
cc: Juventino Canales MD DATE: 06/18/2018 HISTORY OF PRESENT ILLNESS: A 77-year-old right-handed man with a history of hypertension, [id number] diabetes, hypercholesterolemia, pacemaker. He sees Dr. Mata. Some TIAs with speech problems in the past. The last episode was 2016. Recent urinary tract infection, going to physical therapy, changed his medications around, got his swelling in his legs better and he was walking better. He usually sees Dr. Ferreira in the office due to some difficulty walking. Last night he was in bed and his heard some moaning. She woke up and the patient had his arms up in the air ears and they were shaking. He does not remember anything until this morning. He does not remember the ambulance ride. He was not talking. He was confused. When the ductfixing plumber got there he was pushing their arms away. He has not been on Wellbutrin or tramadol. REVIEW OF SYSTEMS: He denied any history of renal, hepatic, pulmonary disease, thyroid disease, lupus, ulcer, cancer, seizure. SOCIAL HISTORY: He is a smoker, not a drinker, lives with his . FAMILY HISTORY: Negative for cancer, seizure or stroke, according to the patient. MEDICATIONS AT HOME: 1. He is on Coumadin. He has been on that since the . 2. On Tamsulosin. 3. Lasix. 4. B12 pills. 5. Lisinopril. 6. Iron. 7. Atorvastatin. 8. Metformin. PAST MEDICAL HISTORY: As above, also CHF, hyperlipidemia, bladder cancer, possible TIAs in the past. I had seen him in 2016, noted some COPD, found on the floor. Right-sided weakness that had greatly improved. He was seen by Dr. Ferreira in April of this year, noted an aortic valve replacement, history of atrial fibrillation, change in mentation, UTI, [facility]. Basim valve. DIAGNOSTICS: He had an EEG back in 2015 that was negative. Another EEG at that time was also negative. He has not had any MRIs in the past. He had a neck CTA in April which showed a 70% stenosis, right ICA, 50% on the left. Neck CTA in 2016 was negative bilaterally. Another neck CTA in 2015 also negative bilaterally. A carotid ultrasound in April was basically negative bilaterally. He had a history of negative RPR's, STEPHEN 1:80 only. B12 was normal back in April of this year as well as a folate and thyroid. Serum protein electrophoresis had been negative in the past. PHYSICAL EXAMINATION: VITAL SIGNS: On exam, appears to be sinus rhythm.: Afebrile, 57-60, 121/59. NECK: There were no carotid bruits. HEART: Regular rhythm. I can hear his heart valve close. I do not detect a murmur. NEUROLOGIC: Pupils are equal. Visual urbano are full. Extraocular movements are negative, without nystagmus. Face symmetric. Tongue was midline. He had normal strength in upper and lower extremities bilaterally. DTRs are 1+ and symmetric throughout. Toes withdrew bilaterally. Pinprick is intact throughout. He is not ataxic on [id number]. Speech is fluent. He is not aphasic. He knew the month and the year. He gave a fairly good history. Gait: He tends to walk with small steps, but can take larger steps when asked: No tremor was noted. IMAGING STUDIES: On this admission CT of the brain with just some atrophy. CURRENT LABS: CBC normal. UA on this admission essentially negative. Basic metabolic profile and troponin here negative. INR is 4.4. Hematology negative. Just some white matter changes and some atrophy throughout. IMPRESSION AND RECOMMENDATIONS: It sounds like he had a seizure and I would start him on Keppra at 500 twice per day. We will check an electrocardiogram and will have Cardiology see him and interrogate his pacer. If Cardiology clears him, he could be discharged. We await the CTA results of the neck, however, in the past nothing too severe has been shown and I would not say that this sounds so much like a stroke or transient ischemic accident as it does a seizure. I note in the past he was also found confused and could have had seizures in the past. MD GIL Borjas/CHRISTOPHER , 10:09 AM , 10:34 AM
--- NOTE | 2018-06-18 10:50 | CT ---
EXAM DATE: 06/18/2018 4:07 AM EDT AGE/SEX: 77 years / Male INDICATIONS: Right sided weakness. CLINICAL DATA: This is the patient's initial encounter. Patient reports that signs and symptoms have been present for 1 day and indicates a pain score of 0/10. MEDICAL/SURGICAL HISTORY: Cardiovascular disease. Cerebrovascular disease. Hypertension. Diabete s Bladder cancer Pacemaker. RADIATION DOSE: 27.97 CTDI (mGy) ; Combined studies COMPARISON: HPO, CTA CAROTID ARTERIES W 3D RECON, 05/07/2018. . TECHNIQUE: Volumetric scanning was performed using a multirow detector CT scanner during bolus infus ion of 80 ml Omnipaque 350 (iohexol) nonionic water-soluble contrast as a cumulative dose for multip le exams. The data was postprocessed with a variety of visualization algorithms including full-volu me maximum intensity projection, multiplanar sliding thin-slab reformation, curved-planar reformation , and surface-rendering techniques. Using automated exposure control and adjustment of the mA and/or kV according to patient size, radiation dose was kept as low as reasonably achievable to obtain opti mal diagnostic quality images. DICOM format image data is available electronically for review and co mparison. Elevated flow velocities and ICA/CCA ratios have been found to correlate with increased degrees of ve ssel stenosis, calculated as percentage of diameter relative to a normal segment of distal ICA/CCA. FINDINGS: Aortic Arch: Heavily calcified atheromatous plaque involving the arch and arch vessels. There is a c ommon origin to the left common carotid artery and brachiocephalic arteries. No stenoses involving th e arch vessels. Right Carotid: Again seen is heavily calcified atheromatous plaque throughout the common carotid art atilio, carotid bulb, and proximal ICA. Utilizing NASCET criteria there is a 70% stenosis of the proxima l ICA. No ulceration. The more cephalad portion of the extracranial ICA is patent. 30-40% stenosis of the ECA. The CCA is patent. Appearance is stable.. Left Carotid: Scattered calcified plaque throughout the common carotid artery, extracranial ICA, and ECA. Utilizing NASCET criteria there is a 40 to 50% stenosis involving the ICA origin without ulcera tion. The more cephalad portion of the extracranial ICA is patent. ECA is stenotic at its origin. CCA is patent.. Vertebrals: The vertebral arteries have a symmetric diameter. No stenotic lesions are seen. Chronic interstitial fibrotic change and emphysematous changes noted within the visualized apices. Pa cing device overlies left chest. Median sternotomy wires. Diffuse degenerative cervical spine. CONCLUSION: 1. Heavily calcified atheromatous plaque with 70% stenosis of the right ICA and 40-50% stenosis of t he left ICA. 2. Patent vertebral arteries. Electronically signed by: Prudencio Renee MD 06/18/2018 10:48 AM EDT
[2018-06-18] MEDS: levETIRAcetam 500 MG Tablet PO SCH ×2 (11:52→22:29)
--- NOTE | 2018-06-18 16:37 | MG ---
cc: Juventino Canales MD EEG NUMBER: [id number] INDICATIONS: Possible seizure. FINDINGS: A 7 Hz, 60 microvolt, symmetric posterior rhythm is seen. There is fair amount of muscle artifact over the bitemporal head regions. Photic stimulation is performed without significant posterior driving. Hyperventilation not performed. No epileptiform or seizure activity is noted. There were no hemisphere asymmetries. IMPRESSION: Normal awake electroencephalogram. No evidence for a focal or diffuse abnormality. MD GIL Borjas/CHRISTOPHER , 04:03 PM , 04:36 PM
--- NOTE | 2018-06-18 23:46 | ECG ---
Date Performed: 06/18/2018 Time Performed: 00:49:40 PTAGE: 77 years EKG: SUPRAVENTRICULAR RHYTHM MODERATE INTRAVENTRICULAR CONDUCTION DELAY ST DEVIATION AND MODERAT E T-WAVE ABNORMALITY, CONSIDER INFERIOR ISCHEMIA ABNORMAL ECG Since the PREVIOUS TRACING , no significant change noted DOCTOR: Jason Hanley Interpretating Date/Time 06/18/2018 23:45:49
[2018-06-19] MEDS: Insulin NovoLOG Aspart Correctional Sugar Inj SQ SCH ×3 (03:56→13:05)
[2018-06-19] MEDS: Sod Chloride 0.9% Inj 1,000 ML IV.CONT SCH ×2 (05:55→12:05)
--- NOTE | 2018-06-19 07:37 | P.PNNEU ---
Subjective Subjective Comments: No acute events reported Active Medications: Active Medications Acetaminophen (Tylenol) 650 mg PO Q4H PRN PRN Reason: Pain 1-4, LAZAR, Temp >100.4 Atorvastatin Calcium (Lipitor) 40 mg PO DAILY [facility] Last Admin: 06/18/18 09:35 Dose: 40 mg Dextrose (D50w Vial) 50 ml IV.PUSH UNSCH PRN PRN Reason: PER HYPOGLYCEMIA PROTOCOL Ferrous Sulfate (Ferosul) 325 mg PO DAILY [facility] Last Admin: 06/18/18 09:32 Dose: 325 mg Furosemide (Lasix) 40 mg PO DAILY [facility] Last Admin: 06/18/18 09:32 Dose: 40 mg Glucagon (Glucagon Inj) 1 mg OTHER PRN PRN PRN Reason: for Hypoglycemia Protocol Sodium Chloride (Ns Inj) 1,000 mls @ 70 mls/hr IV.CONT .[id number] [facility] Last Admin: 06/19/18 05:55 Dose: Not Given Sodium Chloride (Ns Inj) 1,000 mls @ 70 mls/hr IV.CONT .[id number] [facility] Last Admin: 06/18/18 16:55 Dose: 70 mls/hr Pharmacy Profile Note (Coumadin Consult Pharmacy) 0 mls @ 0 mls/hr OTHER UNSCH [facility] Insulin Aspart (Novolog Insulin Correctional Sugar Inj) 0 unit SQ ACHS AND 3AM [facility]; Protocol Last Admin: 06/19/18 03:56 Dose: Not Given Levetiracetam (Keppra) 500 mg PO BID [facility] Last Admin: 06/18/18 22:29 Dose: 500 mg Lisinopril (Prinivil) 20 mg PO BID [facility] Last Admin: 06/18/18 22:29 Dose: 20 mg Sodium Chloride (Ns Flush) 2 ml IV.FLUSH PRN PRN PRN Reason: FLUSH AFTER USING IV ACCESS Sodium Chloride (Ns Flush) 2 ml IV.FLUSH BID [facility] Last Admin: 06/18/18 22:28 Dose: Not Given Tamsulosin HCl (Flomax) 0.4 mg PO DAILY [facility] Last Admin: 06/18/18 09:32 Dose: 0.4 mg Allergies/Adverse Reactions: Allergies Allergy/AdvReac Type Severity Reaction Status Date / Time celecoxib AdvReac Unknown Bleeding Verified 06/18/18 00:48 MRI PRECAUTION AdvReac Severe ST STEVE Uncoded 06/18/18 00:48 PACEMAKER MODEL #[id number] Physical Exam Vital signs: Vital Signs 06/18/18 08:00 06/18/18 09:00 06/18/18 12:00 Temperature 97.7 F 98.1 F Pulse Rate 60 60 60 Respiratory Rate 16 16 Blood Pressure 132/63 132/63 Pulse Oximetry 93 L 93 L 06/18/18 16:00 06/18/18 20:00 06/19/18 00:00 Temperature 97.9 F 98.0 F 97.9 F Pulse Rate 60 62 63 Respiratory Rate 18 17 16 Blood Pressure 122/59 L 121/58 L 116/52 L Pulse Oximetry 97 92 L 91 L 06/19/18 04:00 06/19/18 06:32 06/19/18 06:33 Temperature 97.7 F Pulse Rate 62 60 60 Respiratory Rate 16 Blood Pressure 132/61 Pulse Oximetry 92 L Intake & Output 06/18/18 06/19/18 06/19/18 18:59 06:59 18:59 Intake Total 1999 Output Total 700 / 700 Balance 1999 -700 / -700 Intake: IV 1999 NS Inj 1,000 ML @ 70 mls/hr IV. 1999 CONT .[id number] ZURDO Rx#:[id number] Output: Urine 700 / 700 Other: # Voids 4 Narrative: awake alert no c/o sitting up Objective Laboratory Results - last 24 hr 06/18/18 06/18/18 06/18/18 08:46 11:54 18:39 POC Glucose 120 H 105 134 H 06/18/18 06/19/18 22:32 03:27 POC Glucose 126 H 103 Review/Management - Review/Management Plan: imp eeg neg 70% asx r ica stenosis known i dw daughter 2% risk cva from that vs 1% if cea done she could talk this over with pt's pcp on coumadin ldl pend but on statin on keppra i dw daughter he should fu with neurology in town o/p i would like to get his pacer interrogated neurowise could dc on keppra as sounds like he had a sz
[2018-06-19] MEDS: levETIRAcetam 500 MG Tablet PO SCH (08:51)
[2018-06-19] MEDS: Lisinopril 20 MG Tablet PO SCH (08:51)
[2018-06-19] MEDS: Furosemide 40 MG Tablet PO SCH (08:52)
[2018-06-19] MEDS: Ferrous Sulfate 325 MG Tablet PO SCH (08:52)
[2018-06-19 09:49] LABS: INR 3.6 Ratio; Prothrombin Time 36.1 sec (9.8-11.6)
[2018-06-19 09:57] LABS: Anion Gap 9 meq/L (5-15); Blood Urea Nitrogen 13 mg/dL (7-18); Calcium 8.4 mg/dL (8.5-10.1); Carbon Dioxide 23.6 meq/L (21.0-32.0); Chloride 106 meq/L (98-107); Glomerular Filtration Rate Greater Than 89 mL/min (>89); Glucose,Random 80 mg/dL (74-106); Sodium 139 meq/L (136-145)
[2018-06-19 09:58] LABS: Cholesterol 119 mg/dL (120-200)
[2018-06-19 10:00] LABS: Chol/HDL Ratio 2.53 Ratio; HDL Cholesterol 46.9 mg/dL (40.0-60.0); LDL Cholesterol,Calculated 60 mg/dL (0-99); Triglycerides 60 mg/dL (42-150)
--- NOTE | 2018-06-19 11:25 | P.PN ---
Subjective Interval history: Follow up for AMS, supratherapeutic INR. The patient reports feeling better today and adamantly wants to go home. He denies any confusion, headache, lightheadedness, dizziness, chest pain, shortness of breath, or abdominal complaints. He has been cleared by neurology. The patient is refusing any type of HHC, says he will not allow them in the home. Physical Exam Vital signs: Vital Signs 06/18/18 12:00 06/18/18 16:00 06/18/18 20:00 Temperature 98.1 F 97.9 F 98.0 F Pulse Rate 60 60 62 Respiratory Rate 16 18 17 Blood Pressure 132/63 122/59 L 121/58 L Pulse Oximetry 93 L 97 92 L 06/19/18 00:00 06/19/18 04:00 06/19/18 06:32 Temperature 97.9 F 97.7 F Pulse Rate 63 62 60 Respiratory Rate 16 16 Blood Pressure 116/52 L 132/61 Pulse Oximetry 91 L 92 L 06/19/18 06:33 06/19/18 08:54 Temperature 97.6 F Pulse Rate 60 60 Respiratory Rate 16 Blood Pressure 131/63 Pulse Oximetry 96 Intake & Output 06/18/18 06/19/18 06/19/18 18:59 06:59 18:59 Intake Total 1999 Output Total 700 / 700 Balance 1999 -700 / -700 Intake: IV 1999 NS Inj 1,000 ML @ 70 mls/hr IV. 1999 CONT .[id number] ZURDO Rx#:[id number] Output: Urine 700 / 700 Other: # Voids 4 Narrative: GENERAL: Well-nourished, well-developed elderly male patient in [facility]. SKIN: Warm and dry. No rash. HEENT: Normocephalic. Atraumatic. Pupils equal and round. Mucous membranes pink and moist. CARDIOVASCULAR: Regular rate and rhythm. No murmur appreciated. RESPIRATORY: No accessory muscle use. Clear to auscultation. Breath sounds equal bilaterally. GASTROINTESTINAL: Abdomen soft, non-tender, nondistended. Normoactive bowel sounds x4. MUSCULOSKELETAL: No obvious deformities. Extremities without clubbing, cyanosis , or edema. NEUROLOGICAL: Awake and alert. No obvious cranial nerve deficits. Motor grossly within normal limits. Moving all extremities spontaneously. Normal speech. Results - Labs CBC & Chem 7: 06/18/18 00:46 06/19/18 08:45 Laboratory Results - last 24 hr 06/18/18 06/18/18 06/18/18 11:54 18:39 22:32 PT INR Sodium Potassium Chloride Carbon Dioxide Anion Gap BUN Creatinine Estimated GFR POC Glucose 105 134 H 126 H Random Glucose Calcium Triglycerides Cholesterol LDL Cholesterol, Calc HDL Cholesterol Cholesterol/HDL Ratio 06/19/18 06/19/18 06/19/18 03:27 08:05 08:45 PT INR Sodium 139 Potassium 4.0 Chloride 106 Carbon Dioxide 23.6 Anion Gap 9 BUN 13 Creatinine 0.81 Estimated GFR Greater than 89 POC Glucose 103 99 Random Glucose 80 Calcium 8.4 L Triglycerides 60 Cholesterol 119 L LDL Cholesterol, Calc 60 HDL Cholesterol 46.9 Cholesterol/HDL Ratio 2.53 06/19/18 08:45 PT 36.1 H INR 3.6 Sodium Potassium Chloride Carbon Dioxide Anion Gap BUN Creatinine Estimated GFR POC Glucose Random Glucose Calcium Triglycerides Cholesterol LDL Cholesterol, Calc HDL Cholesterol Cholesterol/HDL Ratio Assessment and Plan - Plan 77-year-old male with hx of CHF with pacemaker, TIAs, hyperlipidemia and bladder cancer presents to the ED for evaluation of altered mental status. TIA/altered mental status: -UA unremarkable -CT head negative for acute process -CTA neck showed Heavily calcified atheromatous plaque with 70% stenosis of the right ICA and 40-50% stenosis of the left ICA; recommended outpatient f/up -Carotid ultrasound previously done 05/07/18 Right Internal Carotid Artery, Findings indicate <50% stenosis. Left Internal Carotid Artery: Findings indicate 50-69% stenosis. -Neurology consulted, seen by Dr. Canales, possible seizure, started on Keppra 500 mg twice daily. -EEG normal -Cardiology consulted, patient known to Dr. Mata who cleared the patient for discharge with outpatient f/up -Pacer interrogation unremarkable -Cleared for discharge by neurology on Keppra 500mg bid Supratherapeutic INR: INR 4.4 upon arrival. Goal 2.5-3.5 with mechanical aortic valve. -Holding home Coumadin -Pharmacy consulted to assist with Coumadin dosing -Monitor INR, repeat 3.6, instructed the patient and to hold coumadin again today, have PCP recheck INR in am, and f/up with PCP for further recommendations CHF: chronic, not in exacerbation -Continue home medications including statin, lasix, lisinopril -Status post pacemaker placement, possible interrogation cardiology consulted. 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
--- NOTE | 2018-06-19 12:34 | P.DCO ---
- Physical Therapy Order: Evaluate and treat, Improve ambulation, Strength and gait training - Home Health Nursing Order: Medical education, Signs/symptoms of disease process, Nursing assessment with vital signs - Case Management Consult Yes - Certification I have seen patient Presley Miller on 06/19/18. My clinical findings support the need for the requested home health care services because: Deconditioned with increased weakness, Limited ability to care for self I certify that my clinical findings support that this patient is homebound because: Unsteady gait/balance, Unable to use public transportation
[2018-06-19 17:37] LABS: Hemoglobin A1c 5.6 % (4.3-6.0)
== END 2018-06-19 14:30 | disposition home health service (06) ==
LOC: NEDA 00:45 → NEPE 00:45 → NEPHCDU 00:45
PROVIDERS: ADMIT Internal Medicine; ATTEND Internal Medicine

== ENCOUNTER 2018-11-21 19:23 | Inpatient (IN) ==
--- NOTE | 2018-11-21 20:03 | ED ---
HPI General Chief Complaint: Shortness of Breath/Dyspnea Stated Complaint: Bilat Feet Swelling/Back Pain/A Lot Of Urination Time Seen by Provider: 11/21/18 19:48 Source: patient and family Mode of arrival: ambulatory Limitations: no limitations History of Present Illness 78-year-old male presents to the emergency department by private transportation the care of family for evaluation of progressive worsening shortness of breath pedal edema increased urination and mid to low back pain. Patient states back pain has been worsening over the past several days and is worsened by certain movements and actions such as coughing. Patient denies any new lower extremity numbness tingling or weakness but does have increased pain with attempting to lift his right lower extremity. Patient has limited ambulation due to chronicity of his condition and chronic weakness. Patient typically has some mild pedal edema but has noted significant swelling of the feet and distal lower leg. No fever or chills. No new orthopnea or PND but has had difficulty sleeping over the last several nights due to back pain and shortness of breath. Patient is also had increased urination. No urinary incontinence or bowel incontinence. No saddle anesthesia. Patient does not complaint of any chest pain pleuritic chest pain or abdominal pain. Patient has had reported similar presentation in the past that was related to urinary tract infection. Patient required hospitalization due to possible TIA versus change in medication induced seizure with UTI and metabolic encephalopathy May 2018. Patient is followed by Dr. Ferreira is his neurologist and has been started on Keppra since May. No report of change in other medications. No reported injury or fall. No productive cough. MD Complaint: Reports shortness of breath and cough; Denies pain with inspiration and chest pain Onset (ago): day(s) (4+) Context: Reports occurred during exertion; Denies recent illness, choking/ aspiration, medication noncompliance, allergen exposure, recent travel, smoke/ fume exposure, anxiety, trauma/injury, elevated blood glucose and CO exposure Severity: similar to previous episodes Consistency/Duration: intermittent and progressively worsening Relieving factors: rest Exacerbating factors: lying flat, exertion, movement (twisting standing upon sitting resting supine) and coughing Known history of: Reports COPD, congestive heart failure and diabetes Associated symptoms: Reports cough, wheezing and polyuria; Denies chest pain, pain with inspiration, fever, sputum production, orthopnea, lower extremity pain , polydipsia, paresthesias, palpitations, carpopedal spasm, hemoptysis, diaphoresis, nausea/vomiting, syncope, abdominal pain, rash, sense of impending doom, chest congestion, dizziness and lightheadedness Treatment prior to arrival: Reports none Related Data Home oxygen amount: none Home Medications Medication Instructions Recorded Confirmed acetaminophen [Tylenol Arthritis 650 mg PO Q8H PRN 06/18/18 11/21/18 Pain] atorvastatin 0.5 tab PO DAILY 06/18/18 11/21/18 cyanocobalamin-cobamamide [B12] 1,000 mg SUBLINGUAL DAILY 06/18/18 11/21/18 ferrous sulfate [iron] 325 mg PO DAILY 06/18/18 11/21/18 furosemide 40 mg PO DAILY 06/18/18 11/21/18 lisinopril 20 mg PO BID 06/18/18 11/21/18 metformin 500 mg PO DAILY 06/18/18 11/21/18 tamsulosin 0.4 mg PO BID 06/18/18 11/21/18 warfarin 5 mg PO 4XW 06/18/18 11/21/18 warfarin 10 mg PO QTUTHSA 06/18/18 11/21/18 divalproex 250 mg PO BID 10/16/18 11/21/18 folic acid 1 mg PO DAILY 10/16/18 11/21/18 thxjwtyk-jum-cwirg-vit K-lycop 1 tab PO DAILY 10/16/18 11/21/18 [One-A-Day Men's Multivitamin] omeprazole 40 mg PO DAILY 10/16/18 11/21/18 tiotropium bromide [Spiriva 2 puff INHALATION DAILY 11/21/18 11/21/18 Respimat] Allergies Allergy/AdvReac Type Severity Reaction Status Date / Time celecoxib AdvReac Unknown Bleeding Verified 11/21/18 19:28 oxycodone [From Roxicodone] AdvReac Hallucinati Verified 11/21/18 19:37 ons MRI PRECAUTION AdvReac Severe [facility] Uncoded 10/16/18 09:26 [employer]EMAKER [employer]DEL #[id number] Review of Systems ROS: all other systems reviewed are negative [facility] Medical History Medical History Arthritis (Acute) CHF (congestive heart failure) (Acute) Diabetes mellitus (Acute) Enlarged prostate (Acute) HLD (hyperlipidemia) (Acute) HTN (hypertension) (Acute) Heart attack (Acute) History of GI bleed (Acute) History of anemia (Acute) History of bladder cancer (Acute) History of chronic obstructive lung disease (Acute) Pacemaker (Acute) Seizures (Acute) Stroke (Acute) TIA (transient ischemic attack) (Acute) Surgical History Surgical History AICD (automatic cardioverter/defibrillator) present (Acute) Aortic valve replaced (Acute) History of repair of hiatal hernia (Acute) S/P hip replacement (Acute) Family History Family History Other Diabetes Social History Social History Substance History: No History of Abuse Second Hand Smoke Exposure: No Smoking Status: Current every day smoker Tobacco Type: Cigarettes How Often Do You Have a Drink Containing Alcohol: Never Recent Travel in [facility] within the Last 8 Weeks: No Recent Out of Country Travel within the Last 8 Weeks: No Immunization History Tetanus Immunization: Unsure Exam Narrative Exam Narrative: GENERAL: Well-developed well-nourished elderly male in no acute distress no respiratory distress SKIN: Focused skin assessment warm/dry. HEAD: Atraumatic. Normocephalic. EYES: Pupils equal and round. No scleral icterus. No injection or drainage. ENT: No nasal bleeding or discharge. Mucous membranes pink and moist. NECK: Trachea midline. No JVD. CARDIOVASCULAR: Regular rate and rhythm. No murmur appreciated. RESPIRATORY: No accessory muscle use. Clear to auscultation. Breath sounds equal bilaterally. GASTROINTESTINAL: Abdomen soft, non-tender, nondistended. Hepatic and splenic margins not palpable. MUSCULOSKELETAL: No obvious deformities. No clubbing. No cyanosis. Bilateral 2 + distal lower leg and pedal edema. Pain to upper lumbar spine with attempted elevation of right lower extremity no weakness but decreased ability to left leg secondary to pain. NEUROLOGICAL: Awake and alert. No obvious cranial nerve deficits. Motor grossly within normal limits. Normal speech. PSYCHIATRIC: Appropriate mood and affect; insight and judgment normal. Course Initial Documented Vital Signs Temperature 98.1 F 11/21/18 19:24 Pulse Rate 66 12/26/18 19:24 Respiratory Rate 22 11/21/18 19:24 Blood Pressure 163/72 H 11/21/18 19:24 Pulse Oximetry 94 L 11/21/18 19:24 Last Documented Vital Signs Temperature 98.1 F 11/21/18 19:24 Pulse Rate 68 11/21/18 21:34 Respiratory Rate 18 11/21/18 21:34 Blood Pressure 149/78 H 11/21/18 19:44 Pulse Oximetry 97 11/21/18 21:34 Medical Decision Making MDM Narrative Medical decision making narrative: 78-year-old male with multiple medical problems TIA CVA seizure CAD CHF aortic valve replacement atrial fibrillation COPD GI bleed prostatitis recurrent UTI degenerative disc disease arthritis and diabetes with peripheral neuropathy presents with 4 days of progressive shortness of breath urinary frequency and low back pain. Patient placed on bus monitor with continuous pulse oximetry, IV access obtained, specimens collected and sent for resulting along with EKG and chest x-ray. Chest x-ray some cardiomegaly that appears stable with some vascular patchy congestion no lobar infiltrate. BNP elevated patient given his evening one- time dose Lasix 40 mg IV. Hemoglobin is noted to be 9.6 this is decreased from comparison from May patient's INR is prolonged at 4.3 therefore rectal exam performed shows thick black tarry stool that is briskly Hemoccult positive. Patient with history of previous GI bleed secondary to AVMs. 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 Medical Screen Exam Complete: Yes Emergency Medical Condition: Yes Differential Diagnosis Differential Diagnosis: Dyspnea, COPD, CHF, pneumonia, ACS, anemia, hypoalbuminemia, UTI, uncontrolled diabetes, electrolyte disturbance, arrhythmia , UTI, sepsis Medical Records Medical records reviewed: Yes I reviewed the patient's medical records. Lab Data Result diagrams: 11/21/18 19:56 11/21/18 19:56 Lab Results 11/21/18 11/21/18 11/21/18 Range/Units 19:56 19:56 19:56 CBC w Diff Auto diff final WBC 6.1 (4.0-11.0) th/mm3 RBC 3.13 L (4.50-5.90) mil/mm3 Hgb 9.2 L (13.0-17.0) gm/dL Hct 30.2 L (39.0-51.0) % MCV 96.4 (80.0-100.0) fL MCH 29.4 (27.0-34.0) pg MCHC 30.5 L (32.0-36.0) % RDW 15.6 (11.6-17.2) % Plt Count 327 (150-450) th/mm3 MPV 6.9 L (7.0-11.0) fL Neut % (Auto) 77.7 H (16.0-70.0) % Lymph % (Auto) 12.5 (9.0-44.0) % [place] % (Auto) 7.7 (0.0-8.0) % Eos % (Auto) 1.2 (0.0-4.0) % Baso % (Auto) 0.9 (0.0-2.0) % Neut # (Auto) 4.6 (1.8-7.7) th/mm3 Lymph # (Auto) 0.8 L (1.0-4.8) th/mm3 [place] # (Auto) 0.5 (0.0-0.9) th/mm3 Eos # (Auto) 0.1 (0.0-0.4) th/mm3 Baso # (Auto) 0.1 (0.0-0.2) th/mm3 WBC Differential . Differential Comment . PT 43.4 H (9.8-11.6) sec INR 4.3 Ratio Sodium (136-145) meq/L Potassium (3.5-5.1) meq/L Chloride (98-107) meq/L Carbon Dioxide (21.0-32.0) meq/L Anion Gap (5-15) meq/L BUN (7-18) mg/dL Creatinine (0.60-1.30) mg/dL Estimated GFR (>89) mL/min Random Glucose (74-106) mg/dL Lactic Acid 1.7 (0.4-2.0) mmol/L Calcium (8.5-10.1) mg/dL Magnesium (1.5-2.5) mg/dL Total Bilirubin (0.2-1.0) mg/dL AST (15-37) U/L ALT (12-78) U/L Alkaline Phosphatase (45-117) U/L Total Creatine Kinase (39-308) U/L Troponin I (0.02-0.05) ng/mL B-Natriuretic Peptide (0-100) pg/mL Total Protein (6.4-8.2) g/dL Albumin (3.4-5.0) g/dL Urine Color (Yellw/Straw) Urine Clarity (Clear) Urine pH (5.0-8.5) Ur Specific [place] (1.002-1.035) Urine Protein (Neg-Trace) mg/dL Urine Glucose (UA) (Negative) mg/dL Urine Ketones (Negative) mg/dL Urine Occult Blood (Negative) Urine Nitrate (Negative) Urine Bilirubin (Negative) Urine Urobilinogen (Less than 2) mg/dL Ur Leukocyte Esterase (Negative) Urine RBC (0-3) /hpf Urine WBC (0-5) /hpf Ur Squamous Epith Cells (0-5) /hpf Micro UA Comment Ur Microscopic Review Urine Culture Comments 11/21/18 11/21/18 11/21/18 Range/Units 19:56 19:56 20:25 CBC w Diff WBC (4.0-11.0) th/mm3 RBC (4.50-5.90) mil/mm3 Hgb (13.0-17.0) gm/dL Hct (39.0-51.0) % MCV (80.0-100.0) fL MCH (27.0-34.0) pg MCHC (32.0-36.0) % RDW (11.6-17.2) % Plt Count (150-450) th/mm3 MPV (7.0-11.0) fL Neut % (Auto) (16.0-70.0) % Lymph % (Auto) (9.0-44.0) % [place] % (Auto) (0.0-8.0) % Eos % (Auto) (0.0-4.0) % Baso % (Auto) (0.0-2.0) % Neut # (Auto) (1.8-7.7) th/mm3 Lymph # (Auto) (1.0-4.8) th/mm3 [place] # (Auto) (0.0-0.9) th/mm3 Eos # (Auto) (0.0-0.4) th/mm3 Baso # (Auto) (0.0-0.2) th/mm3 WBC Differential Differential Comment PT (9.8-11.6) sec INR Ratio Sodium 137 (136-145) meq/L Potassium 4.0 (3.5-5.1) meq/L Chloride 101 (98-107) meq/L Carbon Dioxide 27.6 (21.0-32.0) meq/L Anion Gap 8 (5-15) meq/L BUN 21 H (7-18) mg/dL Creatinine 1.50 H (0.60-1.30) mg/dL Estimated GFR 45 L (>89) mL/min Random Glucose 185 H (74-106) mg/dL Lactic Acid (0.4-2.0) mmol/L Calcium 8.4 L (8.5-10.1) mg/dL Magnesium 2.0 (1.5-2.5) mg/dL Total Bilirubin 0.4 (0.2-1.0) mg/dL AST 22 (15-37) U/L ALT 15 (12-78) U/L Alkaline Phosphatase 72 (45-117) U/L Total Creatine Kinase 46 (39-308) U/L Troponin I 0.03 (0.02-0.05) ng/mL B-Natriuretic Peptide 376 H (0-100) pg/mL Total Protein 7.6 (6.4-8.2) g/dL Albumin 3.0 L (3.4-5.0) g/dL Urine Color Yellow (Yellw/Straw) Urine Clarity Clear (Clear) Urine pH 5.5 (5.0-8.5) Ur Specific [place] 1.015 (1.002-1.035) Urine Protein Negative (Neg-Trace) mg/dL Urine Glucose (UA) Negative (Negative) mg/dL Urine Ketones Negative (Negative) mg/dL Urine Occult Blood Trace (Negative) Urine Nitrate Negative (Negative) Urine Bilirubin Negative (Negative) Urine Urobilinogen 0.2 (Less than 2) mg/dL Ur Leukocyte Esterase Negative (Negative) Urine RBC 0-3 (0-3) /hpf Urine WBC 0-5 (0-5) /hpf Ur Squamous Epith Cells 0-5 (0-5) /hpf Micro UA Comment Culture not ind Ur Microscopic Review Microscopic reviewed Urine Culture Comments Culture not ind Imaging Data Radiologist's impression: Chest X-Ray 11/21/18 19:49 CONCLUSION: Stable appearance to the lungs with chronic bilateral interstitial infiltrates. No new findings. Lumbar Spine X-Ray 11/21/18 20:46 CONCLUSION: No acute abnormality. Thoracic Spine X-Ray 11/21/18 20:46 CONCLUSION: No acute abnormality. ECG Data EKG Prior to Arrival: No Attestation: I personally reviewed and interpreted this ECG as follows: (EKG sinus rhythm rate 64 supraventricular rhythm incomplete right bundle branch block no acute ST elevation EKG is compared to previous study from 06/18/18 and unchanged) Discharge Plan Discharge Disposition Patient Disposition: ED Admit(ED Internal Use Only) Discharge Condition Condition: Stable Discharge Details Diagnosis: Upper gastrointestinal bleed, Anticoagulated on Coumadin, CHF (congestive heart failure), Anemia Physicians Team ED Provider: Catherine Bourne Primary Care Provider: Primary Care Physici,No Rxs /Orders / Referrals /Forms Prescriptions: No Action tiotropium bromide [Spiriva Respimat] 1.25 mcg/actuation Mist 2 puff INHALATION DAILY RF: 0 warfarin 5 mg Tablet 5 mg PO 4XW RF: 0 furosemide 40 mg Tablet 40 mg PO DAILY RF: 0 atorvastatin 40 mg Tablet 0.5 tab PO DAILY RF: 0 warfarin 10 mg Tablet 10 mg PO QTUTHSA RF: 0 lisinopril 20 mg Tablet 20 mg PO BID RF: 0 acetaminophen [Tylenol Arthritis Pain] 650 mg Tablet Extended Release 650 mg PO Q8H PRN (Reason: Pain) RF: 0 tamsulosin 0.4 mg Capsule,Extended Release 24hr 0.4 mg PO BID RF: 0 ferrous sulfate [iron] 325 mg (65 mg iron) Tablet 325 mg PO DAILY RF: 0 metformin 1,000 mg Tablet 500 mg PO DAILY RF: 0 cyanocobalamin-cobamamide [B12] 5,000-100 mcg Lozenge 1,000 mg Sublingual DAILY RF: 0 divalproex 250 mg Tablet,Delayed Release (Dr/Ec) 250 mg PO BID RF: 0 omeprazole 40 mg Capsule,Delayed Release(Dr/Ec) 40 mg PO DAILY RF: 0 folic acid 1 mg Tablet 1 mg PO DAILY RF: 0 ebymdxhc-cox-xluzn-vit K-lycop [One-A-Day Men's Multivitamin] 400-20-300 mcg Tablet 1 tab PO DAILY RF: 0 Discharge Interventions Interventions: Vital Signs Last Done: 11/21/18 21:34 Status ED Status: With Doctor
[2018-11-21 20:06] LABS: Baso # (Auto) 0.1 th/mm3 (0.0-0.2); Baso % (Auto) 0.9 % (0.0-2.0); Eos # (Auto) 0.1 th/mm3 (0.0-0.4); Eos % (Auto) 1.2 % (0.0-4.0); Hematocrit 30.2 % (39.0-51.0); Hemoglobin 9.2 gm/dL (13.0-17.0); Lymph # (Auto) 0.8 th/mm3 (1.0-4.8); Lymph % (Auto) 12.5 % (9.0-44.0); Mean Corpuscular HGB Conc 30.5 % (32.0-36.0); Mean Corpuscular Hemoglobin 29.4 pg (27.0-34.0); Mean Corpuscular Volume 96.4 fL (80.0-100.0); Mean Platelet Volume 6.9 fL (7.0-11.0); Mono # (Auto) 0.5 th/mm3 (0.0-0.9); Mono % (Auto) 7.7 % (0.0-8.0); Neut # (Auto) 4.6 th/mm3 (1.8-7.7); Neut % (Auto) 77.7 % (16.0-70.0); Platelet Count 327 th/mm3 (150-450); Red Blood Count 3.13 mil/mm3 (4.50-5.90); Red Cell Distribution Width 15.6 % (11.6-17.2); White Blood Count 6.1 th/mm3 (4.0-11.0)
[2018-11-21 20:21] LABS: Chloride 101 meq/L (98-107); Sodium 137 meq/L (136-145)
[2018-11-21 20:23] LABS: INR 4.3 Ratio; Prothrombin Time 43.4 sec (9.8-11.6)
[2018-11-21 20:24] LABS: Anion Gap 8 meq/L (5-15); Calcium 8.4 mg/dL (8.5-10.1); Carbon Dioxide 27.6 meq/L (21.0-32.0); Glucose,Random 185 mg/dL (74-106)
[2018-11-21 20:25] LABS: Blood Urea Nitrogen 21 mg/dL (7-18)
--- NOTE | 2018-11-21 20:26 | XR ---
EXAM DATE: 11/21/2018 8:21 PM EST AGE/SEX: 78 years / Male INDICATIONS: Short of breath. CLINICAL DATA: This is the patient's initial encounter. Patient reports that signs and symptoms have been present for 1 day and indicates a pain score of 0/10. MEDICAL/SURGICAL HISTORY: . HISTORY: Hypercholesterolemia. Gastrointestinal bleed. Arthritis. C VA. A-Fib. HTN. Diabetes. Carcinoma bladder. . Pacemaker. Aortic valve replacement. Hiatal hernia r epair. Bladder polyp removed. Right hip replacement COMPARISON: [facility], CHEST 1V SINGLE AP, 06/18/2018. [facility], CHEST SINGLE AP, 05/02/2018. [facility], CHEST SIN GLE AP, 11/21/2016. . FINDINGS: There are chronic interstitial infiltrates in the perihilar region, right upper lung, right infrahila r and left lower lung, similar to multiple prior chest x-rays. The heart is enlarged. Evidence of donna or median sternotomy. Both hemidiaphragms remain discernible. No evidence of pneumothorax. Stable cur vature of the thoracolumbar spine convex towards the left. Cardiac pacer leads and prior median ferguson otomy. CONCLUSION: Stable appearance to the lungs with chronic bilateral interstitial infiltrates. No new findings. Electronically signed by: Prudencio Garcia MD Board Certified Radiologist 11/21/2018 8:24 PM EST
[2018-11-21 20:27] LABS: Alanine Aminotransferase 15 U/L (12-78)
[2018-11-21 20:28] LABS: Aspartate Aminotransferase 22 U/L (15-37); Glomerular Filtration Rate 45 mL/min (>89)
[2018-11-21 20:29] LABS: Total Protein 7.6 g/dL (6.4-8.2)
[2018-11-21 20:30] LABS: Alkaline Phosphatase 72 U/L (45-117)
[2018-11-21 20:33] LABS: Troponin I 0.03 ng/mL (0.02-0.05)
[2018-11-21 20:34] LABS: Bilirubin,Urine Negative (Negative); Clarity,Urine Clear (Clear); Color,Urine Yellow (Yellw/Straw); Glucose,Urine (UA) Negative (Negative); Leukocyte Esterase,Urine Negative (Negative); Nitrite,Urine Negative (Negative); PH,Urine 5.5 (5.0-8.5); Specific Gravity,Urine 1.015 (1.002-1.035); Urobilinogen,Urine 0.2 mg/dL (Less than 2)
[2018-11-21 20:40] LABS: RBC,Urine 0-3 /hpf (0-3); Squamous Epithelial Cell,Urine 0-5 /hpf (0-5); WBC,Urine 0-5 /hpf (0-5)
[2018-11-21 20:47] LABS: Creatine Kinase 46 U/L (39-308)
--- NOTE | 2018-11-21 21:34 | XR ---
EXAM DATE: 11/21/2018 9:28 PM EST AGE/SEX: 78 years / Male INDICATIONS: Back pain. No known injury. CLINICAL DATA: This is the patient's initial encounter. Patient reports that signs and symptoms have been present for 1 day and indicates a pain score of 6/10. MEDICAL/SURGICAL HISTORY: None. None. COMPARISON: No prior exams available for comparison. FINDINGS: Frontal and lateral views of the lumbar spine show diffuse osteopenia. Scoliotic curvature with conca vity towards the patient's left centered at L2. No fracture or dislocation. Diffuse calcified plaque throughout the abdominal aorta and inflow vessels. Overlying bowel gas patterns unremarkable. CONCLUSION: No acute abnormality. Electronically signed by: Prudencio Renee MD Board Certified Radiologist 11/21/2018 9:33 PM EST
--- NOTE | 2018-11-21 21:35 | XR ---
EXAM DATE: 11/21/2018 9:29 PM EST AGE/SEX: 78 years / Male INDICATIONS: Back pain, no known injury. CLINICAL DATA: This is the patient's initial encounter. Patient reports that signs and symptoms have been present for 1 day and indicates a pain score of 5/10. MEDICAL/SURGICAL HISTORY: None. None. COMPARISON: No prior exams available for comparison. FINDINGS: Frontal and lateral views of the thoracic spine show diffuse osteopenia. Mild scoliotic curvature. Di ffuse disc space narrowing and mild anterior osteophyte production. No fracture or dislocation observ ed. Median sternotomy wires and pacing device noted. CONCLUSION: No acute abnormality. Electronically signed by: Prudencio Renee MD Board Certified Radiologist 11/21/2018 9:34 PM EST
[2018-11-21] MEDS ORDERED: Dextrose 50% in Water 50 ML Vial IV.PUSH PRN (23:14)
[2018-11-21] MEDS ORDERED: Acetaminophen 325 MG Tablet PO PRN (23:15)
[2018-11-21] MEDS ORDERED: Divalproex 250 MG DR Tablet PO SCH (23:30)
[2018-11-21] MEDS ORDERED: Pantoprazole Inj 80 MG in Sodium Chlor 0.9% Inj 100 ML IV.CONT SCH (23:45)
[2018-11-22 02:05] LABS: Hematocrit 29.2 % (39.0-51.0); Hemoglobin 9.1 gm/dL (13.0-17.0)
[2018-11-22 06:15] LABS: ABG Base Excess -1.2 mmol/L (-2-2); ABG PCO2 44 mmHg (38-42); ABG PO2 74 mmHg (61-120)
--- NOTE | 2018-11-22 06:45 | CT ---
EXAM DATE: 11/22/2018 6:42 AM EST AGE/SEX: 78 years / Male INDICATIONS: Possible seizure. CLINICAL DATA: This is the patient's initial encounter. Patient reports that signs and symptoms have been present for 1 day and indicates a pain score of 3/10. MEDICAL/SURGICAL HISTORY: Seizures. Stroke. Transient ischemic attack. Defibrillator. RADIATION DOSE: 59.12 CTDI (mGy) ; Patient motion COMPARISON: [facility] [place], CT HEAD W/O CONTRAST, 06/18/2018. . TECHNIQUE: CT of the head without contrast. Using automated exposure control and adjustment of the mA and/or kV according to patient size, radiation dose was kept as low as reasonably achievable to ob tain optimal diagnostic quality images. DICOM format image data is available electronically for revi ew and comparison. FINDINGS: Examination is limited by patient motion. Cerebrum: Moderate diffuse cerebral atrophy. The ventricles are normal for degree of atrophy. No olivia dence of midline shift, mass lesion, hemorrhage or acute infarction. No extraaxial fluid collections are seen. Posterior Fossa: The cerebellum and brainstem are intact. The 4th ventricle is midline. The cerebe llopontine angle is unremarkable. Extracranial: The visualized portion of the orbits is intact. Skull: The calvaria is intact. No evidence of skull fracture. CONCLUSION: 1. Motion limited examination. 2. No acute intracranial abnormality. . Electronically signed by: Obdulio Castro MD Board Certified Radiologist 11/22/2018 6:44 AM LORI Estrada
[2018-11-22 06:48] LABS: Hematocrit 30.7 % (39.0-51.0); Hemoglobin 9.4 gm/dL (13.0-17.0); Mean Corpuscular Hemoglobin 29.7 pg (27.0-34.0); Mean Corpuscular Volume 96.8 fL (80.0-100.0); Mean Platelet Volume 7.3 fL (7.0-11.0); Platelet Count 308 th/mm3 (150-450); Red Blood Count 3.17 mil/mm3 (4.50-5.90); Red Cell Distribution Width 15.9 % (11.6-17.2); White Blood Count 7.4 th/mm3 (4.0-11.0)
[2018-11-22 06:49] LABS: Mean Corpuscular HGB Conc 30.7 % (32.0-36.0)
[2018-11-22 07:02] LABS: Potassium 3.9 meq/L (3.5-5.1)
[2018-11-22 07:06] LABS: Calcium 8.4 mg/dL (8.5-10.1)
[2018-11-22 07:07] LABS: Carbon Dioxide 24.9 meq/L (21.0-32.0)
[2018-11-22 07:15] LABS: Troponin I 0.08 ng/mL (0.02-0.05)
--- NOTE | 2018-11-22 08:26 | ECG ---
Date Performed: 11/21/2018 Time Performed: 20:04:19 PTAGE: 78 years EKG: SUPRAVENTRICULAR RHYTHM INCOMPLETE RIGHT BUNDLE BRANCH BLOCK POSSIBLE LATERAL MYOCARDIAL IN FARCTION MODERATE T-WAVE ABNORMALITY, CONSIDER INFERIOR ISCHEMIA ABNORMAL ECG Since the PREVIOUS TRACING , no significant change noted PREVIOUS TRACIN06/18/2018 00.49 DOCTOR: Brittani Orona Interpretating Date/Time 11/22/2018 08:24:16
[2018-11-22] MEDS ORDERED: Ferrous Sulfate 325 MG Tablet PO SCH (09:00)
[2018-11-22] MEDS ORDERED: SPIRIVA RESPIMAT PO SCH (09:00)
[2018-11-22] MEDS ORDERED: Lisinopril 20 MG Tablet PO SCH (09:00)
[2018-11-22] MEDS ORDERED: Furosemide 40 MG Tablet PO SCH (09:00)
[2018-11-22] MEDS ORDERED: Folic Acid 1 MG Tablet PO SCH (09:00)
--- NOTE | 2018-11-22 09:36 | P.HPIM ---
History of Present Illness Primary Care Physician: No Primary Care Physician History of Present Illness: 78-year-old male with a history of atrial fibrillation, mechanical aortic valve on Coumadin, seizure disorder, moderate to severe aortic stenosis, anemia from chronic bleeding AVMs, who is brought into the ER with history of worsening shortness of breath and bilateral lower extremity edema. In the ER, patient was noted to have hematochezia. Unfortunately overnight patient experienced a generalized seizure. He currently appears to be moderately postictal, however cannot tell me the year. He says he is not sure why he is here. He does feel a that he has been having some shortness of breath but cannot tell me for how long. He denies any chest pain. Family not at bedside at the time of examination. Inpatient Certification: I certify that the inpatient services were ordered in accordance with Medicare regulations governing the order. This includes certification that hospital inpatient services are reasonable and necessary and in the case of services not specified as inpatient-only under 42 CFR 419.22(n), that they are appropriately provided as inpatient services in accordance to with the 2-midnight benchmark under 43 CFR 412.3(e) Review of Systems Patient denies any pain. When asked other symptoms like dysuria or why he came in, he says he is not sure unobtainable due to mental status PMFSH - History History Provided By: Patient - Medical History Medical History: Medical History (Last Reviewed 11/22/18 @ 09:22 by Constantine Dale MD) History of GI bleed History of anemia History of chronic obstructive lung disease Arthritis CHF (congestive heart failure) Diabetes mellitus Enlarged prostate HLD (hyperlipidemia) HTN (hypertension) Heart attack History of bladder cancer Pacemaker Seizures Stroke TIA (transient ischemic attack) - Surgical History Surgical History: Surgical History (Last Reviewed 11/22/18 @ 09:23 by Constantine Dale MD) AICD (automatic cardioverter/defibrillator) present Aortic valve replaced History of repair of hiatal hernia S/P hip replacement - Family History Family History: Family History (Last Reviewed 11/22/18 @ 09:23 by Constantine Dale MD) Other Diabetes - Social History I have reviewed the patient's Social History: Yes - Tobacco History Second Hand Smoke Exposure: Yes Tobacco Use In Past 30 Days: Yes Smoking Status: Current every day smoker Tobacco Type: Cigarettes - Alcohol History How Often Do You Have a Drink Containing Alcohol: Never - Substance Use History Substance History: No History of Abuse - Travel History Recent Travel in the [place] Within the Last 8 Weeks: No Recent Travel Out of the Country Within the Last 8 Weeks: No - Immunization History Tetanus Immunization: >5 Years Hx Influenza Vaccine This Season: Yes Medications and Allergies Active Medications: Active Medications Acetaminophen (Tylenol) 650 mg PO Q8H PRN PRN Reason: PAIN 1-10 Albuterol (Duoneb Neb (Prn)) 1 ampul NEB Q2HR NEB PRN PRN Reason: SHORTNESS OF BREATH/WHEEZING Atorvastatin Calcium (Lipitor) 20 mg PO DAILY [facility] Dextrose (D50w Vial) 50 ml IV.PUSH UNSCH PRN PRN Reason: PER HYPOGLYCEMIA PROTOCOL Divalproex Sodium (Depakote Dr) 250 mg PO BID [facility] Last Admin: 11/22/18 01:34 Dose: 250 mg Ferrous Sulfate (Ferosul) 325 mg PO DAILY [facility] Folic Acid (Folic Acid) 1 mg PO DAILY [facility] Furosemide (Lasix) 40 mg PO DAILY [facility] Glucagon (Glucagon Inj) 1 mg OTHER PRN PRN PRN Reason: for Hypoglycemia Protocol Pantoprazole Sodium 80 mg/ (Sodium Chloride) 100 mls @ 10 mls/hr IV.CONT Q10H [facility] Stop: 11/22/18 09:44 Last Admin: 11/22/18 01:35 Dose: 10 mls/hr Thiamine HCl 500 mg/ Sodium (Chloride) 255 mls @ 62.5 mls/hr IV.SIG ONCE ONE Stop: 11/22/18 15:04 Valproate Sodium 500 mg/ (Sodium Chloride) 105 mls @ 105 mls/hr IV.SIG Q8H [facility] Insulin Aspart (Novolog Insulin Correctional Sugar Inj) 0 unit SQ ACHS [facility]; Protocol Lisinopril (Prinivil) 20 mg PO BID [facility] Pt Own Spiriva (Respimat) 0 each PO DAILY [facility] Tamsulosin HCl (Flomax) 0.4 mg PO BID [facility] Allergies Allergy/AdvReac Type Severity Reaction Status Date / Time celecoxib AdvReac Unknown Bleeding Verified 11/21/18 19:28 oxycodone [From Roxicodone] AdvReac Hallucinati Verified 11/21/18 19:37 ons MRI PRECAUTION AdvReac Severe [facility] Uncoded 10/16/18 09:26 PACEMAKER MODEL #[id number] Home Medications Medication Instructions Recorded Confirmed Type acetaminophen [Tylenol Arthritis 650 mg PO Q8H PRN 06/18/18 11/21/18 History Pain] atorvastatin 0.5 tab PO DAILY 06/18/18 11/21/18 History cyanocobalamin-cobamamide [B12] 1,000 mg SUBLINGUAL DAILY 06/18/18 11/21/18 History ferrous sulfate [iron] 325 mg PO DAILY 06/18/18 11/21/18 History furosemide 40 mg PO DAILY 06/18/18 11/21/18 History lisinopril 20 mg PO BID 06/18/18 11/21/18 History metformin 500 mg PO DAILY 06/18/18 11/21/18 History tamsulosin 0.4 mg PO BID 06/18/18 11/21/18 History warfarin 5 mg PO 4XW 06/18/18 11/21/18 History warfarin 10 mg PO QTUTHSA 06/18/18 11/21/18 History divalproex 250 mg PO BID 10/16/18 11/21/18 History folic acid 1 mg PO DAILY 10/16/18 11/21/18 History yuasinpy-yzl-qqfew-vit K-lycop 1 tab PO DAILY 10/16/18 11/21/18 History [One-A-Day Men's Multivitamin] omeprazole 40 mg PO DAILY 10/16/18 11/21/18 History tiotropium bromide [Spiriva 2 puff INHALATION DAILY 11/21/18 11/21/18 History Respimat] Exam Vital signs: Vital Signs 11/21/18 19:24 11/21/18 19:44 11/21/18 20:03 Temperature 98.1 F Pulse Rate 66 65 Respiratory Rate 22 20 Blood Pressure 163/72 H 149/78 H Pulse Oximetry 94 L 94 L 94 L 11/21/18 21:34 11/21/18 22:05 11/21/18 23:56 Temperature Pulse Rate 68 65 Respiratory Rate 18 20 Blood Pressure 144/63 H Pulse Oximetry 97 95 95 11/22/18 00:00 11/22/18 06:00 11/22/18 06:42 Temperature 97.5 F L 96.9 F L Pulse Rate 60 60 Respiratory Rate 18 16 Blood Pressure 159/65 H 185/73 H Pulse Oximetry 94 L 94 L 93 L 11/22/18 07:30 11/22/18 09:03 Temperature 97.7 F Pulse Rate 62 Respiratory Rate 16 Blood Pressure 129/56 L Pulse Oximetry 92 L 93 L Intake & Output 11/21/18 11/22/18 11/22/18 18:59 06:59 18:59 Output Total 1100 / 1100 Balance -1100 / -1100 Weight 90.4 kg Output: Urine 1100 / 1100 Other: Weight On Admission 90.4 kg Narrative: GENERAL: Patient lying in bed. Sleeping, wakes up for exam. He initially says it is 1986, however subsequently tells me it is October. SKIN: Warm and dry. HEAD: Atraumatic. Normocephalic. EYES: Pupils equal and round. No scleral icterus. No injection or drainage. ENT: No nasal bleeding or discharge. Mucous membranes pink and moist. NECK: Trachea midline. No JVD. CARDIOVASCULAR: Regular rate and rhythm. RESPIRATORY: No accessory muscle use. Clear to auscultation. Breath sounds equal bilaterally. GASTROINTESTINAL: Abdomen soft, non-tender, nondistended. Hepatic and splenic margins not palpable. MUSCULOSKELETAL: Extremities without clubbing, cyanosis. +2 peripheral edema. No erythema.. No obvious deformities. NEUROLOGICAL: Awake. Somnolent.. No obvious cranial nerve deficits. Motor grossly within normal limits. Five out of 5 muscle strength in the arms and legs. Slow speech. PSYCHIATRIC: Appropriate mood and affect; insight and judgment normal. Results - Labs CBC & Chem 7: 11/22/18 06:23 11/22/18 06:23 Labs: Short CBC 11/21/18 11/22/18 11/22/18 Range/Units 19:56 02:00 06:23 WBC 6.1 7.4 (4.0-11.0) th/mm3 Hgb 9.2 L 9.1 L 9.4 L (13.0-17.0) gm/dL Hct 30.2 L 29.2 L 30.7 L (39.0-51.0) % Plt Count 327 308 (150-450) th/mm3 11/22/18 Range/Units 08:00 WBC (4.0-11.0) th/mm3 Hgb Cancelled (13.0-17.0) gm/dL Hct Cancelled (39.0-51.0) % Plt Count (150-450) th/mm3 [facility] 11/21/18 11/22/18 19:56 06:23 Sodium 137 140 Potassium 4.0 3.9 Chloride 101 102 Carbon Dioxide 27.6 24.9 BUN 21 H 21 H Creatinine 1.50 H 1.50 H Calcium 8.4 L 8.4 L Cardiac Enzymes 11/21/18 11/22/18 Range/Units 19:56 06:23 Total Creatine Kinase 46 (39-308) U/L Troponin I 0.03 0.08 H (0.02-0.05) ng/mL Liver Function 11/21/18 Range/Units 19:56 Total Bilirubin 0.4 (0.2-1.0) mg/dL AST 22 (15-37) U/L ALT 15 (12-78) U/L Alkaline Phosphatase 72 (45-117) U/L Albumin 3.0 L (3.4-5.0) g/dL Urine 11/21/18 Range/Units 20:25 Urine Color Yellow (Yellw/Straw) Urine Clarity Clear (Clear) Urine pH 5.5 (5.0-8.5) Ur Specific [place] 1.015 (1.002-1.035) Urine Protein Negative (Neg-Trace) mg/dL Urine Glucose (UA) Negative (Negative) mg/dL - Imaging Impressions Chest X-Ray 11/21/18 19:49 CONCLUSION: Stable appearance to the lungs with chronic bilateral interstitial infiltrates. No new findings. Lumbar Spine X-Ray 11/21/18 20:46 CONCLUSION: No acute abnormality. Thoracic Spine X-Ray 11/21/18 20:46 CONCLUSION: No acute abnormality. Head CT 11/22/18 06:10 CONCLUSION: 1. Motion limited examination. 2. No acute intracranial abnormality. . Caprini VTE Risk Assessment Caprini VTE Risk Assessment: Moderate/High Risk (score >= 2) VTE Pharmacological Exception Reason: High risk for bleeding Caprini Risk Assessment Model: Point Value = 1 Point Value = 2 Point Value = 3 Point Value = 5 Age 41-60 Minor surgery BMI > 25 kg/m2 Swollen legs Varicose veins or History of unexplained or recurrent spontaneous Oral contraceptives or hormone replacement Sepsis (< 1 month) Serious lung disease, including pneumonia (< 1 month) Abnormal pulmonary function Acute myocardial infarction Congestive heart failure (< 1 month) History of inflammatory bowel disease Medical patient at bed rest Age 61-74 Arthroscopic surgery Major open surgery (> 45 min) Laparoscopic surgery (> 45 min) Malignancy Confined to bed (> 72 hours) Immobilizing plaster cast Central venous access Age >= 75 History of VTE Family history of VTE Factor V Leiden Prothrombin [id number] Lupus anticoagulant Anticardiolipin antibodies Elevated serum homocysteine Heparin-induced thrombocytopenia Other congenital or acquired thrombophilia Stroke (< 1 month) Elective arthroplasty Hip, pelvis, or leg fracture Acute spinal cord injury (< 1 month) Prophylaxis Regimen: Total Risk Factor Score Risk Level Prophylaxis Regimen 0-1 Low Early ambulation 2 Moderate Order ONE of the following: *Sequential Compression Device (SCD) *Heparin 5000 units SQ BID 3-4 Higher Order ONE of the following medications: *Heparin 5000 units SQ TID *Enoxaparin/Lovenox 40 mg SQ daily (WT < 150 kg, CrCl > 30 mL/min) *Enoxaparin/Lovenox 30 mg SQ daily (WT < 150 kg, CrCl > 10-29 mL/min) *Enoxaparin/Lovenox 30 mg SQ BID (WT < 150 kg, CrCl > 30 mL/min) AND/OR *Sequential Compression Device (SCD) 5 or more Highest Order ONE of the following medications: *Heparin 5000 units SQ TID (Preferred with Epidurals) *Enoxaparin/Lovenox 40 mg SQ daily (WT < 150 kg, CrCl > 30 mL/min) *Enoxaparin/Lovenox 30 mg SQ daily (WT < 150 kg, CrCl > 10-29 mL/min) *Enoxaparin/Lovenox 30 mg SQ BID (WT < 150 kg, CrCl > 30 mL/min) AND *Sequential Compression Device (SCD) Assessment and Plan - Plan //Suspected acute CHF exacerbation on admission What appears to be chronic infiltrates on chest x-ray. BNP elevated at 376. Troponins trended to 0.08. Patient denies chest pain on exam. 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 //Acute GI bleed on top of chronic GI bleeding from AVMs //Hades Syndrome //Acute hematochezia. -Hematochezia noted in the ER INR elevated at 4.2. -On Protonix drip. -Hemoglobin 9.2 from 10.8 in May. -GI consulted. Appreciate assistance. //History of aortic valve stenosis //Mechanical aortic valve -INR elevated at 4.3. Will avoid overly aggressive reversal. -Continue to monitor INRs. //Acute generalized seizure -Currently postictal = Valproic acid level low. Will consult patient's neurologist. Start on scheduled Keppra IV. //History of stroke. On chronic anticoagulation with Coumadin. //Diabetes. Insulin sliding scale. Monitor sugars. //Hyperlipidemia. Chronic. Continue medication. Discussed Condition With: Patient, ER physician. H&P: Quality - VTE Deep Vein Thrombosis/Pulmonary Embolism Present on Admission: No
[2018-11-22] MEDS: Insulin NovoLOG Aspart Correctional Sugar Inj SQ SCH ×3 (09:55→17:57)
[2018-11-22] MEDS ORDERED: Valproate Inj 500 MG in Sodium Chlor 0.9% Inj 100 ML IV.SIG SCH (10:00)
[2018-11-22 10:53] LABS: INR 2.7 Ratio; Prothrombin Time 26.8 sec (9.8-11.6)
[2018-11-22] MEDS ORDERED: Thiamine Inj 500 MG in Sodium Chlor 0.9% Inj 250 ML IV.SIG ONE (11:00)
[2018-11-22 13:36] LABS: Hemoglobin 9.3 gm/dL (13.0-17.0)
[2018-11-22 14:21] VITALS: PULSE 60
--- NOTE | 2018-11-22 15:31 | MB ---
cc: Juventino Canales MD DATE: 11/22/2018 HISTORY OF PRESENT ILLNESS: A 78-year-old with a history of hypertension, lxl-[id number]-rwpclqqyy diabetes, hypercholesterolemia, aortic valve replacement, pacemaker on Coumadin GI bleed, AVMs in the GI tract, atrial fibrillation, CHF, prostate cancer, bladder cancer not active, multiple strokes that have not left him with any major disability. He came in for swollen feet, CHF. He had a seizure about a year or so ago and then another one about 6 weeks ago. At that time, he was not on any antiepileptic medications because of Keppra that he was put on prior made him tired. As such, he was started on 500 of Depakote one time and then 250 mg a day, followed by Dr. Bowen. Then he came in for the CHF here and evidently had a seizure today in the hospital. His is seen one seizure and that was where he shook all over and seemed out of it and then did not remember the episode after it occurred. He was seen by Dr. Ferreira in April 2018 for confusion, metabolic encephalopathy, trouble getting his words out. CT scan was negative x2. He is not MRI compatible. Unfortunately, I do not have his old records when I had seen him prior, which must have been before the new system was up and his old chart will not download on the computer from the prior system. On his old charts, he did in [address] Sharma, which was negative. I do have a progress note; however, from May. He had an EEG at that time, his EEG was normal. I did a consultation on him in May; noted that he saw Dr. Mata. He had a recent UTI. His heard some moaning. His arms are in the air; shaking. That must have been his first seizure. She put him on Keppra 500 b.i.d. He had a neck CTA at that time, which is 70% stenosis on the right, 40%-50% on the left. He had a CTA of the [place] at that time which was negative. He did not have any new problems or seizures; seemed to be doing better. I thought it was an asymptomatic right ICA stenosis, which was known. I talked about the risk of stroke from that with his daughter at that time. I had recommended his pacer get interrogated. I did talk with the nursing staff here. Evidently very early this morning, the nurse heard some moaning. He went in and he was having a grand mal seizure and he was confused afterwards. He was not on telemetry at the time and currently is; however. He also had some back pain. MEDICATIONS: Currently, he is on Lipitor, Depakote 250 t.i.d., though apparently was on once a day at home. Prior it looks like he was on twice a day here, though his daughter told me just once a day. His home medications have him on Depakote 250 twice a day. Again, I talked with his daughter. She says he was only taking the 250 once a day at home. At home he is also on: 1. Coumadin. 2. Omeprazole. 3. Metformin. 4. Lisinopril. 5. Lasix. 6. Folic acid. 7. B12. 8. Atorvastatin. 9. P.r.n. Tylenol. Here he is on Depakote; now t.i.d. and he is off the Coumadin. PHYSICAL EXAMINATION: VITAL SIGNS: Afebrile, 60, 18, 146/65. NECK: There were no carotid bruits. HEART: Regular rate and rhythm. I did not detect a murmur. NEUROLOGIC: Pupils are equal. Visual urb[place] are full. Extraocular movements intact without nystagmus. Face is symmetric with normal sensation. Tongue was midline. No drift. Normal strength in upper and lower extremities bilaterally. DTRs are 2-3+ and symmetric upper and lower extremities bilaterally. No clonus. Toes are downgoing bilaterally. Pinprick is intact throughout the extremities. He is awake and alert. He is oriented x3. Speech is fluent. He is not aphasic. No apparent distress. BACK: To percussion, back was nontender. LABORATORY DATA: His hemoglobin is 9.3 today and it was normal when he came in here, so has not dropped; platelet count has been normal; sedimentation rate in the past was 1. UA on this admission negative. Basic metabolic profile: Creatinine 1.5; that is up a little bit from what it had been prior in May. Lactic acid 6.4. Glucose normal. Ammonia 36. Troponin 0.08. LDL cholesterol was normal in 05/2018 as was a B12 and a thyroid, TSH and folate level. ABG here: 7.35, 44, 74. INR here initially when admitted 4.3; today 2.7. RPR has been negative. Depakote level was only 27 here when he was admitted; just on 1 pill a day. OTHER REPORTS: 1. He had an echocardiogram done in April; showed a normal ejection fraction, left atrial size moderately enlarged, aortic valve sclerosis, moderate to severe aortic stenosis. 2. He had a CT scan of his brain done yesterday; was read as normal, no acute abnormality, review of the films. He cannot have an MRI due to his pacemaker and valve. His ventricles are somewhat prominent; some diffuse atrophy, moderate amount. 3. He had a lumbar spine x-ray done, it was negative. IMPRESSION: History of seizures with subtherapeutic Depakote level. We will check a level in the morning now that he is on a t.i.d. dosing; 250. In addition, we can check an EEG on him. He is hyperreflexive throughout. We will check a CT scan of his cervical spine and also his lumbar spine with the new onset back pain for about going on about 2 weeks and the history of prostate cancer and bladder cancer. Otherwise, I would put him back on his anticoagulation with his current INR and watch his hematocrit and I will be following him in the hospital. Apparently he has had several strokes in the past according to his daughter and with a history of atrial fibrillation. MD GIL Borjas/liborio/salvador , 02:38 PM , 02:53 PM
--- NOTE | 2018-11-22 16:26 | CT ---
EXAM DATE: 11/22/2018 4:11 PM EST AGE/SEX: 78 years / Male INDICATIONS: Myelopathy. CLINICAL DATA: This is the patient's initial encounter. Patient reports that signs and symptoms have been present for 1 day and indicates a pain score of 0/10. MEDICAL/SURGICAL HISTORY: Renal insufficiency, chronic. Chronic obstructive pulmonary disease. Transient ischemic attack. Stroke. Diabetes. Bladder cancer. Hypertension. Seizures. Congestive he art failure. Pacemaker. Defibrillator. Hemorrhoidectomy. Hiatal hernia. Aortic valve replacement. RADIATION DOSE: 26.41 CTDI (mGy) COMPARISON: [facility], CTA NECK W CONTRAST W 3D, 06/18/2018. . TECHNIQUE: Contiguous axial images were obtained using helical multirow detector technique. The vol umetric data was post-processed with multiplanar reconstruction in oblique axial, sagittal, and coron al planes. Using automated exposure control and adjustment of the mA and/or kV according to patient s ize, radiation dose was kept as low as reasonably achievable to obtain optimal diagnostic quality ying ges. DICOM format image data is available electronically for review and comparison. FINDINGS: Cervical spine alignment is satisfactory. There is no evidence of cervical spine fracture. There are degenerative changes throughout with disc space narrowing at all visualized levels and small endplate osteophytes most notably at C5-6 and C6-7. No significant bony canal or foraminal stenosis. No evide nce of paraspinal mass or hematoma. CONCLUSION: Degenerative changes. No acute bony findings. Electronically signed by: Omar Trent MD Board Certified Radiologist 11/22/2018 4:25 PM EST
--- NOTE | 2018-11-22 16:30 | CT ---
EXAM DATE: 11/22/2018 4:22 PM EST AGE/SEX: 78 years / Male INDICATIONS: Low back pain. Evaluate for mass. CLINICAL DATA: This is the patient's initial encounter. Patient reports that signs and symptoms have been present for 3 days and indicates a pain score of 8/10. MEDICAL/SURGICAL HISTORY: Renal insufficiency, chronic. Transient ischemic attack. Chronic obstru ctive pulmonary disease. Stroke. Diabetes. Bladder cancer. Hypertension. Seizures. Congestive heart failure. Pacemaker. Defibrillator. Aortic valve replacement. Hiatal hernia. RADIATION DOSE: 40.07 CTDI (mGy) COMPARISON: No prior exams available for comparison. TECHNIQUE: Contiguous axial images were acquired with a multirow detector CT scanner without contras t. Multiplanar reconstructions in the sagittal and coronal plane were also performed. Using automate d exposure control and adjustment of the mA and/or kV according to patient size, radiation dose was k ept as low as reasonably achievable to obtain optimal diagnostic quality images. DICOM format image data is available electronically for review and comparison. FINDINGS: There is mild scoliotic curvature. No evidence of spondylolisthesis. Mild inferior endplate compressi ve deformity involving T12 which appears old. Degenerative changes present throughout without signifi cant bony canal compromise. No evidence of paraspinal mass or hematoma. Disc bulges and dorsal ligame nt hypertrophy which appear to produce at least moderate degree of low lumbar canal stenosis most not ably at L3-4 and L4-5. Elsewhere on the scan, note is made of bilateral pleural effusion CONCLUSION: Degenerative change and disc disease with at least a moderate degree of canal stenosis in the low lum bar spine. Electronically signed by: Omar Trent MD Board Certified Radiologist 11/22/2018 4:28 PM EST
[2018-11-22] MEDS ORDERED: Warfarin Consult Pharmacy OTHER PRN (16:33)
[2018-11-22] MEDS ORDERED: Divalproex 250 MG DR Tablet PO SCH (18:00)
[2018-11-22 18:06] VITALS: BP 128/60; RESP 16; TEMP 96.8; O2SAT 96
--- NOTE | 2018-11-22 19:48 | ECG ---
Date Performed: 11/22/2018 Time Performed: 06:12:55 PTAGE: 78 years EKG: SUPRAVENTRICULAR RHYTHM INCOMPLETE RIGHT BUNDLE BRANCH BLOCK ST DEVIATION AND MODERATE T-WA VE ABNORMALITY, CONSIDER LATERAL ISCHEMIA ST DEVIATION AND MODERATE T-WAVE ABNORMALITY, CONSIDER INFE RIOR ISCHEMIA Since the previous tracing, no significant change noted ABNORMAL ECG PREVIOUS TRACING : 11/21/2018 20.04 DOCTOR: Brittani Orona Interpretating Date/Time 11/22/2018 19:46:37
--- NOTE | 2018-11-23 14:08 | MG ---
cc: Daljit Ferreira MD, PhD TEST NUMBER: [id number]. TECHNIQUE: A 17-channel EEG. DESCRIPTION: Background rhythm reveals a symmetrical alpha activity. Frequency is 8 Hz, amplitude about 20-30 microvolts. During drowsiness, there is slowing in the theta range, roughly 6 Hz. The patient does appear to fall asleep and normal sleep spindles are identified. No evidence for epileptiform discharges is seen. Photic results in the normal driving response. INTERPRETATION: Normal electroencephalogram. Daljit Ferreira MD, PhD ABBY/ct , 01:54 PM , 01:58 PM
== END 2018-11-22 19:35 | disposition home or self-care (01) | DRG 292 ==
LOC: PHED 19:23 → PHEDA 21:55 → PH3 23:23
PROVIDERS: ADMIT Internal Medicine; ATTEND Internal Medicine
CPT/HCPCS: 36600; 70450; 71010; 71045; 72072; 72100; 72125; 72131; 80048; 80053; 80164; 81001; 82140; 82550; 82805; 82948; 82962; 83520; 83605; 83735; 83880; 84484; 85014; 85018; 85025; 85027; 85610; 87040; 90774; 93005; 95819; 96374; 99285; C8952; C9113; C9238; J1940; J1953